=== PATIENT | male | born 1955 | race Caucasian/White ===

== ENCOUNTER 2020-02-19 07:15 | Outpatient (REF) | payer MEDICAID, SELFPAY ==
--- NOTE | 2020-02-19 07:28 | CT_ITS ---
EXAMINATION: CT CHEST SCREENING CLINICAL INFORMATION: Nicotine dependence. COMPARISON: CT chest 09/30/2014. TECHNIQUE: Multidetector volumetric CT imaging of the chest is performed without contrast using low dose technique. Additional 2D coronal and sagittal reformatted images and axial 3D maximum intensity projection (MIP) images are generated on the CT workstation. This CT examination was performed using dose optimization techniques as appropriate, variously including the following: *Automated exposure control *Adjustment of mA and/or kV according to patient size (this includes techniques or standardized protocols for targeted exams where dose is matched to indication/reason for exam; i.e. extremities or head) *Use of iterative reconstruction technique DLP: 53 mGy-cm. FINDINGS: LUNGS: There is diffuse paraseptal and centrilobular emphysema. Previously visualized 2 mm nodule left upper lobe and a 3 mm nodule right lower lobe adjacent to major fissure have resolved or not visualized. There is mild thickening of the right major fissure new since the previous study. The thickness is nodular and measures approximately 7 mm at the thickest segment on axial image 248/6. There is mild subpleural thickening and patchy of ground-glass opacity right lower lobes subpleural location similar to previous study. A 2 mm nodule in the left upper lobe, axial image 256/6 is stable, previously visualized on image 236/4. Calcified tumor nodule right lower lobe is stable. Peripheral subpleural base nodule right lower lobe seen previously is not visualized on the present exam. MEDIASTINUM: The thyroid lobes are symmetrical and normal. The central trachea and the bronchi are widely patent. Heart size and the great vessels are normal caliber. There is mild atherosclerotic changes of thoracic arch and coronary artery calcifications. No pericardial effusion seen. PLEURA: There is no pleural effusion. No pleural mass or thickening. AXILLA: No lymphadenopathy. UPPER ABDOMEN: Visualized liver, spleen, pancreas and bilateral adrenal glands are unremarkable. OSSEOUS STRUCTURES: No gross bony abnormality seen. CT/CT lung screening IMPRESSION: Interval resolution of several pulmonary nodules. No new pulmonary nodules seen. ASSESSMENT: Lung-RADS category 2: Benign. RECOMMENDATION: Low-dose annual CT chest.
== END 2020-02-19 07:16 | disposition home or self-care (01) ==
LOC: HO.CT 07:15
PROVIDERS: Visit Provider Surgery
DX: Z12.2 Encounter for screening for malignant neoplasm of respiratory organs (principal); F17.210 Nicotine dependence, cigarettes, uncomplicated
CPT/HCPCS: 71250

== ENCOUNTER → 2020-08-26 08:46 | Outpatient (BNVA) | payer MEDICAID, SELFPAY | PROVIDERS: PCP Nurse Practitioner Family; Visit Provider Internal Medicine | DX: R07.2 Precordial pain (principal); I25.10 Atherosclerotic heart disease of native coronary artery without angina pectoris; I10 Essential (primary) hypertension; F17.200 Nicotine dependence, unspecified, uncomplicated; E78.5 Hyperlipidemia, unspecified; Z79.899 Other long term (current) drug therapy; Z71.6 Tobacco abuse counseling | CPT/HCPCS: 93005; 99212 ==

== ENCOUNTER → 2020-10-15 09:09 | Outpatient (REF) | payer MEDICAID, SELFPAY ==
--- NOTE | 2020-10-15 09:13 | CA_ITS ---
Transthoracic Echocardiogram Patient (Last, First, Middle): Marques Hoskins L Gender: Male Date of : 1955 Age: 64 Procedure Date: 10/15/2020 Procedure Type: Transthoracic Echocardiogram Location: OP Height: 165.1 cm Weight: 90.72 kg BSA: 1.98 m2 Heart Rate: bpm BP: 138 / 64 mmHg Health Safety Coordinator: CHEVY Referring MD: Vega Mays MD Symptoms: I25.10 - Atherosclerotic heart disease of [place] coronary... Study Quality: Fair ECG Rhythm: Sinus Conclusions: - The left ventricular systolic function is normal. The visually estimated ejection fraction is between 60-65%. - No obvious valvular pathology seen on this study. Findings Left Ventricle Normal left ventricular cavity size. There is normal left ventricular wall thickness. The left ventricular systolic function is normal. The visually estimated ejection fraction is between 60-65%. The calculated ejection fraction is 64% by biplane method. There is no evidence of regional wall motion abnormalities. E/E prime ratio is between 8 and 15 consistent with indeterminate filling pressures. Evidence suggests grade I (mild) diastolic dysfunction. Right Ventricle Normal right ventricular cavity size and systolic function. Atria Both atria are normal in size. Aortic Valve There is a normal trileaflet aortic valve. There is no aortic valve stenosis. There is no aortic valve regurgitation. Mitral Valve The mitral valve appears normal. There is no mitral valve regurgitation. There is no mitral valve stenosis. Pulmonic Valve The pulmonic valve was not well visualized. Tricuspid Valve Normal tricuspid valve structure. There is trace tricuspid valve regurgitation. Tricuspid regurgitation envelope is inadequate for calculation of right ventricular systolic pressure. Great Vessels The asc aorta is normal in size. Venous The inferior vena cava is normal in size and collapses greater than 50% with inspiration. Pericardium/Pleural There is no evidence of pericardial effusion. Prior Study Comparison No significant change compared to prior study dated: 11/17/2019. Recommendations, Care & Conclusions No obvious valvular pathology seen on this study. Measurements M-Mode Liner Measurements Normals - Women/Men AOV Cusps: 2.00 1.5-2.6 cm/m2 2D Linear Measurements IVSd: 0.78 0.6-0.9/0.6-1.0 cm LVIDd: 4.51 3.9-5.3/4.2-5.9 cm LVIDd Index: 2.28 2.4-3.2/2.2-3.1 cm/m2 LVIDs: 2.51 2.0-3.6 cm LVPWd: 0.90 0.7-1.1 cm Ao Root: 3.10 2.1-3.5 cm LA Diam: 3.90 2.7-3.8/3.0-4.0 cm LAIDs Index: 1.97 1.5-2.3 cm/m2 LV Mass: 150.54 67-162/88-224 g LV Mass Index: 76.03 43-95/49-115 g/m2 LVOT Diam: 2.00 3.0+(-)1.3 cm 2D Systolic Function EF 4C: 66.60 >55% EF 2C: 60.30 >55% EF BiP: 64.40 >55% Mitral Valve MV Pk E: 1.05 MV PK A: 1.18 MV Decel Time: 347.00 E/A: 0.90 E'Lateral: 7.72 E'Medial: 5.11 E/E' Med: 20.50 E/E' Lat: 13.60 PHT: 102.00 MVA PHT: 2.16 Decel Hughes: 3.04 Aortic Valve AoV Pk Stanton: 1.26 AoV Mn Stanton: 0.93 AoV VTI: 0.30 AoV Pk Grad: 6.00 Aov Mn Grad: 4.00 VÍCTOR Cont.VTI: 2.86 LVOT LVOT Pk Stanton: 1.24 LVOT Mn Stanton: 0.85 LVOT VTI: 0.27 LVOT Pk Grad: 6.00 LVOT Mn Grad: 3.00 LVOT Diam: 2.00 LVOT Area: 3.14 Diastolic Function MV Pk E: 1.05 MV Pk A: 1.18 E/A: 0.90 E'Medial: 5.11 E/E' Med: 20.50 E' Laterial: 7.72 E/E' Lat: 13.60 Tricuspid Valve RA Press: 3.00 Great Vessels Aorta Ao Root-2D: 3.10 2.0-3.7 cm Ao Asc: 3.30 2.1-3.4 cm Pulmonary Valve PV Pk Stanton: 1.15 Peak PV Grad: 5.00 Updated in Other Vendor System with Status of Final Vega Mays MD electronically signed on 10/16/2020 2:50:29 PM with status of Final
== END ==
LOC: HO.CARD 09:09
PROVIDERS: Visit Provider Internal Medicine
DX: R07.2 Precordial pain (principal); I25.10 Atherosclerotic heart disease of native coronary artery without angina pectoris
CPT/HCPCS: 93306

== ENCOUNTER → 2020-10-19 08:16 | Outpatient (BNVA) | payer MEDICAID, SELFPAY | PROVIDERS: PCP Nurse Practitioner Family; Visit Provider Internal Medicine | DX: I25.10 Atherosclerotic heart disease of native coronary artery without angina pectoris (principal); I10 Essential (primary) hypertension; R07.2 Precordial pain; E78.5 Hyperlipidemia, unspecified | CPT/HCPCS: 99212 ==

== ENCOUNTER 2022-01-27 09:13 | Outpatient (REF) | payer MEDICAID, SELFPAY ==
--- NOTE | ~2022-01-27 | CT_ITS ---
EXAMINATION: CT CHEST SCREENING CLINICAL INFORMATION: Current smoker. 50 pack-year history. COMPARISON: Previous chest CT most recent January 2020 TECHNIQUE: Multidetector volumetric CT imaging of the chest is performed without contrast using low dose technique. Additional 2D coronal and sagittal reformatted images and axial 3D maximum intensity projection (MIP) images are generated on the CT workstation. This CT examination was performed using dose optimization techniques as appropriate, variously including the following: *Automated exposure control *Adjustment of mA and/or kV according to patient size (this includes techniques or standardized protocols for targeted exams where dose is matched to indication/reason for exam; i.e. extremities or head) *Use of iterative reconstruction technique DLP: 61 mGy-cm FINDINGS: LUNGS: There is evidence of emphysema. There is evidence of peripheral interstitial lung disease with increased peripheral interstitial markings, increased peripheral attenuation and traction bronchiolectasis. This is seen diffusely throughout the lungs. This is greatest at the lung bases in the right lower lobe. This appears increased from previous exams. Stable 2 mm calcified right lower lobe nodule axial image 219 series 5. The other previously described small pulmonary nodules not appreciated. There is stable pleural thickening along the right major fissure and probable accessory right lower lobe fissure. There is a new 3 mm peripheral or subpleural nodular density right upper lobe axial image 248 series 5. On sagittal and coronal images this appears more linear and may represent an area of scarring or atelectasis as opposed to a nodule. No endobronchial or endotracheal lesion. MEDIASTINUM: Normal heart size. No pericardial effusion. Normal caliber thoracic aorta. Small mediastinal lymph nodes. No enlarged lymph nodes. CORONARY ARTERY CALCIFICATION: Moderate PLEURA: There is no pleural effusion. No pleural mass or thickening. AXILLA: No lymphadenopathy. UPPER ABDOMEN: Severe atherosclerotic disease. There may be diverticulosis of the colon. OSSEOUS STRUCTURES: Unremarkable. CT/CT lung screening IMPRESSION: Emphysema and interstitial lung disease. Interstitial disease has increased compared to 2020 exam. Stable thickening along the right pleural fissure and small calcified right lower lobe nodule. ASSESSMENT: Lung-RADS category 2: Benign RECOMMENDATION: Annual low-dose chest CT follow-up recommended.
== END 2022-01-27 09:14 | disposition home or self-care (01) ==
LOC: HO.CT 09:13
PROVIDERS: Visit Provider Physician Assistant Medical
DX: Z12.2 Encounter for screening for malignant neoplasm of respiratory organs (principal); F17.210 Nicotine dependence, cigarettes, uncomplicated
CPT/HCPCS: 71271

== ENCOUNTER 2023-01-30 09:51 | Outpatient (REF) | payer MEDICARE, MEDICAID, SELFPAY ==
--- NOTE | ~2023-01-30 | US_ITS ---
EXAMINATION: US RETROPERITONEAL LIMITED (AORTA) CLINICAL INFORMATION: Atherosclerotic heart disease. Smoker. Screening. COMPARISON: CT abdomen and pelvis 07/27/2014. TECHNIQUE: Manzo-scale, color Doppler and spectral Doppler evaluation of the abdominal aorta. Technically difficult study secondary to body habitus. FINDINGS: Atherosclerotic aorta. The measurements of the aorta in maximum AP and transverse dimensions respectively are as follows: Proximal: 2.8 x 2.5 cm. Mid: 2.6 x 2.9 cm. Distal: 1.7 x 2.3 cm. PSV: 95.4 cm/s. The measurements of the common iliac arteries in maximum AP and TRV dimensions are as follows: Right: AP: 1.1 cm. TRV: 1.2 cm. Left: AP: 0.8 cm. TRV: 1.1 cm. US/US aorta IMPRESSION: Negative for abdominal aortic aneurysm.
== END 2023-01-30 09:52 | disposition home or self-care (01) ==
LOC: HO.HMGCX 09:51
PROVIDERS: PCP Nurse Practitioner Family; Visit Provider Nurse Practitioner Family
DX: I25.10 Atherosclerotic heart disease of native coronary artery without angina pectoris (principal); F17.219 Nicotine dependence, cigarettes, with unspecified nicotine-induced disorders
CPT/HCPCS: 76775

== ENCOUNTER 2023-03-07 08:30 | Outpatient (REF) | payer MEDICARE, MEDICAID, SELFPAY ==
--- NOTE | ~2023-03-07 | CT_ITS ---
EXAMINATION: CT CHEST SCREENING CLINICAL INFORMATION: 50 pack year smoker COMPARISON: None available. TECHNIQUE: Multidetector volumetric CT imaging of the chest is performed without contrast using low dose technique. Additional 2D coronal and sagittal reformatted images and axial 3D maximum intensity projection (MIP) images are generated on the CT workstation. This CT examination was performed using dose optimization techniques as appropriate, variously including the following: *Automated exposure control *Adjustment of mA and/or kV according to patient size (this includes techniques or standardized protocols for targeted exams where dose is matched to indication/reason for exam; i.e. extremities or head) *Use of iterative reconstruction technique DLP: 66 mGy-cm FINDINGS: [employer]ING: Aortic calcifications. Clear lungs. LUNGS: Trachea and bronchi are patent. Paraseptal emphysema. Mild centrilobular emphysema. Dependent atelectasis. No consolidations or groundglass opacities. Stable 2 mm subpleural RUL 6:232. No new or enlarging pulmonary nodules. MEDIASTINUM:. No thyroid abnormality. No pathologic lymphadenopathy. Nonenlarged heart. No pericardial effusion. Atherosclerotic calcifications nonaneurysmal aorta and branch vessels. Nonenlarged pulmonary arteries. CORONARY ARTERY CALCIFICATION: Severe PLEURA: There is no pleural effusion. No pleural mass. Unchanged right fissural nodularity. AXILLA: No lymphadenopathy. UPPER ABDOMEN: Unremarkable OSSEOUS STRUCTURES: No suspicious osseous lesions. CT/CT lung screening IMPRESSION: Stable 2 mm right upper lobe pulmonary nodule and emphysema. ASSESSMENT: Lung-RADS category 2: Benign RECOMMENDATION: Routine annual low-dose CT screening in 12 months.
== END 2023-03-07 08:31 | disposition home or self-care (01) ==
LOC: HO.CT 08:30
PROVIDERS: PCP Nurse Practitioner Family; Visit Provider Physician Assistant Medical
DX: Z12.2 Encounter for screening for malignant neoplasm of respiratory organs (principal); F17.210 Nicotine dependence, cigarettes, uncomplicated
CPT/HCPCS: 71271

== ENCOUNTER → 2023-03-26 07:41 | Day surgery (SDC) | payer MEDICARE, MEDICAID, SELFPAY ==
--- NOTE | 2023-03-20 14:22 | HO.ANESPROP2 ---
HPI - Anesthesia Eval Consult details Narrative: 67yo M for Left Left Cataract Extraction IOL Insertion Medically optimized No previous cataract on record [facility] Active Problems Active Problems: All Active Problems (Updated 03/13/23 @ 13:00 by Sujata Salazar PA-C) Other and unspecified hyperlipidemia (Acute) Essential hypertension (Acute) Atherosclerotic cardiovascular disease (Acute) Precordial chest pain (Acute) Past Medical History Medical History (Updated 03/13/23 @ 13:00 by Sujata Salazar PA-C) Other and unspecified hyperlipidemia Essential hypertension Atherosclerotic cardiovascular disease Family History Family History Father Alzheimer disease Myocardial infarction CVD (cardiovascular disease) Mother Alzheimer disease HTN (hypertension) Surgical History Surgical History History of cardiac catheterization (~09/16/14) Social History (Updated 10/19/20 @ 08:45 by CHERYL Levy) Patient Tobacco Use Status: Current everyday Tobacco user Tobacco use type: Cigarette Cigarette Packs Per Day: 1 Cigarettes Per Day: 20.0 Use of substances other than those prescribed or required for medical reasons: No Are you DNR?: No Advance Directives: No Advance Directives Information Provided: Yes Advance Directives on File: No Meds Allergies Allergy/AdvReac Type Severity Reaction Status Date / Time No Known Allergies Allergy Verified 10/19/20 08:45 [No Known Allergies*] oxycodone AdvReac Unknown does not Verified 10/19/20 08:45 want unless necessary Home Medications Medication Instructions Recorded Confirmed Last Taken Type aspirin 81 mg tablet,delayed 81 mg PO DAILY 08/26/20 10/19/20 Unknown History release atorvastatin 20 mg tablet 20 mg PO DAILY 08/26/20 10/19/20 Unknown History lisinopril 20 mg tablet 20 mg PO DAILY 08/26/20 10/19/20 Unknown History metoprolol succinate 100 mg 100 mg PO DAILY 08/26/20 10/19/20 Unknown History tablet,extended release 24 hr nitroglycerin 0.4 mg sublingual 0.4 mg sublingual Q5M PRN 08/26/20 10/19/20 Unknown History tablet Assessment and Plan Assessment Anesthesia Assessment: Chart Reviewed
[2023-03-26 09:31] VITALS: BMI 31.3
--- NOTE | 2023-03-26 09:52 | PC.NURSE ---
patient requesting medication to help ease his anxiety before the IV placement. [employer] to Dr. Richey and Dr. Freeman. Orders received for 025mg ativan po from Dr. Richey. patient refusing ativan dose, states i take 3 pills of ativan at home, i want something stronger . Patient ripped off BP cuff and unhooked EKG leads and states I am leaving . this RN asked if patient wants to wait to speak to anesthesia and he refused. Dr Freeman, Dr. Richey, Dr. Coles and Shannan Wang, [employer] aware.
== END ==
PROVIDERS: PCP Nurse Practitioner Family; Visit Provider Ophthalmology
DX: H25.12 Age-related nuclear cataract, left eye (principal); Z53.29 Procedure and treatment not carried out because of patient's decision for other reasons; I10 Essential (primary) hypertension; Z79.899 Other long term (current) drug therapy
CPT/HCPCS: J3301

== ENCOUNTER 2023-07-18 09:19 | Emergency (ER) | payer MEDICARE, MEDICAID, SELFPAY ==
--- NOTE | ~2023-07-18 | XR_ITS ---
EXAMINATION: XR CHEST CLINICAL INFORMATION: Shortness of breath COMPARISON: Chest radiograph from 10/23/2017 TECHNIQUE: Frontal view of the chest was obtained. FINDINGS: Chronic interstitial lung markings. Bibasilar streaky opacities potentially representing atelectasis versus scarring. Right apical pleural parenchymal scarring. No pneumothorax. Trachea is midline. Cardiac mediastinal silhouette is borderline enlarged. Aorta demonstrates a sclerotic calcifications. No large pleural effusion. Osseous structures are intact. Soft tissues are unremarkable. XR/XR chest 1V IMPRESSION: 1. Chronic interstitial lung markings. 2. Bibasilar streaky opacities potentially representing atelectasis versus scarring. 3. Right apical pleural parenchymal scarring.
[2023-07-18 09:32] VITALS: BP 146/41; PULSE 75; RESP 22; TEMP 36.7; O2SAT 98; BMI 32.9
--- NOTE | 2023-07-18 09:38 | ECG_ITS ---
Test Reason : sob, dizziness Blood Pressure : / mmHG Vent. Rate : 068 BPM Atrial Rate : 068 BPM P-R Int : 196 ms QRS Dur : 070 ms QT Int : 398 ms P-R-T Axes : 089 003 041 degrees QTc Int : 423 ms Normal sinus rhythm Normal ECG When compared with ECG of 20-JUL-2015 19:47, Vent. rate has decreased BY [address] and T wave abnormality improved Referred By: Generic ED Physician Electronically Signed By:SHAILA COPELAND
[2023-07-18 10:08] LABS: MANUAL DIFF FLAG NO
[2023-07-18 10:15] LABS: Basophils Absolute Auto 0.1 X10*3/uL (0.0-0.2); Basophils Percent Auto 0.9 % (0-2); Eosinophils Absolute Auto 1.2 X10*3/uL (0.0-0.4); Eosinophils Percent Auto 10.6 % (0-4); Hematocrit 40.9 % (42.0-52.0); Hemoglobin 14.7 g/dl (14.0-18.0); Imm Gran Abs Auto 0.06 X10*3/uL (0.00-0.03); Imm Gran Pct Auto 0.5 % (0.0-0.4); Lymphocytes Absolute Auto 3.2 X10*3/uL (1.2-4.9); Lymphocytes Percent Auto 28.1 % (20-40); Mean Corpuscular HGB Conc 35.9 g/dl (31.0-36.0); Mean Corpuscular Hemoglobin 33.3 pg (27.0-33.0); Mean Corpuscular Volume 92.5 fL (80.0-98.0); Mean Platelet Volume 8.7 fL (9.4-12.4); Monocytes Absolute Auto 1.3 X10*3/uL (0.1-1.2); Monocytes Percent Auto 11.2 % (2-11); Neutrophils Absolute Auto 5.6 x10*3/uL (2.0-8.3); Neutrophils Percent Auto 48.7 % (45-73); Platelet Count 233 X10*3/uL (160-400); Red Blood Count 4.42 X10*6/uL (4.60-5.80); Red Cell Distribution Width 12.7 % (11.0-16.0); White Blood Count 11.5 X10*3/uL (4.8-10.8)
[2023-07-18 10:30] LABS: Anion Gap 12 (12-20); Blood Urea Nitrogen 5 mg/dL (9-16); Calcium 9.3 mg/dL (8.4-10.2); Carbon Dioxide 25 mmol/L (22-29); Chloride 95 mmol/L (96-108); Creatinine Clr Calc Pharmacy 113.8; Estimated Glomerular Filt Rate > 60; Glucose Random 82 mg/dL (60-115); Potassium 4.4 mmol/L (3.3-5.1); Sodium 128 mmol/L (135-145)
[2023-07-18 10:41] LABS: Troponin-I High Sensitivity < 2.7 ng/L (<3.5-35.0)
[2023-07-18 10:50] LABS: Influenza A PCR NEGATIVE (Negative); Influenza B PCR NEGATIVE (Negative); Resp Syncy Virus RNA Qual PCR NEGATIVE (Negative); SARS COV2 PCR INHOUSE NEGATIVE (Negative)
[2023-07-18 12:20] VITALS: BP 159/69; PULSE 66; RESP 18; TEMP 36.6; O2SAT 98
--- NOTE | 2023-07-18 12:20 | ED.SOB ---
HPI - SOB/Dyspnea General Chief Complaint: Dyspnea Stated Complaint: Difficulty breathing Time Seen by Provider: 07/18/23 12:08 Source: patient Mode of arrival: ambulatory Limitations: no limitations History of Present Illness HPI Narrative: Patient comes to the emergency room complaining of 3 days of cough. Patient states it has been dry, patient has been wheezing more than usual. Patient denies fever chills. Patient states he has history of COPD but is not oxygen dependent. Patient denies any chest pain, no abdominal pain or UTI symptoms. Related Data Home Medications Medication Instructions Recorded Confirmed aspirin 81 mg tablet,delayed 81 mg PO DAILY 08/26/20 10/19/20 release atorvastatin 20 mg tablet 20 mg PO DAILY 08/26/20 10/19/20 lisinopril 20 mg tablet 20 mg PO DAILY 08/26/20 10/19/20 metoprolol succinate 100 mg 100 mg PO DAILY 08/26/20 10/19/20 tablet,extended release 24 hr nitroglycerin 0.4 mg sublingual 0.4 mg sublingual Q5M PRN 08/26/20 10/19/20 tablet Previous Rx's Medication Instructions Recorded azithromycin 250 mg tablet 250 mg PO DAILY 4 days #4 tabs 07/18/23 cefuroxime axetil 250 mg tablet 250 mg PO BID #8 tabs 07/18/23 prednisone 50 mg tablet 50 mg PO DAILY #4 tabs 07/18/23 Allergies Allergy/AdvReac Type Severity Reaction Status Date / Time No Known Allergies Allergy Verified 07/18/23 09:31 [No Known Allergies*] oxycodone AdvReac Unknown does not Verified 10/19/20 08:45 want unless necessary Review of Systems Review of Systems: Constitutional : No Weight loss, No Fever, No Chills, No Night Sweats, No Fatigue, No Malaise ENT/Mouth : No Hearing loss, No Ear Pain, No Nasal Congestion, No Sinus Pain, No Hoarseness, No sore throat, No Rhinorrhea, No Swallowing Difficulty Eyes: No Eye Pain, No Swelling, No Redness, No Foreign Body, No Discharge, No Vision Changes Cardiovascular : No Chest Pain, No SOB, No Dyspnea on Exertion, chronic Orthopnea, No Edema, No Palpitations Respiratory : Complaining of dry cough, wheezing, shortness of breath, chronic orthopnea Gastrointestinal : No Nausea, No Vomiting, No Diarrhea, No Constipation, No abdominal Pain, No Hematochezia, No Melena Genitourinary : no irregular bleeding, No Dysuria, No Urinary Frequency, No Hematuria, No Urinary Incontinence, No Urgency, No Flank Pain, No Urinary Flow Changes, No Hesitancy Musculoskeletal : No joint pain, No Myalgias, No Joint Swelling Skin : No Skin Lesions, No rash Neuro : No Weakness, No Numbness, No Paresthesias, No Loss of Consciousness, No Dizziness, No Headache Psych : No Anxiety/Panic, No Depression, No SI/HI/AH/VH, No Social Issues, Heme/Lymph: No Bruising, No Bleeding,No Lymphadenopathy Endocrine : No Polyuria, No Polydipsia, No Temperature Intolerance [facility] Past Medical History Medical History Other and unspecified hyperlipidemia Essential hypertension Atherosclerotic cardiovascular disease Surgical History History of cardiac catheterization (~09/16/14) Family History Family History Father Alzheimer disease Myocardial infarction CVD (cardiovascular disease) Mother Alzheimer disease HTN (hypertension) Social History Social History (Updated 10/19/20 @ 08:45 by CHERYL Levy) Alcohol intake: current Patient Tobacco Use Status: Current everyday Tobacco user Tobacco use type: Cigarette Cigarette Packs Per Day: 1 Cigarettes Per Day: 20.0 Smoked in Last 30 Days: Yes Advance Directives: Yes Advance Directives Information Provided: No Advance Directives on File: No Physical Exam Vital Signs: Vital Signs: Last Vital Signs Temp 97.8 F 07/18/23 15:18 Pulse 91 07/18/23 15:18 Resp 17 07/18/23 15:18 BP 168/75 H 07/18/23 15:18 Pulse Ox 99 07/18/23 15:18 O2 Del Method Room Air 07/18/23 15:18 BMI result Body Mass Index 32.9 Const: Other: Appearance: Alert. Oriented X3. No acute distress. Eyes: Pupils equal, round and reactive to light. ENT: Pharynx normal. Neck: Normal inspection. Neck supple. No lymph nodes noted. No crepitus CVS: Normal heart rate and rhythm. Pulses normal. Normal S1 and S2 Respiratory: No respiratory distress. Actively coughing, bilateral wheezing, no rales or crackles Abdomen: Soft and nontender. No rigidity. No distention. Skin: Skin warm and dry. Normal skin color. Normal skin turgor. Extremities: No lower extremity edema. No Lacerations. No Rash Neuro: Oriented X 3. No motor deficit. No sensory deficit. Moving all extremities. No slurred speech. CN 2 through 12 grossly intact Psych: calm, cooperative, normal affect Course Course Course Narrative: -patient wheezing significantly, broch protocol started, Solu-Medrol IV and prednisone Medications Administered Discontinued Medications Generic Name Dose Route Start Last Admin Trade Name Freq PRN Reason Stop Dose Admin Albuterol Sulfate 5 mg/ 0 mg 07/18/23 12:24 07/18/23 12:28 Albuterol/Ipratropium 3 ml INHALE 07/18/23 12:25 1 each ONCE ONE Administration Magnesium Sulfate 2 gm in 50 mls @ 25 mls/hr 07/18/23 12:18 07/18/23 15:36 Magnesium Sulfate/H2o IV 07/18/23 14:17 Infused ONCE ONE Infusion Azithromycin 500 mg/ Sodium 250 mls @ 125 mls/hr 07/18/23 12:18 07/18/23 15:34 Chloride IV 07/18/23 14:17 125 mls/hr ONCE ONE Administration Sodium Chloride 1,000 mls @ 999 mls/hr 07/18/23 14:06 07/18/23 14:44 Ns IVCONT 07/18/23 15:06 999 mls/hr .Q1H1M ONE Administration Ceftriaxone Sodium 1 gm/ 50 mls @ 100 mls/hr 07/18/23 14:30 07/18/23 15:35 Sodium Chloride IV 07/18/23 14:59 Infused ONCE ONE Infusion Lorazepam 2 mg 07/18/23 12:17 07/18/23 12:26 Lorazepam 1 Mg Tablet PO 07/18/23 12:18 2 mg ONCE ONE Administration Methylprednisolone Sodium Succinate 125 mg 07/18/23 12:18 07/18/23 13:48 Methylprednisolone Sod Succ 125 Mg/2 Ml Vial IVPUSH 07/18/23 12:19 125 mg ONCE ONE Administration Medical Decision Making Medical Decision Making [facility] Narrative: -my interpretation of labs: White blood cell count 11.5, sodium 128, troponin negative, BNP negative, serology negative for influenza A/B RSV and COVID. -my interpretation of chest x-ray: No obvious pneumonia -I was informed by the patient's nurse the patient ripped his line out and wants to be discharged because his ride is here -patient states that he feels much better. Patient states that he does not want repeat blood work after treatment to see if the sodium improved. Patient states that he feels well -patient was ambulated in the emergency room, oxygen saturation remained at 95% Differential Diagnosis Differential Diagnoses: The differential diagnosis associated with the presentation includes (Asthma, pneumonia, COPD) Admission/Observation Consideration of admission/observation: Escalation of care including admission/observation considered (Admission was considered, patient requested to be discharged) Lab Data MDM Lab Attestation statement: I reviewed the patient's lab results. 07/18/23 10:01 07/18/23 10:01 Labs: Lab Results 07/18/23 Range/Units 10:01 WBC 11.5 H (4.8-10.8) X10*3/uL RBC 4.42 L (4.60-5.80) X10*6/uL Hgb 14.7 (14.0-18.0) g/dl Hct 40.9 L (42.0-52.0) % MCV 92.5 (80.0-98.0) fL MCH 33.3 H (27.0-33.0) pg MCHC 35.9 (31.0-36.0) g/dl RDW 12.7 (11.0-16.0) % Plt Count 233 (160-400) X10*3/uL MPV 8.7 L (9.4-12.4) fL Immature Gran % (Auto) 0.5 H (0.0-0.4) % Neut % (Auto) 48.7 (45-73) % Lymph % (Auto) 28.1 (20-40) % [place] % (Auto) 11.2 H (2-11) % Eos % (Auto) 10.6 H (0-4) % Baso % (Auto) 0.9 (0-2) % Lymph # (Auto) 3.2 (1.2-4.9) X10*3/uL [place] # (Auto) 1.3 H (0.1-1.2) X10*3/uL Eos # (Auto) 1.2 H (0.0-0.4) X10*3/uL Baso # (Auto) 0.1 (0.0-0.2) X10*3/uL Abs Immat Gran (auto) 0.06 H (0.00-0.03) X10*3/uL Absolute Neuts (auto) 5.6 (2.0-8.3) x10*3/uL Absolute Nucleated RBC 0.000 (0.0-0.012) X10*3/uL Nucleated RBC % (auto) 0.0 (0.0-0.2) /100WBC Sodium 128 L (135-145) mmol/L Potassium 4.4 (3.3-5.1) mmol/L Chloride 95 L (96-108) mmol/L Carbon Dioxide 25 (22-29) mmol/L Anion Gap 12 (12-20) BUN 5 L (9-16) mg/dL Creatinine 0.69 (0.5-1.4) mg/dL Estim Creat Clear Calc 113.8 Estimated GFR > 60 Random Glucose 82 (60-115) mg/dL Calcium 9.3 (8.4-10.2) mg/dL Troponin I High Sens < 2.7 (<3.5-35.0) ng/L B-Natriuretic Peptide 35 (<100) pg/mL Influenza Type A (PCR) NEGATIVE (Negative) Influenza Type B (PCR) NEGATIVE (Negative) RSV RNA Qual (PCR) NEGATIVE (Negative) SARS-CoV-2 RNA (RT-PCR) NEGATIVE (Negative) Independent Interpretation I performed an independent interpretation of an: Plain X-Ray Radiology Impression Discussion of test interpretation with radiology: I have reviewed the radiologist's reading. Radiologist Impression: FINDINGS: Chronic interstitial lung markings. Bibasilar streaky opacities potentially representing atelectasis versus scarring. Right apical pleural parenchymal scarring. No pneumothorax. Trachea is midline. Cardiac mediastinal silhouette is borderline enlarged. Aorta demonstrates a sclerotic calcifications. No large pleural effusion. Osseous structures are intact. Soft tissues are unremarkable. XR/XR chest 1V IMPRESSION: 1. Chronic interstitial lung markings. 2. Bibasilar streaky opacities potentially representing atelectasis versus scarring. 3. Right apical pleural parenchymal scarring. Critical Care Time Critical Care Time Critical Care Time: Yes Total Critical Care Time: 45 Attestation: I have personally provided critical care time. Time includes review of lab data, radiology results, discussion with consultants, and monitoring for potential decompensation. Intervention performed as documented. Discharge Plan Discharge Clinical Impression: Chronic lung disease Patient Disposition: Home, Self-Care Instructions: Chronic Bronchitis (ED) Additional Instructions: Please follow-up with your primary care physician tomorrow. If you have any worsening or new symptoms, please return to the emergency room or call 911 Prescriptions: New azithromycin 250 mg tablet 250 mg PO DAILY 4 Days Qty: 4 0RF Rx Instructions: start on day 2 of therapy cefuroxime axetil 250 mg tablet 250 mg PO BID Qty: 8 0RF prednisone 50 mg tablet 50 mg PO DAILY Qty: 4 0RF No Action aspirin 81 mg tablet,delayed release (DR/EC) 81 mg PO DAILY metoprolol succinate 100 mg tablet extended release 24 hr 100 mg PO DAILY lisinopril 20 mg tablet 20 mg PO DAILY atorvastatin 20 mg tablet 20 mg PO DAILY nitroglycerin 0.4 mg tablet, sublingual 0.4 mg sublingual Q5M PRN Rx Instructions: do not exceed 3 doses per episode
[2023-07-18] MEDS: LORazepam 1 MG TABLET 2 MG PO (12:26)
[2023-07-18] MEDS: Albuterol Sulfate 5 MG, Albuterol/Iprat 2.5/0.5MG 3 ML 3 ML INHALE (12:28)
[2023-07-18 12:29] VITALS: PULSE 78; RESP 26; O2SAT 99
[2023-07-18 12:46] LABS: B Type Natriuretic Peptide 35 pg/mL (<100)
--- NOTE | 2023-07-18 12:48 | PC.NURSE ---
medicated with Ativan per MAR for anxiety. pt requests a little more time before needle stick for IV
[2023-07-18] MEDS: methylPREDNISolone Sod Succ 125 MG/2 ML VIAL IVPUSH (13:48)
[2023-07-18] MEDS: Magnesium Sulfate/H2O 2 GM/50 ML PIGGYBACK IV (13:49)
[2023-07-18] MEDS: cefTRIAXone sodium 1 GM in 0.9 % Sodium Chloride 50 ML IV (14:44)
[2023-07-18] MEDS: 0.9 % Sodium Chloride 1,000 ML 999 ML IVCONT (14:44)
[2023-07-18 15:18] VITALS: BP 168/75; PULSE 91; RESP 17; TEMP 36.6; O2SAT 99
[2023-07-18] MEDS: Azithromycin 500 MG in 0.9 % Sodium Chloride 250 ML 125 MG IV (15:34)
--- NOTE | 2023-07-18 15:42 | MHC.EDTECH ---
This pct attempted to draw labs on patient but patient refused to be drawn on hands and veins roll patients is also in pain and says dominic tolerate needles,RN Aware
--- NOTE | 2023-07-18 16:04 | PC.NURSE ---
pt is difficult stick and has multiple attempts at blood draws. pt is refusing additional blood work/blood cultures. MD Field notified and aware and OK'ed abx administration without cultures
[2023-07-18 17:02] VITALS: O2SAT 96
--- NOTE | 2023-07-18 17:02 | PC.NURSE ---
pt refused repeat blood work, says h wants to do it at primary care.
[2023-07-18 17:13] VITALS: BP 168/75; PULSE 100; RESP 18; TEMP 36.6; O2SAT 96
== END 2023-07-18 17:14 | disposition home or self-care (01) ==
PROVIDERS: Emergency Provider Emergency Medicine
DX: J98.4 Other disorders of lung (principal); J44.9 Chronic obstructive pulmonary disease, unspecified; I10 Essential (primary) hypertension; Z11.52 Encounter for screening for COVID-19; Z20.828 Contact with and (suspected) exposure to other viral communicable diseases
CPT/HCPCS: 0241U; 71045; 80048; 83880; 84484; 85025; 93005; 94640; 96365; 96366; 96375; 99285; J0456; J0696; J2930; J3475

== ENCOUNTER → 2023-07-18 09:38 | Outpatient (BNV) | payer MEDICARE, MEDICAID, SELFPAY | PROVIDERS: Emergency Provider Emergency Medicine; Visit Provider Internal Medicine | DX: R06.02 Shortness of breath (principal) | CPT/HCPCS: 93010 ==

== ENCOUNTER → 2023-08-08 02:18 | Outpatient (BNV) | payer MEDICARE, MEDICAID, SELFPAY | PROVIDERS: Admitting Provider Physician Assistant; Emergency Provider Emergency Medicine Emergency Medical Services; PCP Nurse Practitioner Family; Visit Provider Internal Medicine Cardiovascular Disease | DX: I49.3 Ventricular premature depolarization (principal) | CPT/HCPCS: 93010 ==

== ENCOUNTER 2023-08-08 02:24 | Inpatient (IN) | payer MEDICARE, MEDICAID, SELFPAY ==
[2023-08-08] VITALS (13 sets, daily range): BP systolic 130–175; BP diastolic 65–97; PULSE 65–102; RESP 16–26; TEMP 36.5–37.4; O2SAT 90–98; BMI 32.4
--- NOTE | 2023-08-08 | ECG_ITS ---
Test Reason : SOB Blood Pressure : / mmHG Vent. Rate : 074 BPM Atrial Rate : 074 BPM P-R Int : 192 ms QRS Dur : 074 ms QT Int : 382 ms P-R-T Axes : 094 035 045 degrees QTc Int : 424 ms Sinus rhythm with occasional Premature ventricular complexes Otherwise normal ECG When compared with ECG of 18-JUL-2023 09:53, Premature ventricular complexes are now Present Referred By: Generic ED Physician Electronically Signed By:CEM HUTCHINSON MD
--- NOTE | ~2023-08-08 | XR_ITS ---
EXAMINATION: XR CHEST CLINICAL INFORMATION: Cough. COMPARISON: 07/18/2023. TECHNIQUE: Frontal view of the chest was obtained. FINDINGS: The cardiomediastinal silhouette is within normal limits. There is mild diffuse increased interstitial markings which was seen previously. There is no focal lung consolidation or pleural effusion. The bony structures and soft tissues are unremarkable. XR/XR chest 1V IMPRESSION: Mild diffuse increased interstitial markings which was seen previously and could represent chronic changes. No acute cardiopulmonary process.
--- NOTE | 2023-08-08 02:23 | ED_ITS ---
HPI - SOB/Dyspnea General Chief Complaint: Dyspnea Stated Complaint: difficulty breathing Source: patient Mode of arrival: EMS Limitations: no limitations History of Present Illness HPI Narrative: 67-year-old male with a history of COPD, coronary artery disease/[place], smokes 1 pack of cigarettes per day presents emergency department for evaluation of shortness of breath, productive cough x2 days. Patient was started on inhaler and cough suppressant yesterday by PCP. Symptoms got worse last night and this morning . He denied fever, chills, rhinorrhea, nausea, vomiting, diarrhea, myalgias arthralgias. Paramedics noted that the patient had an elevated respiratory rate in the 20s to 30 breaths per minute. Patient continues to smoke 1 pack of cigarettes per day times 50 years. On presentation to the emergency department the patient did appear to be dyspneic. Patient's respiratory rate was elevated at 26, blood pressure was elevated 175/76. Patient's O2 saturation was 96% on room air. Related Data Home Medications ?Medication ?Instructions ?Recorded ?Confirmed aspirin 81 mg tablet,delayed 81 mg PO DAILY 08/26/20 10/19/20 release atorvastatin 20 mg tablet 20 mg PO DAILY 08/26/20 10/19/20 lisinopril 20 mg tablet 20 mg PO DAILY 08/26/20 10/19/20 metoprolol succinate 100 mg 100 mg PO DAILY 08/26/20 10/19/20 tablet,extended release 24 hr nitroglycerin 0.4 mg sublingual 0.4 mg sublingual Q5M PRN 08/26/20 10/19/20 tablet Previous Rx's ?Medication ?Instructions ?Recorded azithromycin 250 mg tablet 250 mg PO DAILY 4 days #4 tabs 07/18/23 cefuroxime axetil 250 mg tablet 250 mg PO BID #8 tabs 07/18/23 prednisone 50 mg tablet 50 mg PO DAILY #4 tabs 07/18/23 Allergies Allergy/AdvReac Type Severity Reaction Status Date / Time No Known Allergies Allergy Verified 08/08/23 02:27 [No Known Allergies*] oxycodone AdvReac Unknown does not Verified 08/08/23 02:27 want unless necessary Review of Systems 2 Review of Systems: Yes all other systems are reviewed and are negative PMF Past Medical History [facility] Narrative: Social history: Patient smokes 1 pack of cigarettes per day times 50 years. The patient occasionally drinks 6-8 beers per day. Patient denies drug use Medical History Other and unspecified hyperlipidemia Essential hypertension Atherosclerotic cardiovascular disease Surgical History History of cardiac catheterization (~09/16/14) Family History Family History Father Alzheimer disease Myocardial infarction CVD (cardiovascular disease) Mother Alzheimer disease HTN (hypertension) Social History Social History (Updated 10/19/20 @ 08:45 by CHERYL Levy) Alcohol intake: current Alcohol intake frequency: 3 or more drinks per day Alcohol type: beer Patient Tobacco Use Status: Current everyday Tobacco user Tobacco use type: Cigarette Cigarette Packs Per Day: 1 Cigarettes Per Day: 20.0 Smoked in Last 30 Days: Yes Use of substances other than those prescribed or required for medical reasons: No Advance Directives: No Advance Directives Information Provided: Yes Physical Exam 2 Vital Signs: Vital Signs: Last Vital Signs Temp 97.9 F 08/08/23 06:58 Pulse 101 H 08/08/23 06:58 Resp 20 08/08/23 06:58 BP 130/65 08/08/23 06:58 Pulse Ox 94 08/08/23 06:58 O2 Del Method Room Air 08/08/23 06:58 BMI result Body Mass Index 32.4 Elevated respiratory rate 26, elevated blood pressure 175/76, O2 saturation was normal 96% on room air Exam: General: Awake, patient was dyspneic and tachypneic, patient has a persistent productive sounding cough, Head: Normocephalic, atraumatic EENT: PERRL, Lids normal, sclera normal, conjunctiva normal, nose normal , ears normal, throat without erythema or exudates Neck: Supple, no adenopathy Lung: Patient has diffuse rhonchi and wheezing, breath sounds symmetric bilaterally Chest: symmetric movement, nontender Heart: regular rate and rhythm, normal S1, S2 no murmurs or rubs Abdomen: soft, non-tender, nondistended, normal bowel sounds Back: no vertebral tenderness, no CVAT Extremities: no deformities, moves all extremities symmetrically Neuro: Awake, alert, oriented, normal speech, cranial nerves intact, moves all extremities symmetrically Psych: Pleasant, cooperative Medications Administered Discontinued Medications Generic Name Dose Route Start Last Admin Trade Name Sathishq PRN Reason Stop Dose Admin Albuterol Sulfate 7.5 mg/ 0 mg 08/08/23 02:20 08/08/23 02:28 Albuterol/Ipratropium 3 ml INHALE 08/08/23 02:21 10 each ONCE ONE Administration Albuterol Sulfate 7.5 mg/ 0 mg 08/08/23 04:40 08/08/23 04:44 Albuterol/Ipratropium 3 ml INHALE 08/08/23 04:41 10 each ONCE ONE Administration Ceftriaxone Sodium 1 gm/ 50 mls @ 100 mls/hr 08/08/23 04:25 08/08/23 05:06 Sodium Chloride IV 08/08/23 04:54 Infused ONCE ONE Infusion Azithromycin 500 mg/ Sodium 250 mls @ 125 mls/hr 08/08/23 04:25 08/08/23 05:30 Chloride IV 08/08/23 06:24 125 mls/hr ONCE ONE Administration Sodium Chloride 1,983 mls @ 1,983 mls/hr 08/08/23 04:26 08/08/23 05:36 Ns IV 08/08/23 05:25 Infused .Q1H STA Infusion Lorazepam 1 mg 08/08/23 02:30 08/08/23 02:32 Lorazepam 1 Mg Tablet PO 08/08/23 02:31 1 mg ONCE ONE Administration Methylprednisolone Sodium Succinate 125 mg 08/08/23 04:25 08/08/23 04:36 Methylprednisolone Sod Succ 125 Mg/2 Ml Vial IVPUSH 08/08/23 04:26 125 mg ONCE ONE Administration Medical Decision Making Medical Decision Making MDM Narrative: 67-year-old male with a history of COPD, coronary artery disease/[place], smokes 1 pack of cigarettes per day presents emergency department for evaluation of shortness of breath, productive cough x2 days. Patient's symptoms became worse yesterday evening and this morning prior to coming to emergency department. Patient was prescribed an albuterol inhaler and cough suppressant by his PCP yesterday and he only got minimal relief with these medications. Vital signs revealed elevated blood pressure 175/76, elevated respiratory rate 26, afebrile with normal O2 saturation on room air. Patient was dyspneic and tachypneic. Lung exam revealed diffuse wheezing and rhonchi. Differential diagnosis: ?Includes but is not limited to pneumonia, bronchitis, congestive heart failure, anemia, electrolyte abnormalities Following evaluation was ordered: CBC, CMP, BNP, VBG, ethanol level, PTT, lactic acid, lipase, troponin, urinalysis, COVID-19, influenza, RSV, chest x-ray one view Patient was initially treated with the following: Ativan 1 mg orally, normal saline 30 cc/kilogram bolus based on ideal weight, Solu-Medrol 125 mg IV, ceftriaxone 1 g IV, azithromycin 500 mg IV, albuterol 10 mg with ipratropium 2.5 mg x2 Course: 06:59 My interpretation patient's laboratory evaluation is as follows: CBC was normal. Sodium and chloride were low 127 and 94-similar low values in the past, patient states that he is on a water pill. AST elevated 42. Troponin was below detectable limits. Lactic acid was elevated at 2.9. Patient's repeat lactic acid increased to 4.2 however this was after the patient received high-dose albuterol nebulizer 10 mg. COVID-19, influenza, RSV were negative. Patient's initial VBG revealed a pH of 7.31 with a pCO2 of 51. After her 2nd nebulizer treatment repeat VBG improved to a pH of 7.33 and a pCO2 of 33. My interpretation of the patient's one-view chest x-ray was right lower lobe infiltrate radiologist felt that the patient had increased interstitial infiltrates. Given my reading the patient was treated with ceftriaxone 1 g IV and azithromycin 500 mg IV. The patient is obese with a BMI of 32.4 therefore he was given a normal saline fluid bolus 30 cc per kg based on his ideal body weight. The patient's presentation was discussed over tiger text with the covering hospitalist and the patient will be admitted for further management of his pneumonia. Admission/Observation Consideration of admission/observation: Escalation of care including admission/observation considered Consult Healthcare Provider Management of the patient was discussed with: Hospitalist Lab Data [facility] Lab Attestation statement: I reviewed the patient's lab results. 08/08/23 03:13 08/08/23 03:13 Labs: Lab Results 08/08/23 08/08/23 08/08/23 Range/Units 02:30 03:13 03:18 WBC 9.5 (4.8-10.8) X10*3/uL RBC 4.44 L (4.60-5.80) X10*6/uL Hgb 14.7 (14.0-18.0) g/dl Hct 41.4 L (42.0-52.0) % MCV 93.2 (80.0-98.0) fL MCH 33.1 H (27.0-33.0) pg MCHC 35.5 (31.0-36.0) g/dl RDW 12.5 (11.0-16.0) % Plt Count 201 (160-400) X10*3/uL MPV 8.5 L (9.4-12.4) fL Immature Gran % (Auto) 0.5 H (0.0-0.4) % Neut % (Auto) 56.1 (45-73) % Lymph % (Auto) 26.8 (20-40) % [place]yer % (Auto) 7.9 (2-11) % Eos % (Auto) 7.9 H (0-4) % Baso % (Auto) 0.8 (0-2) % Lymph # (Auto) 2.6 (1.2-4.9) X10*3/uL Dyer # (Auto) 0.8 (0.1-1.2) X10*3/uL Eos # (Auto) 0.8 H (0.0-0.4) X10*3/uL Baso # (Auto) 0.1 (0.0-0.2) X10*3/uL Abs Immat Gran (auto) 0.05 H (0.00-0.03) X10*3/uL Absolute Neuts (auto) 5.3 (2.0-8.3) x10*3/uL Absolute Nucleated RBC 0.000 (0.0-0.012) X10*3/uL Nucleated RBC % (auto) 0.0 (0.0-0.2) /100WBC APTT 32.6 (26.0-36.8) SEC VBG pH 7.31 L (7.32-7.43) VBG pCO2 51 mmHg VBG pO2 50 mmHg VBG HCO3 26 (22-26) mmol/L VBG O2 Saturation 77.0 % VBG Base Excess -0.2 mmol/L Sodium 127 L (135-145) mmol/L Potassium 4.3 (3.3-5.1) mmol/L Chloride 94 L (96-108) mmol/L Carbon Dioxide 25 (22-29) mmol/L Anion Gap 12 (12-20) BUN < 3 L (9-16) mg/dL Creatinine 0.70 (0.5-1.4) mg/dL Estim Creat Clear Calc 114.7 Estimated GFR > 60 Random Glucose 117 H (60-115) mg/dL Lactic Acid 2.9 H* (0.5-2.0) mmol/L Lactic Acid F/U @ 2Hr (0.5-2.0) mmol/L Calcium 9.2 (8.4-10.2) mg/dL Total Bilirubin 0.5 (0.0-1.0) mg/dL AST 42 H (5-37) U/L ALT 36 (0-40) U/L Alkaline Phosphatase 97 (39-117) U/L Troponin I High Sens < 2.7 (<3.5-35.0) ng/L B-Natriuretic Peptide 43 (<100) pg/mL Total Protein 7.3 (6.5-8.0) g/dL Albumin 3.8 (3.5-5.0) g/dL Lipase 21 (8-78) U/L Urine Color Urine Appearance Urine pH (5.0-9.0) Ur Specific [place] (1.005-1.025) Urine Protein (Neg-Trace) mg/dL Urine Glucose (UA) (Negative) mg/dL Urine Ketones (Negative) mg/dL Urine Blood (Negative) Urine Nitrite (Negative) Ur Leukocyte Esterase (Negative) Urine RBC (0-2) /HPF Urine WBC (0-5) /HPF Ur Squamous Epith Cells (0-2) /HPF Urine Bacteria (None Seen) Hyaline Casts (0-2) /LPF Ethyl Alcohol < 10 mg/dL Influenza Type A (PCR) NEGATIVE (Negative) Influenza Type B (PCR) NEGATIVE (Negative) RSV RNA Qual (PCR) NEGATIVE (Negative) SARS-CoV-2 RNA (RT-PCR) NEGATIVE (Negative) 08/08/23 08/08/23 08/08/23 Range/Units 05:44 05:45 05:55 WBC (4.8-10.8) X10*3/uL RBC (4.60-5.80) X10*6/uL Hgb (14.0-18.0) g/dl Hct (42.0-52.0) % MCV (80.0-98.0) fL MCH (27.0-33.0) pg MCHC (31.0-36.0) g/dl RDW (11.0-16.0) % Plt Count (160-400) X10*3/uL MPV (9.4-12.4) fL Immature Gran % (Auto) (0.0-0.4) % Neut % (Auto) (45-73) % Lymph % (Auto) (20-40) % Dyer % (Auto) (2-11) % Eos % (Auto) (0-4) % Baso % (Auto) (0-2) % Lymph # (Auto) (1.2-4.9) X10*3/uL Dyer # (Auto) (0.1-1.2) X10*3/uL Eos # (Auto) (0.0-0.4) X10*3/uL Baso # (Auto) (0.0-0.2) X10*3/uL Abs Immat Gran (auto) (0.00-0.03) X10*3/uL Absolute Neuts (auto) (2.0-8.3) x10*3/uL Absolute Nucleated RBC (0.0-0.012) X10*3/uL Nucleated RBC % (auto) (0.0-0.2) /100WBC APTT (26.0-36.8) SEC VBG pH 7.33 (7.32-7.43) VBG pCO2 33 mmHg VBG pO2 83 mmHg VBG HCO3 18 L (22-26) mmol/L VBG O2 Saturation 97.0 % VBG Base Excess -6.7 mmol/L Sodium (135-145) mmol/L Potassium (3.3-5.1) mmol/L Chloride (96-108) mmol/L Carbon Dioxide (22-29) mmol/L Anion Gap (12-20) BUN (9-16) mg/dL Creatinine (0.5-1.4) mg/dL Estim Creat Clear Calc Estimated GFR Random Glucose (60-115) mg/dL Lactic Acid (0.5-2.0) mmol/L Lactic Acid F/U @ 2Hr 4.2 H* (0.5-2.0) mmol/L Calcium (8.4-10.2) mg/dL Total Bilirubin (0.0-1.0) mg/dL AST (5-37) U/L ALT (0-40) U/L Alkaline Phosphatase (39-117) U/L Troponin I High Sens (<3.5-35.0) ng/L B-Natriuretic Peptide (<100) pg/mL Total Protein (6.5-8.0) g/dL Albumin (3.5-5.0) g/dL Lipase (8-78) U/L Urine Color Yellow Urine Appearance Clear Urine pH 5.5 (5.0-9.0) Ur Specific [place] 1.010 (1.005-1.025) Urine Protein Negative (Neg-Trace) mg/dL Urine Glucose (UA) Negative (Negative) mg/dL Urine Ketones Negative (Negative) mg/dL Urine Blood Negative (Negative) Urine Nitrite Negative (Negative) Ur Leukocyte Esterase Trace H (Negative) Urine RBC 0-2 (0-2) /HPF Urine WBC 0-5 (0-5) /HPF Ur Squamous Epith Cells 0-2 (0-2) /HPF Urine Bacteria None Seen (None Seen) Hyaline Casts 0-2 (0-2) /LPF Ethyl Alcohol mg/dL Influenza Type A (PCR) (Negative) Influenza Type B (PCR) (Negative) RSV RNA Qual (PCR) (Negative) SARS-CoV-2 RNA (RT-PCR) (Negative) Independent Interpretation I performed an independent interpretation of an: EKG and Plain X-Ray Interpretation: My interpretation patient's one-view chest x-ray is as follows: Right lower lobe infiltrate. My interpretation patient's 12 EKG done at 02:18 hours is as follows: Normal sinus rhythm with a rate of 74, occasional PVC, no ST segment elevation, no ST segment depression, no significant T-wave abnormalities Radiology Impression Discussion of test interpretation with radiology: I have reviewed the radiologist's reading. Radiologist Impression: XR chest 1V IMPRESSION: Mild diffuse increased interstitial markings which was seen previously and could represent chronic changes. No acute cardiopulmonary process. Dictated By: Marques Dinero Critical Care Time Critical Care Time Critical Care Time: Yes Total Critical Care Time: 75 Attestation: Critical Care: The patient was critically ill with a high probability of imminent or life threatening deterioration. I spent greater than 30 minutes of discontinuous time evaluating the patient,delivering critical care at the bedside, discussing and evaluating pertinent data with consultants. Critical care time does not include time spent performing separately billable procedures or teaching. Total time spent performing critical care was 75 minutes. Discharge Plan Discharge Patient Disposition: Admitted As Inpatient Prescriptions: No Action azithromycin 250 mg tablet 250 mg PO DAILY 4 Days Qty: 4 0RF Rx Instructions: start on day 2 of therapy cefuroxime axetil 250 mg tablet 250 mg PO BID Qty: 8 0RF prednisone 50 mg tablet 50 mg PO DAILY Qty: 4 0RF aspirin 81 mg tablet,delayed release (DR/EC) 81 mg PO DAILY metoprolol succinate 100 mg tablet extended release 24 hr 100 mg PO DAILY lisinopril 20 mg tablet 20 mg PO DAILY atorvastatin 20 mg tablet 20 mg PO DAILY nitroglycerin 0.4 mg tablet, sublingual 0.4 mg sublingual Q5M PRN Rx Instructions: do not exceed 3 doses per episode Print Language: Persian
[2023-08-08] MEDS: Albuterol Sulfate 7.5 MG, Albuterol/Iprat 2.5/0.5MG 3 ML 3 ML INHALE ×2 (02:28→04:44)
[2023-08-08] MEDS: LORazepam 1 MG TABLET PO (02:32)
[2023-08-08 03:11] LABS: Influenza A PCR NEGATIVE (Negative); Influenza B PCR NEGATIVE (Negative); Resp Syncy Virus RNA Qual PCR NEGATIVE (Negative); SARS COV2 PCR INHOUSE NEGATIVE (Negative)
[2023-08-08 03:21] LABS: MANUAL DIFF FLAG NO
[2023-08-08 03:22] LABS: Basophils Absolute Auto 0.1 X10*3/uL (0.0-0.2); Basophils Percent Auto 0.8 % (0-2); Eosinophils Absolute Auto 0.8 X10*3/uL (0.0-0.4); Eosinophils Percent Auto 7.9 % (0-4); Hematocrit 41.4 % (42.0-52.0); Hemoglobin 14.7 g/dl (14.0-18.0); Imm Gran Abs Auto 0.05 X10*3/uL (0.00-0.03); Imm Gran Pct Auto 0.5 % (0.0-0.4); Lymphocytes Absolute Auto 2.6 X10*3/uL (1.2-4.9); Lymphocytes Percent Auto 26.8 % (20-40); Mean Corpuscular HGB Conc 35.5 g/dl (31.0-36.0); Mean Corpuscular Hemoglobin 33.1 pg (27.0-33.0); Mean Corpuscular Volume 93.2 fL (80.0-98.0); Mean Platelet Volume 8.5 fL (9.4-12.4); Monocytes Absolute Auto 0.8 X10*3/uL (0.1-1.2); Monocytes Percent Auto 7.9 % (2-11); Neutrophils Absolute Auto 5.3 x10*3/uL (2.0-8.3); Neutrophils Percent Auto 56.1 % (45-73); Platelet Count 201 X10*3/uL (160-400); Red Blood Count 4.44 X10*6/uL (4.60-5.80); Red Cell Distribution Width 12.5 % (11.0-16.0); White Blood Count 9.5 X10*3/uL (4.8-10.8)
[2023-08-08 03:24] LABS: Venous Blood Gas Refer to POC result
[2023-08-08 03:25] LABS: VBG Base Excess -0.2 mmol/L; VBG HCO3 26 mmol/L (22-26); VBG pCO2 51 mmHg; VBG pH 7.31 (7.32-7.43); VBG pO2 50 mmHg
--- NOTE | 2023-08-08 03:26 | MHC.EDTECH ---
PATIENT WAS BIBA FROM HOME ,EKG TAKEN AND WAS READ BY PROVIDER ,VITALS TAKEN ,PATIENT WAS CHANGE INTO HOSPITAL ATTIRE ,AND HOOKED UP TO REGULATORY SPECIALIST ,BLOOD DRAWN INCLUDING BOTH SETS OF BLOOD CULTURE AND LACTIC ACID ,RSV/COVID SWAB COLLECTED AND SENT TO LAB .
[2023-08-08 03:29] LABS: Partial Thromboplastin Time 32.6 SEC (26.0-36.8)
[2023-08-08 03:35] LABS: Lactic Acid 2.9 mmol/L (0.5-2.0)
[2023-08-08 03:38] LABS: Alanine Aminotransferase 36 U/L (0-40); Albumin Level 3.8 g/dL (3.5-5.0); Alkaline Phosphatase 97 U/L (39-117); Anion Gap 12 (12-20); Aspartate Amino Transferase 42 U/L (5-37); Bilirubin Total 0.5 mg/dL (0.0-1.0); Blood Urea Nitrogen < 3 mg/dL (9-16); Calcium 9.2 mg/dL (8.4-10.2); Carbon Dioxide 25 mmol/L (22-29); Chloride 94 mmol/L (96-108); Creatinine Clr Calc Pharmacy 114.7; Estimated Glomerular Filt Rate > 60; Ethanol < 10 mg/dL; Glucose Random 117 mg/dL (60-115); Lipase 21 U/L (8-78); Potassium 4.3 mmol/L (3.3-5.1); Sodium 127 mmol/L (135-145); Total Protein 7.3 g/dL (6.5-8.0)
[2023-08-08 03:46] LABS: Troponin-I High Sensitivity < 2.7 ng/L (<3.5-35.0)
[2023-08-08 03:47] LABS: B Type Natriuretic Peptide 43 pg/mL (<100)
[2023-08-08] MEDS: methylPREDNISolone Sod Succ 125 MG/2 ML VIAL IVPUSH (04:36)
[2023-08-08] MEDS: cefTRIAXone sodium 1 GM in 0.9 % Sodium Chloride 50 ML IV (04:36)
[2023-08-08] MEDS: 0.9 % Sodium Chloride 1,983 ML 1983 ML IV (04:36)
[2023-08-08] MEDS: Azithromycin 500 MG in 0.9 % Sodium Chloride 250 ML 125 MG IV (05:30)
[2023-08-08 06:25] LABS: Reflex Lactate? Lactic Acid Added
[2023-08-08 06:27] LABS: VBG Base Excess -6.7 mmol/L; VBG HCO3 18 mmol/L (22-26); VBG pCO2 33 mmHg; VBG pH 7.33 (7.32-7.43); VBG pO2 83 mmHg
[2023-08-08 06:53] LABS: Venous Blood Gas Refer to POC result; ~Lactic Acid-LAB USE ONLY 4.2 mmol/L (0.5-2.0)
[2023-08-08 06:54] LABS: Appearance Urine Clear; Color Urine Yellow; Glucose Urine UA Negative (Negative); Leukocyte Esterase Urine Trace (Negative); Nitrite Urine Negative (Negative); PH 5.5 (5.0-9.0); UMIC TRIGGER UACC YES; Urine Blood Negative (Negative); Urine Ketones Negative (Negative); Urine Protein Negative (Neg-Trace)
[2023-08-08 06:55] LABS: Bacteria Urine None Seen (None Seen); Hyaline Casts Urine 0-2 /LPF (0-2); RBC Urine 0-2 /HPF (0-2); Squamous Epithelial Cell Urine 0-2 /HPF (0-2); WBC Urine 0-5 /HPF (0-5)
--- NOTE | 2023-08-08 08:03 | PC.NURSE ---
Pt noted with episodes of dry cough, hospital bed provided for comfort and HOB elevated. Seen by admitting SUPPLY SPECIALIST Sujata Joyner. Pt reports more more comfortable at this time. States ETOH 6-8 beers daily, denies h/o withdrawal and smokes cigarettes daily.
--- NOTE | 2023-08-08 08:12 | PM.IMHP ---
History of Present Illness Date of Service: 08/08/23 <ROBERTO Rae - Last Filed: 08/08/23 08:27> Attending physician on admission: Ondina Mak <ROBERTO Rae - Last Filed: 08/08/23 08:27> Chief Complaint: sob, wheezing, cough <ROBERTO Rae - Last Filed: 08/08/23 08:27> 67-year-old male with history of COPD not on home O2, hypertension, hyperlipidemia, coronary artery disease who is a current 1 pack per day smoker with 50 pack-year history presents to the ED earlier today for evaluation of shortness of breath, wheezing, productive cough. He states since the beginning of the pandemic, has been experiencing frequent COPD exacerbations requiring antibiotics and steroid therapy. He has not currently on any maintenance inhalers for his COPD. Over the last 2-3 days has reported worsening shortness of breath, wheezing, and productive cough with clear sputum production which is different than his baseline. He has been using his rescue inhaler multiple times a day with limited effect. On arrival, patient tachypneic to 26 with intermittent tachycardia. There is no leukocytosis. Renal function baseline. Sodium 127, chloride 94, electrolytes otherwise normal. Initial lactic acid 2.9, repeat 4.2, likely secondary to albuterol use, not severe sepsis. Troponin below detectable limits. BNP 43. Urinalysis unremarkable. Ethyl alcohol level undetectable. Negative for COVID-19, RSV, influenza. Chest x-ray negative for focal consolidation but shows mild diffuse increased interstitial markings likely representing chronic changes. In the ED, has received multiple doses of albuterol/DuoNebs, 125 mg IV methylprednisolone, 1 mg lorazepam, 1.9 L IV NS, 1 g ceftriaxone, 500 mg Zithromax. He will be admitted for further management of acute COPD exacerbation. Of note, patient also reports he drinks between 6-8 beers on a daily basis, last drink yesterday evening. No illicit drug use or marijuana use. <ROBERTO Rae - Last Filed: 08/08/23 08:27> Review of Systems Review of Systems: General: No fevers, malaise, unintentional weight loss HEENT: No blurred vision, diplopia. No sore throat, nasal congestion, rhinorrhea, sinus pain, ear pain Cardiovascular: No chest pain, palpitations, or leg edema Respiratory: + shortness of breath, +wheezing, +cough GI: No abdominal pain, nausea, vomiting, diarrhea, constipation, melena, hematochezia : No dysuria, hematuria, increased urinary frequency, decreased urinary output MSK: No myalgia, back pain Neuro: No headaches, weakness, paresthesias Skin: No rashes or lesions <ROBERTO Rae - Last Filed: 08/08/23 08:27> [facility] Medical History: Medical History COPD (chronic obstructive pulmonary disease) Other and unspecified hyperlipidemia Essential hypertension Atherosclerotic cardiovascular disease <ROBERTO Rae - Last Filed: 08/08/23 08:27> Family History: Family History Father Alzheimer disease Myocardial infarction CVD (cardiovascular disease) Mother Alzheimer disease HTN (hypertension) <ROBERTO Rae - Last Filed: 08/08/23 08:27> Surgical History: Surgical History History of cardiac catheterization (~09/16/14) <ROBERTO Rae - Last Filed: 08/08/23 08:27> Social History: Social History Household Members: None Housing: House Do you presently have visiting nurse or other home services: No Alcohol intake: current Alcohol intake frequency: 3 or more drinks per day Alcohol type: beer Comment: overflow Patient Tobacco Use Status: Current everyday Tobacco user Tobacco use type: Cigarette Cigarette Packs Per Day: 1 Cigarettes Per Day: 20.0 Smoked in Last 30 Days: Yes Patient Interested in Nicotine Replacement: Yes Patient Given Instructions on How to Stop Smoking: No Second Hand Smoke Exposure: No Use of substances other than those prescribed or required for medical reasons: No Currently Displaying Signs/Symptoms of Drug Intoxication Withdrawal: No Have you been hit, kicked, punched, or otherwise hurt by someone within the past year? If so, by whom?: No Do you feel safe in your current relationship?: No Current Relationship Is there a partner from a previous relationship who is making you feel unsafe now?: No Are you made to feel afraid or neglected: No Advance Directives: No Advance Directives Information Provided: Yes Do you have thoughts of harming others: None Do you have a plan to hurt others: No Plan Recently lost weight without trying: No Nutrition Risks: No Nutritional Risk Poor oral hygiene: No <ROBERTO Rae - Last Filed: 08/08/23 08:27> Meds Allergies/Adverse reactions: Allergies Allergy/AdvReac Type Severity Reaction Status Date / Time No Known Allergies Allergy Verified 08/08/23 02:27 [No Known Allergies*] oxycodone AdvReac Unknown does not Verified 08/08/23 02:27 want unless necessary <ROBERTO Rae - Last Filed: 08/08/23 08:27> Active Medications: Current Medications Acetaminophen (Acetaminophen 325 Mg Tablet) 650 mg PO Q6H PRN PRN Reason: Pain, Mild (Pain Scale 1-3) Albuterol/Ipratropium (Albuterol/Iprat 2.5/0.5mg 3 Ml Ampul.Neb) 3 ml INHALE RQ4H WHILE AWAKE ELYSSA Enoxaparin Sodium (Enoxaparin Sodium 40 Mg/0.4 Ml Syringe) 40 mg SUBCUT Q24H ELYSSA Azithromycin 500 mg/ Sodium (Chloride) 250 mls @ 125 mls/hr IV Q24H ELYSSA Methylprednisolone Sodium Succinate (Methylprednisolone Sod Succ 40 Mg/Ml Vial) 40 mg IVPUSH Q12H ELYSSA Ondansetron HCl (Ondansetron Hcl 4 Mg/2 Ml Vial) 4 mg IVPUSH Q8H PRN PRN Reason: Nausea and Vomiting Senna (Sennosides 8.6 Mg Tablet) 17.2 mg PO BEDTIME PRN PRN Reason: Constipation Sodium Chloride (0.9 % Sodium Chloride Flush 3 Ml Syringe) 3 ml IVFLUSH QSHIFT ELYSSA <ROBERTO Rae - Last Filed: 08/08/23 08:27> Home medications: Home Medications ?Medication ?Instructions ?Recorded ?Confirmed ?Last Taken ?Type aspirin 81 mg tablet,delayed 81 mg PO DAILY 08/26/20 08/08/23 08/07/23 History release atorvastatin 20 mg tablet 20 mg PO DAILY 08/26/20 08/08/23 08/07/23 History lisinopril 20 mg tablet 20 mg PO DAILY 08/26/20 08/08/23 08/07/23 History metoprolol succinate 100 mg 100 mg PO DAILY 08/26/20 08/08/23 08/07/23 History tablet,extended release 24 hr nitroglycerin 0.4 mg sublingual 0.4 mg sublingual Q5M PRN Chest 08/26/20 08/08/23 08/07/23 History tablet Pain albuterol sulfate 90 mcg/actuation 2 puff inhalation QID PRN Wheezing 08/08/23 08/08/23 08/07/23 History aerosol inhaler cyanocobalamin (vitamin B-12) 1,000 mcg PO DAILY 08/08/23 08/08/23 08/07/23 History 1,000 mcg tablet (Vitamin B-12) furosemide 20 mg tablet 20 mg PO DAILY 08/08/23 08/08/23 08/07/23 History thiamine HCl (vitamin B1) 100 mg 100 mg PO DAILY 08/08/23 08/08/23 08/07/23 History tablet (Vitamin B-1) <ROBERTO Rae - Last Filed: 08/08/23 08:27> Physical Exam Vital Signs and Narrative: Vital Signs: Last Vital Signs Temp 97.9 F 08/08/23 06:58 Pulse 101 H 08/08/23 06:58 Resp 20 08/08/23 06:58 BP 130/65 08/08/23 06:58 Pulse Ox 94 08/08/23 06:58 O2 Del Method Room Air 08/08/23 06:58 BMI result Body Mass Index 32.4 <ROBERTO Rae - Last Filed: 08/08/23 08:27> Constitutional - Awake and Alert, No apparent distress Eyes - PERRLA, EOMI Cardiovascular - S1S2, RRR, No edema Respiratory - Normal lung expansion, Normal respiratory effort, Mild respiratory distress with mild tachypnea but no accessory muscle usage, diminished lung sounds bilaterally with scattered expiratory wheezes in the upper lobes Gastrointestinal - NT / ND; +BS; No rebound or guarding Extremities - no calf tenderness bilaterally, no swelling Skin - Warm/Dry Neurological - Alert & oriented x3 Psychological - Appropriate affect <ROBERTO Rae - Last Filed: 08/08/23 08:27> Results Labs CBC and Chem 7: 08/09/23 06:50 08/09/23 06:50 <ROBERTO Rae - Last Filed: 08/08/23 08:27> Labs: Laboratory Results - last 24 hr 08/08/23 08/08/23 08/08/23 02:30 03:13 03:18 MCV 93.2 MCH 33.1 H MCHC 35.5 RDW 12.5 Plt Count 201 MPV 8.5 L Immature Gran % (Auto) 0.5 H Neut % (Auto) 56.1 Lymph % (Auto) 26.8 Falls % (Auto) 7.9 Eos % (Auto) 7.9 H Baso % (Auto) 0.8 Lymph # (Auto) 2.6 Falls # (Auto) 0.8 Eos # (Auto) 0.8 H Baso # (Auto) 0.1 Abs Immat Gran (auto) 0.05 H Absolute Neuts (auto) 5.3 Absolute Nucleated RBC 0.000 Nucleated RBC % (auto) 0.0 APTT 32.6 VBG pH 7.31 L VBG pCO2 51 VBG pO2 50 VBG HCO3 26 VBG O2 Saturation 77.0 VBG Base Excess -0.2 Anion Gap 12 Estim Creat Clear Calc 114.7 Estimated GFR > 60 Random Glucose 117 H Lactic Acid 2.9 H* Lactic Acid F/U @ 2Hr Calcium 9.2 Total Bilirubin 0.5 AST 42 H ALT 36 Alkaline Phosphatase 97 Troponin I High Sens < 2.7 B-Natriuretic Peptide 43 Total Protein 7.3 Albumin 3.8 Lipase 21 Urine Color Urine Appearance Urine pH Ur Specific [place] Urine Protein Urine Glucose (UA) Urine Ketones Urine Blood Urine Nitrite Ur Leukocyte Esterase Urine RBC Urine WBC Ur Squamous Epith Cells Urine Bacteria Hyaline Casts Ethyl Alcohol < 10 Influenza Type A (PCR) NEGATIVE Influenza Type B (PCR) NEGATIVE RSV RNA Qual (PCR) NEGATIVE SARS-CoV-2 RNA (RT-PCR) NEGATIVE 08/08/23 08/08/23 08/08/23 05:44 05:45 05:55 MCV MCH MCHC RDW Plt Count MPV Immature Gran % (Auto) Neut % (Auto) Lymph % (Auto) Falls % (Auto) Eos % (Auto) Baso % (Auto) Lymph # (Auto) Falls # (Auto) Eos # (Auto) Baso # (Auto) Abs Immat Gran (auto) Absolute Neuts (auto) Absolute Nucleated RBC Nucleated RBC % (auto) APTT VBG pH 7.33 VBG pCO2 33 VBG pO2 83 VBG HCO3 18 L VBG O2 Saturation 97.0 VBG Base Excess -6.7 Anion Gap Estim Creat Clear Calc Estimated GFR Random Glucose Lactic Acid Lactic Acid F/U @ 2Hr 4.2 H* Calcium Total Bilirubin AST ALT Alkaline Phosphatase Troponin I High Sens B-Natriuretic Peptide Total Protein Albumin Lipase Urine Color Yellow Urine Appearance Clear Urine pH 5.5 Ur Specific [place] 1.010 Urine Protein Negative Urine Glucose (UA) Negative Urine Ketones Negative Urine Blood Negative Urine Nitrite Negative Ur Leukocyte Esterase Trace H Urine RBC 0-2 Urine WBC 0-5 Ur Squamous Epith Cells 0-2 Urine Bacteria None Seen Hyaline Casts 0-2 Ethyl Alcohol Influenza Type A (PCR) Influenza Type B (PCR) RSV RNA Qual (PCR) SARS-CoV-2 RNA (RT-PCR) <ROBERTO Rae - Last Filed: 08/08/23 08:27> Imaging Radiologist's Impressions: Impressions Chest X-Ray 08/08/23 02:40 IMPRESSION: Mild diffuse increased interstitial markings which was seen previously and could represent chronic changes. No acute cardiopulmonary process. <ROBERTO Rae - Last Filed: 08/08/23 08:27> Assessment and Plan (1) COPD exacerbation: Status: Acute <ROBERTO Rae - Last Filed: 08/08/23 08:27> (2) Acute hyponatremia: Status: Acute <ROBERTO Rae - Last Filed: 08/08/23 08:27> 67-year-old male with history of COPD not on home O2, hypertension, hyperlipidemia, coronary artery disease who is a current 1 pack per day smoker with 50 pack-year history admitted for further management of acute COPD exacerbation. # acute COPD exacerbation -tachypneic and mild tachycardia, no leukocytosis. Likely secondary to exacerbation, nontoxic appearing, not sepsis. -CXR negative for focal consolidation -negative for COVID-19, influenza, RSV. Check full viral respiratory panel -IV methylprednisolone 40 mg b.i.d. -DuoNebs Q 4 HR while awake -albuterol nebs p.r.n. -azithromycin 500 mg daily for pleiotropic effect -guaifenesin AC -will likely need maintenance inhaler on discharge given recurrent exacerbation. Consider outpt pft # acute lactic acidosis -due to albuterol use, not severe sepsis #Alcohol use disorder -no evidence of w/d, ehtyl alcohol level undetectable on arrival -drinks 6-8 beers daily, monitor on ciwa -po thiamine, po folic acid -addiction med consult #Acute hyponatremia -likely r/t etoh use -serum osm/urine osm/urine sodium pending -received IVNS. Hold on further IVF -monitor lytes # hypertension -continue furosemide, lisinopril, metoprolol # CAD -continue statin, aspirin, beta-shonda # diastolic dysfunction -continue Lasix # obesity -weight loss efforts encouraged # nicotine dependence -smoking cessation strongly advised, declines NRT DVT prophylaxis-Lovenox Full code Patient requires inpatient stay at least 2 midnights for management of an acute COPD exacerbation with mild respiratory distress and diminished lung sounds requiring IV steroids, scheduled DuoNebs, and close monitoring for pulmonary decompensation <ROBERTO Rae - Last Filed: 08/08/23 08:27> 67-year-old male with history of COPD not on home O2, hypertension, hyperlipidemia, coronary artery disease who is a current 1 pack per day smoker with 50 pack-year history admitted for further management of acute COPD exacerbation. # acute COPD exacerbation -tachypneic and mild tachycardia, no leukocytosis. Likely secondary to exacerbation, nontoxic appearing, not sepsis. -CXR negative for focal consolidation -negative for COVID-19, influenza, RSV. Check full viral respiratory panel -IV methylprednisolone 40 mg b.i.d. -DuoNebs Q 4 HR while awake -albuterol nebs p.r.n. -azithromycin 500 mg daily for pleiotropic effect -guaifenesin AC -will likely need maintenance inhaler on discharge given recurrent exacerbation. Consider outpt pft # acute lactic acidosis -due to albuterol use, not severe sepsis #Alcohol use disorder -no evidence of w/d, ehtyl alcohol level undetectable on arrival -drinks 6-8 beers daily, monitor on ciwa -po thiamine, po folic acid -addiction med consult #Acute hyponatremia -likely r/t etoh use -serum osm/urine osm/urine sodium pending -received IVNS. Hold on further IVF -monitor lytes # hypertension -continue furosemide, lisinopril, metoprolol # CAD -continue statin, aspirin, beta-shonda # diastolic dysfunction -continue Lasix # obesity -weight loss efforts encouraged # nicotine dependence -smoking cessation strongly advised, declines NRT DVT prophylaxis-Lovenox Full code Patient requires inpatient stay at least 2 midnights for management of an acute COPD exacerbation with mild respiratory distress and diminished lung sounds requiring IV steroids, scheduled DuoNebs, and close monitoring for pulmonary decompensation Addendum to history and physical by the advanced practice provider, Vanesa Joyner I interviewed and examined the patient. I discussed their presentation and management with the BALDO. I reviewed the history and physical and agree with the documentation, with the following additions and corrections: 67yo M with COPD, HTN, HFpEF, CAD, ongoing tobacco abuse; presenting with 3d of worsening dyspnea and cough productive of sputum Tachypneic but not hypoxic. COPD exacerbation - methylprednisolone 08/07-, azithromycin 08/07-, standing/prn nebs. Not on controller inhalers, will start upon discharge lactic acidosis - due to albuterol, not sepsis AUD without hx withdrawal - vitamins, Addiction Medicine consult mild hypoNa - likely due to EtOH; monitor BMP CAD - atorvastatin, metoprolol succinate, lisinopril, ASA HFpEF HTN - furosemide, lisinopril, metoprolol succinate tobacco abuse - declines NRT VTE ppx - LMWH dispo - eventually home <Ondina Mak MD - Last Filed: 08/09/23 11:07> Quality Stroke Does the patient have a stroke diagnosis?: No <ROBERTO Rae - Last Filed: 08/08/23 08:27> VTE Prior VTE?: No <ROBERTO Rae - Last Filed: 08/08/23 08:27> VTE Risk Level:: Medical - moderate - high <ROBERTO Rae - Last Filed: 08/08/23 08:27> VTE Device Contraindication: Treatment Not Indicated <ROBERTO Rae - Last Filed: 08/08/23 08:27> VTE Drug Contraindication: N/A - Med Ordered <ROBERTO Rae - Last Filed: 08/08/23 08:27>
[2023-08-08 08:51] LABS: Reflex Lactate? 2 Y
[2023-08-08] MEDS: Folic Acid 1 MG TABLET PO (09:18)
[2023-08-08] MEDS: guaiFEN/Codeine SF 200/20/10ML 10 ML LIQUID 5 ML PO ×4 (09:18→20:10)
[2023-08-08] MEDS: Enoxaparin Sodium 40 MG/0.4 ML SYRINGE SUBCUT (09:19)
[2023-08-08] MEDS: methylPREDNISolone Sod Succ 40 MG/ML VIAL IVPUSH ×2 (09:19→20:11)
--- NOTE | 2023-08-08 10:05 | PHA.MEDREC ---
Pharmacy Consult ? Medication Reconciliation Pharmacy has completed the medication reconciliation, pt was unsure of all medications was only able to name a few. Called pharmacy to confirm, received list and confirmed all medications.
[2023-08-08] MEDS: lisinopriL 20 MG TABLET PO (10:32)
[2023-08-08] MEDS: Metoprolol Succinate ER 100 MG TAB.ER.24H PO (10:32)
[2023-08-08] MEDS: Furosemide 20 MG TABLET PO (10:32)
[2023-08-08] MEDS: Thiamine HCL 100 MG TABLET PO (10:32)
[2023-08-08] MEDS: Albuterol/Iprat 2.5/0.5MG 3 ML AMPUL.NEB INHALE ×3 (11:19→19:33)
[2023-08-08 11:24] LABS: Osmolality Urine 187 mosm/kg (373-1093)
[2023-08-08 11:24] LABS: Osmolality, Serum 271 mosm/kg (281-305)
[2023-08-08 11:32] LABS: Adenovirus PCR Not Detected (Not Detect.); Bordetella parapertussis PCR Not Detected (Not Detect.); Bordetella pertussis PCR Not Detected (Not Detect.); Chlamydia pneumoniae PCR Not Detected (Not Detect.); Coronavirus 229E PCR Not Detected (Not Detect.); Coronavirus HKU1 PCR Not Detected (Not Detect.); Coronavirus NL63 PCR Not Detected (Not Detect.); Coronavirus OC43 PCR Not Detected (Not Detect.); Human metapneumovirus PCR Not Detected (Not Detect.); Influenza A PCR Not Detected (Not Detect.); Influenza B PCR Not Detected (Not Detect.); Mycoplasma pneumoniae PCR Not Detected (Not Detect.); Parainfluenza 1 PCR Not Detected (Not Detect.); Parainfluenza 2 PCR Not Detected (Not Detect.); Parainfluenza 3 PCR Not Detected (Not Detect.); Parainfluenza 4 PCR Not Detected (Not Detect.); RSV PCR Not Detected (Not Detect.); Rhino/Enterovirus PCR Not Detected (Not Detect.)
[2023-08-08 11:35] LABS: SARS-CoV-2 PCR Not Detected (Not Detect.)
[2023-08-08 14:06] LABS: ~Lactic Acid-LAB USE ONLY 5.7 mmol/L (0.5-2.0)
[2023-08-08] MEDS: 0.9 % Sodium Chloride Flush 3 ML SYRINGE IVFLUSH ×2 (16:21→20:13)
[2023-08-08] MEDS: Nicotine 21 MG PATCH.TD24 TRANSDERMA (18:01)
--- NOTE | 2023-08-08 18:59 | MHC.CM.ED ---
IMM 08/07. Copy to patient and t0 medical records. CM met with admitted patient in overflow with bed assignment pending. A&Ox4. Lives alone. Uses no DME or services. Has new patient appointment in September with Dr. Rodriguez at [facility]. Reviewed HCP, patient declines to complete at this time. THRIVE assessment completed-negative. Pt has no needs. D/C plan: Home per patient. He is not interested in any services at discharge. Pt will arrange transportation home. CM will follow for any discharge needs.
[2023-08-08] MEDS: Benzonatate 100 MG CAPSULE 200 MG PO (21:57)
[2023-08-09] VITALS (10 sets, daily range): BP systolic 144–159; BP diastolic 64–85; PULSE 77–98; RESP 16–95; TEMP 36.2–36.9; O2SAT 94–97
[2023-08-09] MEDS: Azithromycin 500 MG in 0.9 % Sodium Chloride 250 ML 125 MG IV (04:58)
[2023-08-09] MEDS: Albuterol/Iprat 2.5/0.5MG 3 ML AMPUL.NEB INHALE ×4 (07:26→19:37)
[2023-08-09 07:36] LABS: Basophils Percent Auto 0.2 % (0-2); Eosinophils Percent Auto 0.2 % (0-4); Hematocrit 37.7 % (42.0-52.0); Hemoglobin 13.7 g/dl (14.0-18.0); Imm Gran Abs Auto 0.51 X10*3/uL (0.00-0.03); Imm Gran Pct Auto 2.8 % (0.0-0.4); Lymphocytes Absolute Auto 1.5 X10*3/uL (1.2-4.9); Lymphocytes Percent Auto 8.1 % (20-40); MANUAL DIFF FLAG SCAN; Mean Corpuscular Hemoglobin 33.3 pg (27.0-33.0); Mean Corpuscular Volume 91.7 fL (80.0-98.0); Monocytes Absolute Auto 0.6 X10*3/uL (0.1-1.2); Monocytes Percent Auto 3.2 % (2-11); Neutrophils Absolute Auto 15.8 x10*3/uL (2.0-8.3); Neutrophils Percent Auto 85.5 % (45-73); PLT CLUMP 1; Red Blood Count 4.11 X10*6/uL (4.60-5.80); SCAN SMEAR FLAG 1; White Blood Count 18.5 X10*3/uL (4.8-10.8)
[2023-08-09 07:37] LABS: Mean Corpuscular HGB Conc 36.3 g/dl (31.0-36.0)
[2023-08-09 07:40] LABS: Anion Gap 15 (12-20); Blood Urea Nitrogen 6 mg/dL (9-16); Calcium 8.9 mg/dL (8.4-10.2); Carbon Dioxide 19 mmol/L (22-29); Chloride 102 mmol/L (96-108); Creatinine Clr Calc Pharmacy 125.5; Estimated Glomerular Filt Rate > 60; Glucose Random 164 mg/dL (60-115); Potassium 4.8 mmol/L (3.3-5.1); Sodium 131 mmol/L (135-145)
[2023-08-09] MEDS: lisinopriL 20 MG TABLET PO (07:47)
[2023-08-09] MEDS: Nicotine 21 MG PATCH.TD24 TRANSDERMA (07:47)
[2023-08-09] MEDS: methylPREDNISolone Sod Succ 40 MG/ML VIAL IVPUSH ×2 (07:47→20:21)
[2023-08-09] MEDS: Atorvastatin Calcium 20 MG TABLET PO (07:48)
[2023-08-09] MEDS: Thiamine HCL 100 MG TABLET PO (07:48)
[2023-08-09] MEDS: Metoprolol Succinate ER 100 MG TAB.ER.24H PO (07:48)
[2023-08-09] MEDS: Aspirin Enteric Coated 81 MG TABLET.DR PO (07:48)
[2023-08-09] MEDS: Furosemide 20 MG TABLET PO (07:48)
[2023-08-09] MEDS: Folic Acid 1 MG TABLET PO (07:48)
[2023-08-09] MEDS: Cyanocobalamin (Vitamin B-12) 1,000 MCG TABLET 1000 MCG PO (07:48)
[2023-08-09] MEDS: Enoxaparin Sodium 40 MG/0.4 ML SYRINGE SUBCUT (07:49)
[2023-08-09] MEDS: 0.9 % Sodium Chloride Flush 3 ML SYRINGE IVFLUSH ×3 (07:49→20:22)
[2023-08-09 08:18] LABS: Platelet Count 193 X10*3/uL (160-400)
[2023-08-09 08:22] LABS: Mean Platelet Volume 9.7 fL (9.4-12.4)
[2023-08-09 08:23] LABS: SLIDE REVIEW VERIFIED
[2023-08-09] MEDS: Benzonatate 100 MG CAPSULE 200 MG PO ×2 (09:08→17:46)
--- NOTE | 2023-08-09 11:07 | P.PNIM_ITS ---
Subjective Subjective Date of Service: 08/09/23 Interval History: wheezing but dyspnea/cough improved not hypoxic Review of Systems Review of Systems: Yes all other systems are reviewed and are negative Physical Exam 2 Vital Signs: Vital Signs: Last Vital Signs Temp 98.0 F 08/09/23 07:02 Pulse 77 08/09/23 07:27 Resp 20 08/09/23 07:27 BP 147/70 H 08/09/23 07:02 Pulse Ox 95 08/09/23 07:02 O2 Del Method Room Air 08/09/23 07:02 BMI result Body Mass Index .phy 32.4 Gen: in no acute distress HEENT: sclera anicteric, moist mucus membranes Neck: supple Lungs: diffuse expiratory wheezing Heart: regular rate and rhythm, no murmurs Abd: soft, non-tender, non-distended Ext: no edema Skin: warm/well-perfused Neuro: alert and oriented x3, no focal findings Psych: appropriate affect Objective Data Active Medications Acetaminophen (Acetaminophen 325 Mg Tablet) 650 mg PO Q6H PRN PRN Reason: Pain, Mild (Pain Scale 1-3) Albuterol Sulfate (Albuterol Sulfate (0.083%) 2.5 Mg/3 Ml Vial.Neb) 2.5 mg INHALE Q2H PRN PRN Reason: Shortness of Breath/Wheezing Albuterol Sulfate (Albuterol Sulfate 90 Mcg 8 Gm Inhaler) 2 puff INHALE QID PRN PRN Reason: Wheezing Albuterol/Ipratropium (Albuterol/Iprat 2.5/0.5mg 3 Ml Ampul.Neb) 3 ml INHALE RQ4H WHILE AWAKE [facility] Last Admin: 08/09/23 07:26 Dose: 3 ml Documented By: STEPHEN Aspirin (Aspirin Enteric Coated 81 Mg Tablet.) 81 mg PO DAILY [facility] Last Admin: 08/09/23 07:48 Dose: 81 mg Documented By: CARISA Atorvastatin Calcium (Atorvastatin Calcium 20 Mg Tablet) 20 mg PO DAILY [facility] Last Admin: 08/09/23 07:48 Dose: 20 mg Documented By: CARISA Benzonatate (Benzonatate 100 Mg Capsule) 200 mg PO TID PRN PRN Reason: Cough Last Admin: 08/09/23 09:08 Dose: 200 mg Documented By: CARISA Cyanocobalamin (Cyanocobalamin (Vitamin B-12) 1,000 Mcg Tablet) 1,000 mcg PO DAILY [facility] Last Admin: 08/09/23 07:48 Dose: 1,000 mcg Documented By: CARISA Enoxaparin Sodium (Enoxaparin Sodium 40 Mg/0.4 Ml Syringe) 40 mg SUBCUT Q24H [facility] Last Admin: 08/09/23 07:49 Dose: 40 mg Documented By: CARISA Folic Acid (Folic Acid 1 Mg Tablet) 1 mg PO DAILY [facility] Last Admin: 08/09/23 07:48 Dose: 1 mg Documented By: CARISA Furosemide (Furosemide 20 Mg Tablet) 20 mg PO DAILY [facility]; Protocol Last Admin: 08/09/23 07:48 Dose: 20 mg Documented By: CARISA Guaifenesin/Codeine Phosphate (Guaifen/Codeine Sf 200/20/10ml 10 Ml Liquid) 5 ml PO Q4H [facility] Last Admin: 08/09/23 07:46 Dose: Not Given Documented By: CARISA Non-Admin Reason: Patient Refused Azithromycin 500 mg/ Sodium (Chloride) 250 mls @ 125 mls/hr IV Q24H [facility] Last Infusion: 08/09/23 07:52 Dose: Infused Documented By: CARISA Lisinopril (Lisinopril 20 Mg Tablet) 20 mg PO DAILY [facility]; Protocol Last Admin: 08/09/23 07:47 Dose: 20 mg Documented By: CARISA Methylprednisolone Sodium Succinate (Methylprednisolone Sod Succ 40 Mg/Ml Vial) 40 mg IVPUSH Q12H [facility] Last Admin: 08/09/23 07:47 Dose: 40 mg Documented By: CARISA Metoprolol Succinate (Metoprolol Succinate Er 100 Mg Tab.Er.24h) 100 mg PO DAILY [facility]; Protocol Last Admin: 08/09/23 07:48 Dose: 100 mg Documented By: CARISA Nicotine (Nicotine 21 Mg Patch.Td24) 21 mg TRANSDERMA DAILY [facility] Last Admin: 08/09/23 07:47 Dose: 21 mg Documented By: CARISA Nitroglycerin (Nitroglycerin 0.4 Mg Tab.Subl) 0.4 mg SUBLINGUAL Q5M PRN PRN Reason: Chest Pain Ondansetron HCl (Ondansetron Hcl 4 Mg/2 Ml Vial) 4 mg IVPUSH Q8H PRN PRN Reason: Nausea and Vomiting Senna (Sennosides 8.6 Mg Tablet) 17.2 mg PO BEDTIME PRN PRN Reason: Constipation Sodium Chloride (0.9 % Sodium Chloride Flush 3 Ml Syringe) 3 ml IVFLUSH QSHIFT [facility] Last Admin: 08/09/23 07:49 Dose: 3 ml Documented By: CARISA Thiamine HCl (Thiamine Hcl 100 Mg Tablet) 100 mg PO DAILY [facility] Last Admin: 08/09/23 07:48 Dose: 100 mg Documented By: CARISA Labs 08/09/23 06:50 08/09/23 06:50 Labs: Laboratory Results - last 24 hr 08/08/23 08/08/23 08/08/23 09:25 09:34 10:39 MCV MCH MCHC RDW Plt Count MPV Immature Gran % (Auto) Neut % (Auto) Lymph % (Auto) [place] % (Auto) Eos % (Auto) Baso % (Auto) Lymph # (Auto) [place] # (Auto) Eos # (Auto) Baso # (Auto) Abs Immat Gran (auto) Absolute Neuts (auto) Absolute Nucleated RBC Nucleated RBC % (auto) Smear Tech's Comments Anion Gap Estim Creat Clear Calc Estimated GFR Random Glucose Osmolality 271 L Lactic Acid F/U @ 4Hr Calcium Urine Osmolality 187 L Respiratory Panel Irvin See Note Adenovirus (Rapid PCR) Not Detected B.pert (TEM-PCR) Not Detected B.parapertussis DNA PCR Not Detected C. pneumoniae DNA (PCR) Not Detected Coronavirus OC43 (PCR) Not Detected Coronavirus HKU1 (PCR) Not Detected Coronavirus 229E (PCR) Not Detected Coronavirus NL63 (PCR) Not Detected Human Metapneumovir PCR Not Detected Influenza A (RT-PCR) Not Detected Influenza B (RT-PCR) Not Detected M. pneumoniae (PCR) Not Detected Parainfluenza 1 (PCR) Not Detected Parainfluenza 2 (PCR) Not Detected Parainfluenza 3 (PCR) Not Detected Parainfluenza 4 (PCR) Not Detected RSV (PCR) Not Detected Entero/Rhino (PCR) Not Detected SARS-CoV-2 RNA (RT-PCR) Not Detected 08/08/23 08/09/23 13:35 06:50 MCV 91.7 MCH 33.3 H MCHC 36.3 H RDW 13.0 Plt Count 193 MPV 9.7 Immature Gran % (Auto) 2.8 H Neut % (Auto) 85.5 H Lymph % (Auto) 8.1 L [place] % (Auto) 3.2 Eos % (Auto) 0.2 Baso % (Auto) 0.2 Lymph # (Auto) 1.5 [place] # (Auto) 0.6 Eos # (Auto) 0.0 Baso # (Auto) 0.0 Abs Immat Gran (auto) 0.51 H Absolute Neuts (auto) 15.8 H Absolute Nucleated RBC 0.000 Nucleated RBC % (auto) 0.0 Smear Tech's Comments VERIFIED Anion Gap 15 Estim Creat Clear Calc 125.5 Estimated GFR > 60 Random Glucose 164 H Osmolality Lactic Acid F/U @ 4Hr 5.7 H* Calcium 8.9 Urine Osmolality Respiratory Panel Irvin Adenovirus (Rapid PCR) B.pert (TEM-PCR) B.parapertussis DNA PCR C. pneumoniae DNA (PCR) Coronavirus OC43 (PCR) Coronavirus HKU1 (PCR) Coronavirus 229E (PCR) Coronavirus NL63 (PCR) Human Metapneumovir PCR Influenza A (RT-PCR) Influenza B (RT-PCR) M. pneumoniae (PCR) Parainfluenza 1 (PCR) Parainfluenza 2 (PCR) Parainfluenza 3 (PCR) Parainfluenza 4 (PCR) RSV (PCR) Entero/Rhino (PCR) SARS-CoV-2 RNA (RT-PCR) Microbiology Microbiology Results: Microbiology 08/08/23 03:13 Blood Culture - Preliminary Blood - Venous No growth after 24 hours. 08/08/23 03:13 Blood Culture - Preliminary Blood - Venous No growth after 24 hours. Assessment and Plan (1) COPD exacerbation: Status: Acute Plan 67yo M with COPD, HTN, HFpEF, CAD, ongoing tobacco abuse; presenting with 3d of worsening dyspnea and cough productive of sputum Tachypneic but not hypoxic. COPD exacerbation - methylprednisolone /10-, azithromycin 4/10-, standing/prn nebs. Not on controller inhalers, will start upon discharge lactic acidosis - due to albuterol, not sepsis leukocytosis - steroid effect, not sepsis AUD without hx withdrawal - vitamins, Addiction Medicine consult mild hypoNa - likely due to EtOH; improving; monitor BMP CAD - atorvastatin, metoprolol succinate, lisinopril, ASA HFpEF HTN - furosemide, lisinopril, metoprolol succinate tobacco abuse - declines NRT VTE ppx - LMWH dispo - home possibly tomorrow In my clinical judgment, the patient requires continued inpatient hospitalization for the following reasons: COPD exac- wheezing Total time managing care of this patient today: 35 minutes. Quality Stroke Does the patient have a stroke diagnosis?: No VTE Prior VTE?: No VTE Risk Level:: Medical - moderate - high VTE Device Contraindication: Treatment Not Indicated VTE Drug Contraindication: N/A - Med Ordered
[2023-08-10] MEDS: Benzonatate 100 MG CAPSULE 200 MG PO (03:04)
[2023-08-10 04:00] VITALS: BP 163/79; PULSE 79; RESP 17; TEMP 36.6; O2SAT 95
[2023-08-10] MEDS: Azithromycin 500 MG in 0.9 % Sodium Chloride 250 ML 125 MG IV (05:29)
[2023-08-10 07:10] LABS: Anion Gap 13 (12-20); Blood Urea Nitrogen 9 mg/dL (9-16); Calcium 8.8 mg/dL (8.4-10.2); Carbon Dioxide 22 mmol/L (22-29); Chloride 102 mmol/L (96-108); Creatinine Clr Calc Pharmacy 125.5; Estimated Glomerular Filt Rate > 60; Glucose Random 132 mg/dL (60-115); Potassium 4.1 mmol/L (3.3-5.1); Sodium 133 mmol/L (135-145)
[2023-08-10 07:21] VITALS: BP 153/70; PULSE 80; RESP 20; TEMP 36.7; O2SAT 96
[2023-08-10] MEDS: Albuterol/Iprat 2.5/0.5MG 3 ML AMPUL.NEB INHALE (07:39)
[2023-08-10 07:42] VITALS: PULSE 75; RESP 20; O2SAT 95
--- NOTE | 2023-08-10 09:31 | PM.DS ---
DS: Providers Provider Date of Service: 08/10/23 Date of admission: 08/08/23 08:07 Date of discharge: 08/10/23 Primary care physician: Candy Ramon NP Consults: 08/08/23 08:24 Addiction Medicine Routine Consulting Provider: Addiction Covering Reason for consultation: etoh use disorder DS: Diagnosis Discharge Diagnosis (1) COPD exacerbation: Status: Acute (2) Acute hyponatremia: Status: Acute (3) Excessive drinking alcohol: Status: Acute (4) Tobacco abuse: Status: Acute DS: Summary Hospital Course Hospital Course: From the history and physical by the admitting hospitalist, ROBERTO Joyner, 08/08/23: 67-year-old male with history of COPD not on home O2, hypertension, hyperlipidemia, coronary artery disease who is a current 1 pack per day smoker with 50 pack-year history presents to the ED earlier today for evaluation of shortness of breath, wheezing, productive cough. He states since the beginning of the pandemic, has been experiencing frequent COPD exacerbations requiring antibiotics and steroid therapy. He has not currently on any maintenance inhalers for his COPD. Over the last 2-3 days has reported worsening shortness of breath, wheezing, and productive cough with clear sputum production which is different than his baseline. He has been using his rescue inhaler multiple times a day with limited effect. On arrival, patient tachypneic to 26 with intermittent tachycardia. There is no leukocytosis. Renal function baseline. Sodium 127, chloride 94, electrolytes otherwise normal. Initial lactic acid 2.9, repeat 4.2, likely secondary to albuterol use, not severe sepsis. Troponin below detectable limits. BNP 43. Urinalysis unremarkable. Ethyl alcohol level undetectable. Negative for COVID-19, RSV, influenza. Chest x-ray negative for focal consolidation but shows mild diffuse increased interstitial markings likely representing chronic changes. In the ED, has received multiple doses of albuterol/DuoNebs, 125 mg IV methylprednisolone, 1 mg lorazepam, 1.9 L IV NS, 1 g ceftriaxone, 500 mg Zithromax. He will be admitted for further management of acute COPD exacerbation. Of note, patient also reports he drinks between 6-8 beers on a daily basis, last drink yesterday evening. No illicit drug use or marijuana use. 67yo M with COPD, HTN, HFpEF, CAD, ongoing tobacco abuse; presenting with 3d of worsening dyspnea and cough productive of sputum; found to be tachypneic but not hypoxic. Admitted [place] [facility] for COPD exacerbation, treated with azithromycin and methylprednisolone along with nebulized bronchodilators with marked symptomatic improvement. Discharged on 3 days of prednisone plus azithromycin and also started on Breo as a maintenance inhaler. Lactic acidosis was due to albuterol use, not sepsis. Counseled to cut down on excessive alcohol use; no signs of withdrawal while in the hospital. Mild hyponatremia improved during hospitalization; BMP should be repeated in 1 week. He was prescribed NRT upon discharge. Time Attestation Discharge Coordination Time (in mins): 35 Quality: Safe Use of Opioids Does Pt have an Active Cancer Diagnosis on the Problem List?: No Quality: Stroke Does the patient have a stroke diagnosis?: No Physical Exam Vital Signs: Vital Signs: Last Vital Signs Temp 98.1 F 08/10/23 07:21 Pulse 75 08/10/23 07:42 Resp 20 08/10/23 07:42 BP 153/70 H 08/10/23 07:21 Pulse Ox 96 08/10/23 07:21 O2 Del Method Room Air 08/10/23 07:21 BMI result Body Mass Index 32.4 Gen: in no acute distress HEENT: sclera anicteric, moist mucus membranes Neck: supple Lungs: clear to auscultation bilaterally Heart: regular rate and rhythm, no murmurs Abd: soft, non-tender, non-distended Ext: no edema Skin: warm/well-perfused Neuro: alert and oriented x3, no focal findings Psych: appropriate affect DS: Data Data Completed and Pending Completed studies during hospitalization [Text1]: Laboratory Results WBC 18.5 X10*3/uL (4.8-10.8) H 08/09/23 06:50 RBC 4.11 X10*6/uL (4.60-5.80) L 08/09/23 06:50 Hgb 13.7 g/dl (14.0-18.0) L 08/09/23 06:50 Hct 37.7 % (42.0-52.0) L 08/09/23 06:50 MCV 91.7 fL (80.0-98.0) 08/09/23 06:50 MCH 33.3 pg (27.0-33.0) H 08/09/23 06:50 MCHC 36.3 g/dl (31.0-36.0) H 08/09/23 06:50 RDW 13.0 % (11.0-16.0) 08/09/23 06:50 Plt Count 193 X10*3/uL (160-400) 08/09/23 06:50 MPV 9.7 fL (9.4-12.4) 08/09/23 06:50 Immature Gran % (Auto) 2.8 % (0.0-0.4) H 08/09/23 06:50 Neut % (Auto) 85.5 % (45-73) H 08/09/23 06:50 Lymph % (Auto) 8.1 % (20-40) L 08/09/23 06:50 [place] % (Auto) 3.2 % (2-11) 08/09/23 06:50 Eos % (Auto) 0.2 % (0-4) 08/09/23 06:50 Baso % (Auto) 0.2 % (0-2) 08/09/23 06:50 Lymph # (Auto) 1.5 X10*3/uL (1.2-4.9) 08/09/23 06:50 [place] # (Auto) 0.6 X10*3/uL (0.1-1.2) 08/09/23 06:50 Eos # (Auto) 0.0 X10*3/uL (0.0-0.4) 08/09/23 06:50 Baso # (Auto) 0.0 X10*3/uL (0.0-0.2) 08/09/23 06:50 Abs Immat Gran (auto) 0.51 X10*3/uL (0.00-0.03) H 08/09/23 06:50 Absolute Neuts (auto) 15.8 x10*3/uL (2.0-8.3) H 08/09/23 06:50 Absolute Nucleated RBC 0.000 X10*3/uL (0.0-0.012) 08/09/23 06:50 Nucleated RBC % (auto) 0.0 /100WBC (0.0-0.2) 08/09/23 06:50 Smear Tech's Comments VERIFIED 08/09/23 06:50 Hold Purple Top SEE NOTE 08/10/23 06:21 APTT 32.6 SEC (26.0-36.8) 08/08/23 03:13 VBG pH 7.33 (7.32-7.43) 08/08/23 05:44 VBG pCO2 33 mmHg 08/08/23 05:44 VBG pO2 83 mmHg 08/08/23 05:44 VBG HCO3 18 mmol/L (22-26) L 08/08/23 05:44 VBG O2 Saturation 97.0 % 08/08/23 05:44 VBG Base Excess -6.7 mmol/L 08/08/23 05:44 Sodium 133 mmol/L (135-145) L 08/10/23 06:21 Potassium 4.1 mmol/L (3.3-5.1) 08/10/23 06:21 Chloride 102 mmol/L (96-108) 08/10/23 06:21 Carbon Dioxide 22 mmol/L (22-29) 08/10/23 06:21 Anion Gap 13 (12-20) 08/10/23 06:21 BUN 9 mg/dL (9-16) 08/10/23 06:21 Creatinine 0.64 mg/dL (0.5-1.4) 08/10/23 06:21 Estim Creat Clear Calc 125.5 08/10/23 06:21 Estimated GFR > 60 08/10/23 06:21 Random Glucose 132 mg/dL (60-115) H 08/10/23 06:21 Osmolality 271 mosm/kg (281-305) L 08/08/23 09:25 Lactic Acid 2.9 mmol/L (0.5-2.0) H* 08/08/23 03:13 Lactic Acid F/U @ 2Hr 4.2 mmol/L (0.5-2.0) H* 08/08/23 05:45 Lactic Acid F/U @ 4Hr 5.7 mmol/L (0.5-2.0) H* 08/08/23 13:35 Calcium 8.8 mg/dL (8.4-10.2) 08/10/23 06:21 Total Bilirubin 0.5 mg/dL (0.0-1.0) 08/08/23 03:13 AST 42 U/L (5-37) H 08/08/23 03:13 ALT 36 U/L (0-40) 08/08/23 03:13 Alkaline Phosphatase 97 U/L (39-117) 08/08/23 03:13 Troponin I High Sens < 2.7 ng/L (<3.5-35.0) 08/08/23 03:13 B-Natriuretic Peptide 43 pg/mL (<100) 08/08/23 03:13 Total Protein 7.3 g/dL (6.5-8.0) 08/08/23 03:13 Albumin 3.8 g/dL (3.5-5.0) 08/08/23 03:13 Lipase 21 U/L (8-78) 08/08/23 03:13 Urine Color Yellow 08/08/23 05:55 Urine Appearance Clear 08/08/23 05:55 Urine pH 5.5 (5.0-9.0) 08/08/23 05:55 Ur Specific [place] 1.010 (1.005-1.025) 08/08/23 05:55 Urine Protein Negative mg/dL (Neg-Trace) 08/08/23 05:55 Urine Glucose (UA) Negative mg/dL (Negative) 08/08/23 05:55 Urine Ketones Negative mg/dL (Negative) 08/08/23 05:55 Urine Blood Negative (Negative) 08/08/23 05:55 Urine Nitrite Negative (Negative) 08/08/23 05:55 Ur Leukocyte Esterase Trace (Negative) H 08/08/23 05:55 Urine RBC 0-2 /HPF (0-2) 08/08/23 05:55 Urine WBC 0-5 /HPF (0-5) 08/08/23 05:55 Ur Squamous Epith Cells 0-2 /HPF (0-2) 08/08/23 05:55 Urine Bacteria None Seen (None Seen) 08/08/23 05:55 Hyaline Casts 0-2 /LPF (0-2) 08/08/23 05:55 Urine Osmolality 187 mosm/kg (373-1093) L 08/08/23 10:39 Ur Random Sodium 38.0 mmol/L 08/08/23 10:39 Ethyl Alcohol < 10 mg/dL 08/08/23 03:13 Respiratory Panel Irvin See Note 08/08/23 09:34 Adenovirus (Rapid PCR) Not Detected (Not Detect.) 08/08/23 09:34 B.pert (TEM-PCR) Not Detected (Not Detect.) 08/08/23 09:34 B.parapertussis DNA PCR Not Detected (Not Detect.) 08/08/23 09:34 C. pneumoniae DNA (PCR) Not Detected (Not Detect.) 08/08/23 09:34 Coronavirus OC43 (PCR) Not Detected (Not Detect.) 08/08/23 09:34 Coronavirus HKU1 (PCR) Not Detected (Not Detect.) 08/08/23 09:34 Coronavirus 229E (PCR) Not Detected (Not Detect.) 08/08/23 09:34 Coronavirus NL63 (PCR) Not Detected (Not Detect.) 08/08/23 09:34 Human Metapneumovir PCR Not Detected (Not Detect.) 08/08/23 09:34 Influenza A (RT-PCR) Not Detected (Not Detect.) 08/08/23 09:34 Influenza Type A (PCR) NEGATIVE (Negative) 08/08/23 02:30 Influenza B (RT-PCR) Not Detected (Not Detect.) 08/08/23 09:34 Influenza Type B (PCR) NEGATIVE (Negative) 08/08/23 02:30 M. pneumoniae (PCR) Not Detected (Not Detect.) 08/08/23 09:34 Parainfluenza 1 (PCR) Not Detected (Not Detect.) 08/08/23 09:34 Parainfluenza 2 (PCR) Not Detected (Not Detect.) 08/08/23 09:34 Parainfluenza 3 (PCR) Not Detected (Not Detect.) 08/08/23 09:34 Parainfluenza 4 (PCR) Not Detected (Not Detect.) 08/08/23 09:34 RSV (PCR) Not Detected (Not Detect.) 08/08/23 09:34 RSV RNA Qual (PCR) NEGATIVE (Negative) 08/08/23 02:30 Entero/Rhino (PCR) Not Detected (Not Detect.) 08/08/23 09:34 SARS-CoV-2 RNA (RT-PCR) Not Detected (Not Detect.) 08/08/23 09:34 Impressions Chest X-Ray 08/08/23 02:40 IMPRESSION: Mild diffuse increased interstitial markings which was seen previously and could represent chronic changes. No acute cardiopulmonary process. Discharge Plan Discharge Anticipated Discharge Date/Time: 08/10/23 09:26 Patient Disposition: Home, Self-Care Discharge Diagnosis: COPD exacerbation hyponatremia excess alcohol use Referrals: Candy Ramon, [employer] MANAGER [Primary Care Provider] - 1 Week Discharge Medications: New benzonatate 100 mg Capsule 200 mg PO TID PRN (Reason: Cough) Qty: 30 0RF nicotine 21 mg/24 hr Patch 24 Hour 21 mg transdermal DAILY Qty: 30 0RF azithromycin 250 mg tablet 250 mg PO DAILY 3 Days Qty: 3 0RF Rx Instructions: start on day 2 of therapy prednisone 20 mg tablet 40 mg PO DAILY Qty: 6 0RF fluticasone furoate-vilanterol [Breo Ellipta] 100-25 mcg/dose blister with device 1 inh inhalation DAILY Qty: 60 0RF Continued furosemide 20 mg tablet 20 mg PO DAILY albuterol sulfate 90 mcg/actuation HFA aerosol inhaler 2 puff inhalation QID PRN (Reason: Wheezing) cyanocobalamin (vitamin B-12) [Vitamin B-12] 1,000 mcg Tablet 1,000 mcg PO DAILY thiamine HCl (vitamin B1) [Vitamin B-1] 100 mg Tablet 100 mg PO DAILY aspirin 81 mg tablet,delayed release (DR/EC) 81 mg PO DAILY metoprolol succinate 100 mg tablet extended release 24 hr 100 mg PO DAILY lisinopril 20 mg tablet 20 mg PO DAILY atorvastatin 20 mg tablet 20 mg PO DAILY nitroglycerin 0.4 mg tablet, sublingual 0.4 mg sublingual Q5M PRN (Reason: Chest Pain) Rx Instructions: do not exceed 3 doses per episode Discharge Orders: Discharge Order (Routine); Ordered 08/10/23 Ordered By: Ondina Mak Diet: Advance to usual diet Activity on Discharge: As tolerated Stand Alone Forms: Patient Portal Discharge page Print Language: Greenlandic Other Ambulatory Orders: Basic Metabolic Panel (Routine) Timeframe: 1 Week Facility: [facility] - Location: Laboratory Ordered By: Ondina Mak Care Plan Goals: lung health Health Concerns: COPD exacerbation hyponatremia excess alcohol use Plan of Treatment: azithromycin 250 mg daily x 3 days prednisone 40 mg daily x 3 days start Breo 1 puff daily nicotine patch to quit smoking benzonatate as needed for cough recheck BMP in 1 week cut down on alcohol use Please follow up with your primary care doctor within 1 week. Return to the hospital if you experience recurrent or worsening symptoms. Assessment: See Discharge Summary. Discharge Date/Time: 08/10/23 11:07
[2023-08-10] MEDS: Metoprolol Succinate ER 100 MG TAB.ER.24H PO (09:34)
[2023-08-10] MEDS: Folic Acid 1 MG TABLET PO (09:34)
[2023-08-10] MEDS: Aspirin Enteric Coated 81 MG TABLET.DR PO (09:35)
[2023-08-10] MEDS: Cyanocobalamin (Vitamin B-12) 1,000 MCG TABLET 1000 MCG PO (09:36)
[2023-08-10] MEDS: lisinopriL 20 MG TABLET PO (09:37)
[2023-08-10] MEDS: Atorvastatin Calcium 20 MG TABLET PO (09:38)
[2023-08-10] MEDS: Furosemide 20 MG TABLET PO (09:38)
[2023-08-10] MEDS: Nicotine 21 MG PATCH.TD24 TRANSDERMA (09:39)
[2023-08-10] MEDS: Thiamine HCL 100 MG TABLET PO (09:39)
[2023-08-10] MEDS: Enoxaparin Sodium 40 MG/0.4 ML SYRINGE SUBCUT (09:40)
[2023-08-10] MEDS: methylPREDNISolone Sod Succ 40 MG/ML VIAL IVPUSH (09:40)
[2023-08-10] MEDS: 0.9 % Sodium Chloride Flush 3 ML SYRINGE IVFLUSH (09:41)
--- NOTE | 2023-08-10 09:44 | MHC.CM.PN ---
Pt has been medically cleared for DC, he will go home via private transport, self care.
--- NOTE | 2023-08-10 12:20 | MHC.RECOVRN ---
Briefly met with pt in 473 prior to discharge after consult placed to Addiction Medicine for alcohol use. Pt had presented to the ED reporting SOB, cough, and hx COPD. Pt had audible wheezing and increased WOB. Upon evaluation, pt admitted due to COPD exacerbation as well as acute hyponatremia. Pt awake, alert, easily engages in conversation, dressed and waiting on discharge paperwork when t/w enters room. Pt reports drinking 6-8 beers daily x years. Pt denies hx treatment for AUD, denies desire to reduce or abstain from alcohol use. Pt states I don't think 6 to 8 is that bad, I know people who drink a lot more. Pt receptive to harm reduction education, however, declines written resources and further information on harm reduction. Pt polite, looking forward to discharge. Denies questions or concerns for t/w. Discussed with Magaly Urbano APRN.
== END 2023-08-10 11:07 | disposition home or self-care (01) | DRG 191 ==
LOC: HO.ED 07:17 → HO.EDOVER 08:26 → HO.IMC 18:34
PROVIDERS: Admitting Provider Physician Assistant; Emergency Provider Emergency Medicine Emergency Medical Services; PCP Nurse Practitioner Family; Visit Provider Family Medicine
DX: J44.1 Chronic obstructive pulmonary disease with (acute) exacerbation (principal); E87.1 Hypo-osmolality and hyponatremia; I50.32 Chronic diastolic (congestive) heart failure; E87.21 Acute metabolic acidosis; E66.9 Obesity, unspecified; F10.90 Alcohol use, unspecified, uncomplicated; I11.0 Hypertensive heart disease with heart failure; I25.10 Atherosclerotic heart disease of native coronary artery without angina pectoris; F17.210 Nicotine dependence, cigarettes, uncomplicated; Z20.822 Contact with and (suspected) exposure to COVID-19; Z68.32 Body mass index [BMI] 32.0-32.9, adult; Z71.6 Tobacco abuse counseling; Z79.51 Long term (current) use of inhaled steroids; Z79.82 Long term (current) use of aspirin; Z79.899 Other long term (current) drug therapy
CPT/HCPCS: 0241U; 36415; 71045; 80048; 80053; 80307; 81001; 82803; 83605; 83690; 83880; 83930; 83935; 84300; 84484; 85025; 85730; 87040; 87633; 93005; 94640; 99285; J0456; J0696; J1650; J2920; J2930

== ENCOUNTER → 2023-08-08 08:07 | Outpatient (BNV) | payer MEDICARE, MEDICAID, SELFPAY | PROVIDERS: Admitting Provider Physician Assistant; Emergency Provider Emergency Medicine Emergency Medical Services; PCP Nurse Practitioner Family; Visit Provider Physician Assistant | DX: J44.1 Chronic obstructive pulmonary disease with (acute) exacerbation (principal); E87.1 Hypo-osmolality and hyponatremia; F10.10 Alcohol abuse, uncomplicated; Z72.0 Tobacco use | CPT/HCPCS: 99223; 99232; 99239 ==

== ENCOUNTER 2023-11-03 04:25 | Emergency (ER) | payer MEDICARE, MEDICAID, SELFPAY ==
--- NOTE | 2023-11-03 | ECG_ITS ---
Test Reason : DYSPEA Blood Pressure : / mmHG Vent. Rate : 077 BPM Atrial Rate : 077 BPM P-R Int : 204 ms QRS Dur : 068 ms QT Int : 372 ms P-R-T Axes : 076 020 051 degrees QTc Int : 420 ms Normal sinus rhythm Normal ECG When compared with ECG of 08-AUG-2023 02:18, Premature ventricular complexes are no longer Present Referred By: Chace Caicedo Electronically Signed By:SHAILA COPELAND
--- NOTE | ~2023-11-03 | XR_ITS ---
EXAMINATION: XR CHEST CLINICAL INFORMATION: Shortness of breath. COMPARISON: 08/08/2023 TECHNIQUE: Frontal view of the chest was obtained. FINDINGS: Lungs are mildly hyperexpanded. Reticular opacities in both lungs likely correspond to underlying emphysema. No consolidation, pneumothorax, or pleural effusion. Cardiac and mediastinal contours are normal. Calcific atherosclerosis is present in the thoracic aorta. Degenerative disc disease is present in the thoracic spine. XR/XR chest 1V IMPRESSION: No acute pulmonary findings. Emphysema.
[2023-11-03 04:31] VITALS: BP 170/80; BP 179/77; PULSE 79; PULSE 80; RESP 18; TEMP 37.2; O2SAT 95; O2SAT 98; BMI 27.8
--- NOTE | 2023-11-03 04:40 | ED.SOB ---
HPI - SOB/Dyspnea General Chief Complaint: Dyspnea Stated Complaint: SOB Time Seen by Provider: 11/03/23 04:40 Source: patient Mode of arrival: EMS Limitations: no limitations History of Present Illness ED Provider: mary ann FREEDMAN Narrative: Patient is 68 years old smoker history of COPD not on oxygen hypertension coronary artery disease came for increased shortness breath since last evening got worse self drove to fire station for help use inhaler twice without much relief EMS gave him DuoNeb in Solu-Medrol no history of CO2 retention Related Data Home Medications ?Medication ?Instructions ?Recorded ?Confirmed aspirin 81 mg tablet,delayed 81 mg PO DAILY 08/26/20 08/08/23 release atorvastatin 20 mg tablet 20 mg PO DAILY 08/26/20 08/08/23 lisinopril 20 mg tablet 20 mg PO DAILY 08/26/20 08/08/23 metoprolol succinate 100 mg 100 mg PO DAILY 08/26/20 08/08/23 tablet,extended release 24 hr nitroglycerin 0.4 mg sublingual 0.4 mg sublingual Q5M PRN Chest 08/26/20 08/08/23 tablet Pain albuterol sulfate 90 mcg/actuation 2 puff inhalation QID PRN Wheezing 08/08/23 08/08/23 aerosol inhaler cyanocobalamin (vitamin B-12) 1,000 mcg PO DAILY 08/08/23 08/08/23 1,000 mcg tablet (Vitamin B-12) furosemide 20 mg tablet 20 mg PO DAILY 08/08/23 08/08/23 thiamine HCl (vitamin B1) 100 mg 100 mg PO DAILY 08/08/23 08/08/23 tablet (Vitamin B-1) Previous Rx's ?Medication ?Instructions ?Recorded azithromycin 250 mg tablet 250 mg PO DAILY 3 days #3 tabs 08/10/23 benzonatate 100 mg capsule 200 mg (2 x 100 mg) PO TID PRN 08/10/23 Cough #30 caps fluticasone furoate 100 1 inh inhalation DAILY #60 ea 08/10/23 mcg-vilanterol 25 mcg/dose inhalation powder (Breo Ellipta) nicotine 21 mg/24 hr daily 21 mg transdermal DAILY #30 ea 08/10/23 transdermal patch prednisone 20 mg tablet 40 mg (2 x 20 mg) PO DAILY #6 tabs 08/10/23 albuterol sulfate 2.5 mg/3 mL 2.5 mg (3 mL) inhalation Q4-6H PRN 11/03/23 (0.083 %) solution for nebulization shortness of breath or wheezing #90 mL albuterol sulfate 90 mcg/actuation 2 puff inhalation Q6H PRN 11/03/23 aerosol inhaler shortness of breath or wheezing #8.5 grams benzonatate 200 mg capsule 200 mg PO TID PRN cough #30 caps 11/03/23 cefpodoxime 200 mg tablet 200 mg PO BID #20 tabs 11/03/23 prednisone 20 mg tablet 40 mg (2 x 20 mg) PO DAILY #10 tabs 11/03/23 Allergies Allergy/AdvReac Type Severity Reaction Status Date / Time No Known Allergies Allergy Verified 11/03/23 04:38 [No Known Allergies*] oxycodone AdvReac Unknown does not Verified 11/03/23 04:38 want unless necessary Review of Systems Review of Systems: Yes all other systems are reviewed and are negative PMFSH Past Medical History Medical History Right lower lobe pneumonia COPD (chronic obstructive pulmonary disease) Other and unspecified hyperlipidemia Essential hypertension Atherosclerotic cardiovascular disease Surgical History History of cardiac catheterization (~09/16/14) Family History Family History Father Alzheimer disease Myocardial infarction CVD (cardiovascular disease) Mother Alzheimer disease HTN (hypertension) Social History Social History Household Members: None Housing: House Do you presently have visiting nurse or other home services: No Alcohol intake: current Alcohol intake frequency: 3 or more drinks per day Alcohol type: beer Comment: overflow Patient Tobacco Use Status: Current everyday Tobacco user Tobacco use type: Cigarette Cigarette Packs Per Day: 1 Cigarettes Per Day: 20.0 Smoked in Last 30 Days: No Second Hand Smoke Exposure: No Use of substances other than those prescribed or required for medical reasons: No Advance Directives: No Advance Directives Information Provided: Yes Do you have a plan to hurt others: No Plan Physical Exam Vital Signs: Vital Signs: Last Vital Signs Temp 98 F 11/03/23 07:16 Pulse 99 11/03/23 07:16 Resp 24 H 11/03/23 07:16 BP 160/70 H 11/03/23 07:16 Pulse Ox 95 11/03/23 07:16 O2 Del Method Room Air 11/03/23 07:16 BMI result Body Mass Index 27.8 Appearance: Alert. Oriented X3. No acute distress. Eyes: PERRLA, No Nystagmus ENT: Pharynx normal. Oral Mucosa moist Neck: Normal inspection. Neck supple. CVS: Normal heart rate and rhythm. Pulses normal. Respiratory: No respiratory distress. Equal air entry bilateral, + wheezing/rales/rhonchi Abdomen: Soft and nontender. Bowel sounds are present, no mass palpable, no CVA tenderness Skin: Skin warm and dry. Normal skin color. Normal skin turgor. Extremities: No lower extremity edema. No calf tenderness Neuro: Oriented X 3. No motor deficit. Medications Administered Discontinued Medications Generic Name Dose Route Start Last Admin Trade Name Freq PRN Reason Stop Dose Admin Albuterol Sulfate 7.5 mg/ 10 mg 11/03/23 05:04 11/03/23 05:08 Albuterol Sulfate 2.5 mg INHALE 11/03/23 05:05 10 mg ONCE ONE Administration Albuterol Sulfate 5 mg 11/03/23 05:52 11/03/23 06:10 Albuterol Sulfate (0.083%) 2.5 Mg/3 Ml Vial.Neb INHALE 11/03/23 05:53 5 mg ONCE ONE Administration Doxycycline Monohydrate 100 mg 11/03/23 05:52 11/03/23 07:01 Doxycycline Monohydrate 100 Mg Capsule PO 11/03/23 05:53 100 mg ONCE ONE Administration Guaifenesin/Codeine Phosphate 10 ml 11/03/23 05:52 11/03/23 07:02 Guaifen/Codeine Sf 200/20/10ml 10 Ml Liquid PO 11/03/23 05:53 10 ml ONCE ONE Administration Medical Decision Making Medical Decision Making [facility] Narrative: Patient feeling much better after nebulizing treatment saturating 96% on room air discharge patient home steroids antibiotics and cough drops Differential Diagnosis Differential Diagnoses: The differential diagnosis associated with the presentation includes Lab Data [facility] Lab Attestation statement: I reviewed the patient's lab results. 11/03/23 04:41 11/03/23 04:57 Labs: Lab Results 11/03/23 11/03/23 Range/Units 04:41 04:57 WBC 12.3 H (4.8-10.8) X10*3/uL RBC 4.39 L (4.60-5.80) X10*6/uL Hgb 14.8 (14.0-18.0) g/dl Hct 40.1 L (42.0-52.0) % MCV 91.3 (80.0-98.0) fL MCH 33.7 H (27.0-33.0) pg MCHC 36.9 H (31.0-36.0) g/dl RDW 12.9 (11.0-16.0) % Plt Count 235 (160-400) X10*3/uL MPV 8.6 L (9.4-12.4) fL Immature Gran % (Auto) 0.4 (0.0-0.4) % Neut % (Auto) 56.5 (45-73) % Lymph % (Auto) 23.2 (20-40) % Grant % (Auto) 7.9 (2-11) % Eos % (Auto) 11.0 H (0-4) % Baso % (Auto) 1.0 (0-2) % Lymph # (Auto) 2.9 (1.2-4.9) X10*3/uL Grant # (Auto) 1.0 (0.1-1.2) X10*3/uL Eos # (Auto) 1.4 H (0.0-0.4) X10*3/uL Baso # (Auto) 0.1 (0.0-0.2) X10*3/uL Abs Immat Gran (auto) 0.05 H (0.00-0.03) X10*3/uL Absolute Neuts (auto) 7.0 (2.0-8.3) x10*3/uL Absolute Nucleated RBC 0.000 (0.0-0.012) X10*3/uL Nucleated RBC % (auto) 0.0 (0.0-0.2) /100WBC VBG pH 7.40 (7.32-7.43) VBG pCO2 40 mmHg VBG pO2 45 mmHg VBG HCO3 25 (22-26) mmol/L VBG O2 Saturation 71.0 % VBG Base Excess 0.6 mmol/L Sodium 126 L (135-145) mmol/L Potassium 4.4 (3.3-5.1) mmol/L Chloride 95 L (96-108) mmol/L Carbon Dioxide 20 L (22-29) mmol/L Anion Gap 15 (12-20) BUN 3 L (9-16) mg/dL Creatinine 0.64 (0.5-1.4) mg/dL Estim Creat Clear Calc 124.6 Estimated GFR > 60 Random Glucose 103 (60-115) mg/dL Calcium 9.2 (8.4-10.2) mg/dL Magnesium 2.0 (1.6-2.6) mg/dL Total Bilirubin 0.6 (0.0-1.0) mg/dL AST 56 H (5-37) U/L ALT 41 H (0-40) U/L Alkaline Phosphatase 86 (39-117) U/L Troponin I High Sens < 2.7 (<3.5-35.0) ng/L B-Natriuretic Peptide 95 (<100) pg/mL Total Protein 6.8 (6.5-8.0) g/dL Albumin 3.9 (3.5-5.0) g/dL COVID-19 (LISA) Negative (Negative) COVID-19 Clin Com See Note Independent Interpretation I performed an independent interpretation of an: Plain X-Ray Discharge Plan Discharge Clinical Impression: COPD exacerbation Patient Disposition: Home, Self-Care Instructions: COPD (Chronic Obstructive Pulmonary Disease) (DC), Chronic Bronchitis (ED) Prescriptions: New cefpodoxime 200 mg tablet 200 mg PO BID Qty: 20 0RF Rx Instructions: must administer with a meal/food benzonatate 200 mg capsule 200 mg PO TID PRN (Reason: cough) Qty: 30 0RF prednisone 20 mg tablet 40 mg PO DAILY Qty: 10 0RF albuterol sulfate 2.5 mg /3 mL (0.083 %) solution for nebulization 2.5 mg inhalation Q4-6H PRN (Reason: shortness of breath or wheezing) Qty: 90 0RF albuterol sulfate 90 mcg/actuation HFA aerosol inhaler 2 puff inhalation Q6H PRN (Reason: shortness of breath or wheezing) Qty: 8.5 0RF No Action furosemide 20 mg tablet 20 mg PO DAILY albuterol sulfate 90 mcg/actuation HFA aerosol inhaler 2 puff inhalation QID PRN (Reason: Wheezing) cyanocobalamin (vitamin B-12) [Vitamin B-12] 1,000 mcg Tablet 1,000 mcg PO DAILY thiamine HCl (vitamin B1) [Vitamin B-1] 100 mg Tablet 100 mg PO DAILY benzonatate 100 mg Capsule 200 mg PO TID PRN (Reason: Cough) Qty: 30 0RF nicotine 21 mg/24 hr Patch 24 Hour 21 mg transdermal DAILY Qty: 30 0RF azithromycin 250 mg tablet 250 mg PO DAILY 3 Days Qty: 3 0RF Rx Instructions: start on day 2 of therapy prednisone 20 mg tablet 40 mg PO DAILY Qty: 6 0RF fluticasone furoate-vilanterol [Breo Ellipta] 100-25 mcg/dose blister with device 1 inh inhalation DAILY Qty: 60 0RF aspirin 81 mg tablet,delayed release (DR/EC) 81 mg PO DAILY metoprolol succinate 100 mg tablet extended release 24 hr 100 mg PO DAILY lisinopril 20 mg tablet 20 mg PO DAILY atorvastatin 20 mg tablet 20 mg PO DAILY nitroglycerin 0.4 mg tablet, sublingual 0.4 mg sublingual Q5M PRN (Reason: Chest Pain) Rx Instructions: do not exceed 3 doses per episode Interventions: ED Discharge Assessment Last Done: 11/03/23 07:16 Discharge Date/Time: 11/03/23 07:17 Print Language: Tongan
[2023-11-03 04:45] LABS: MANUAL DIFF FLAG NO
[2023-11-03 04:46] VITALS: BP 179/77; PULSE 78; RESP 22; TEMP 36.8; O2SAT 96
[2023-11-03 04:46] LABS: Basophils Absolute Auto 0.1 X10*3/uL (0.0-0.2); Eosinophils Absolute Auto 1.4 X10*3/uL (0.0-0.4); Hematocrit 40.1 % (42.0-52.0); Hemoglobin 14.8 g/dl (14.0-18.0); Imm Gran Abs Auto 0.05 X10*3/uL (0.00-0.03); Imm Gran Pct Auto 0.4 % (0.0-0.4); Lymphocytes Absolute Auto 2.9 X10*3/uL (1.2-4.9); Lymphocytes Percent Auto 23.2 % (20-40); Mean Corpuscular HGB Conc 36.9 g/dl (31.0-36.0); Mean Corpuscular Hemoglobin 33.7 pg (27.0-33.0); Mean Corpuscular Volume 91.3 fL (80.0-98.0); Mean Platelet Volume 8.6 fL (9.4-12.4); Monocytes Percent Auto 7.9 % (2-11); Neutrophils Percent Auto 56.5 % (45-73); Platelet Count 235 X10*3/uL (160-400); Red Blood Count 4.39 X10*6/uL (4.60-5.80); Red Cell Distribution Width 12.9 % (11.0-16.0); White Blood Count 12.3 X10*3/uL (4.8-10.8)
[2023-11-03 04:47] LABS: Venous Blood Gas Refer to POC result
[2023-11-03 04:50] LABS: VBG Base Excess 0.6 mmol/L; VBG HCO3 25 mmol/L (22-26); VBG pCO2 40 mmHg; VBG pO2 45 mmHg
--- NOTE | 2023-11-03 04:55 | PC.NURSE ---
pt biba from home, a&ox4, respirations even and unlabored. pt reporting onset of shortness of breath that began early this evening, reports inability to sleep in which he drove himself to the fire station to get help. pt reports using albuterol x2 without relief. ems gave pt 1 duoneb and a dose of IM solumedrol. respiratory called to bedside, pt saying 98% on room air, pt given duoneb. 20G placed in right forearm, labs obtained and sent. pt normal sinus on tele [id number].
[2023-11-03 05:06] VITALS: PULSE 85; RESP 22; O2SAT 95
[2023-11-03] MEDS: Albuterol Sulfate 7.5 MG, Albuterol Sulfate (0.083%) 2.5 MG 10 MG INHALE (05:08)
[2023-11-03 05:10] LABS: B Type Natriuretic Peptide 95 pg/mL (<100)
[2023-11-03 05:11] LABS: Troponin-I High Sensitivity < 2.7 ng/L (<3.5-35.0)
[2023-11-03 05:16] LABS: COVID-19 Test Negative (Negative); IDNOW Serial# 08D9AD1C
[2023-11-03 05:18] LABS: Alanine Aminotransferase 41 U/L (0-40); Albumin Level 3.9 g/dL (3.5-5.0); Alkaline Phosphatase 86 U/L (39-117); Anion Gap 15 (12-20); Aspartate Amino Transferase 56 U/L (5-37); Bilirubin Total 0.6 mg/dL (0.0-1.0); Blood Urea Nitrogen 3 mg/dL (9-16); Calcium 9.2 mg/dL (8.4-10.2); Carbon Dioxide 20 mmol/L (22-29); Chloride 95 mmol/L (96-108); Creatinine Clr Calc Pharmacy 124.6; Estimated Glomerular Filt Rate > 60; Glucose Random 103 mg/dL (60-115); Potassium 4.4 mmol/L (3.3-5.1); Sodium 126 mmol/L (135-145); Total Protein 6.8 g/dL (6.5-8.0)
[2023-11-03 06:10] VITALS: PULSE 83; RESP 18; O2SAT 95
[2023-11-03] MEDS: Albuterol Sulfate (0.083%) 2.5 MG/3 ML VIAL.NEB 5 MG INHALE (06:10)
[2023-11-03] MEDS: Doxycycline Monohydrate 100 MG CAPSULE PO (07:01)
[2023-11-03 07:02] VITALS: BP 160/70; PULSE 99; RESP 24; TEMP 36.6; O2SAT 95
[2023-11-03] MEDS: guaiFEN/Codeine SF 200/20/10ML 10 ML LIQUID PO (07:02)
[2023-11-03 07:16] VITALS: BP 160/70; PULSE 99; RESP 24; TEMP 36.6; O2SAT 95
== END 2023-11-03 07:17 | disposition home or self-care (01) ==
PROVIDERS: Emergency Provider Internal Medicine
DX: J44.1 Chronic obstructive pulmonary disease with (acute) exacerbation (principal); R06.02 Shortness of breath; I10 Essential (primary) hypertension; E78.5 Hyperlipidemia, unspecified; F17.210 Nicotine dependence, cigarettes, uncomplicated; Z79.82 Long term (current) use of aspirin; Z79.899 Other long term (current) drug therapy; Z79.02 Long term (current) use of antithrombotics/antiplatelets; Z11.52 Encounter for screening for COVID-19
CPT/HCPCS: 36415; 71045; 80053; 82803; 83735; 83880; 84484; 85025; 87635; 93005; 94640; 99284; 99285

== ENCOUNTER → 2023-11-03 04:41 | Outpatient (BNV) | payer MEDICARE, MEDICAID, SELFPAY | PROVIDERS: Emergency Provider Internal Medicine; Visit Provider Internal Medicine | DX: R06.00 Dyspnea, unspecified (principal) | CPT/HCPCS: 93010 ==

== ENCOUNTER 2023-11-14 20:35 | Observation (INO) | payer MEDICARE, MEDICAID, SELFPAY ==
--- NOTE | ~2023-11-14 | XR_ITS ---
EXAMINATION: PORTABLE CHEST 1 VIEW CLINICAL INFORMATION: SOB. COMPARISON: . TECHNIQUE: Portable frontal view of the chest was obtained. FINDINGS: The lungs are mildly hypoexpanded with chronic appearing coarsened reticular markings similar to the prior study. No focal infiltrate, effusion, edema, or pneumothorax. Cardiac and mediastinal silhouettes are within normal limits for size with vascular calcification in aorta. No acute bony abnormality seen. XR/XR chest 1V IMPRESSION: Chronic appearing changes similar to the prior study. No acute superimposed process.
[2023-11-14 20:37] VITALS: BP 170/93; PULSE 73; RESP 28; TEMP 36.4; O2SAT 95; BMI 30.4
--- NOTE | 2023-11-14 20:41 | ED_ITS ---
HPI - SOB/Dyspnea General Chief Complaint: Dyspnea Stated Complaint: diff breathing Time Seen by Provider: 11/14/23 21:07 Source: patient Mode of arrival: ambulatory Limitations: no limitations History of Present Illness ED Provider: Dr. Kaelyn Field HPI Narrative: Patient comes to the emergency room complaining of worsening shortness of breath. Patient was evaluated a week and a half ago for COPD in the emergency room. Patient was sent home with antibiotics, cefpodoxime and prednisone. Patient states that initially he was doing well, just about a week ago when he ran out of his course of prednisone, the shortness of breath started getting much worse. Patient states that today he had several nebulization treatments without really help him him to breathe better. Patient states that he has no chest pain but his breathing feels very tight. Related Data Home Medications ?Medication ?Instructions ?Recorded ?Confirmed aspirin 81 mg tablet,delayed 81 mg PO DAILY 08/26/20 08/08/23 release atorvastatin 20 mg tablet 20 mg PO DAILY 08/26/20 08/08/23 lisinopril 20 mg tablet 20 mg PO DAILY 08/26/20 08/08/23 metoprolol succinate 100 mg 100 mg PO DAILY 08/26/20 08/08/23 tablet,extended release 24 hr nitroglycerin 0.4 mg sublingual 0.4 mg sublingual Q5M PRN Chest 08/26/20 08/08/23 tablet Pain albuterol sulfate 90 mcg/actuation 2 puff inhalation QID PRN Wheezing 08/08/23 08/08/23 aerosol inhaler cyanocobalamin (vitamin B-12) 1,000 mcg PO DAILY 08/08/23 08/08/23 1,000 mcg tablet (Vitamin B-12) furosemide 20 mg tablet 20 mg PO DAILY 08/08/23 08/08/23 thiamine HCl (vitamin B1) 100 mg 100 mg PO DAILY 08/08/23 08/08/23 tablet (Vitamin B-1) Previous Rx's ?Medication ?Instructions ?Recorded azithromycin 250 mg tablet 250 mg PO DAILY 3 days #3 tabs 08/10/23 benzonatate 100 mg capsule 200 mg (2 x 100 mg) PO TID PRN 08/10/23 Cough #30 caps fluticasone furoate 100 1 inh inhalation DAILY #60 ea 08/10/23 mcg-vilanterol 25 mcg/dose inhalation powder (Breo Ellipta) nicotine 21 mg/24 hr daily 21 mg transdermal DAILY #30 ea 08/10/23 transdermal patch prednisone 20 mg tablet 40 mg (2 x 20 mg) PO DAILY #6 tabs 08/10/23 albuterol sulfate 2.5 mg/3 mL 2.5 mg (3 mL) inhalation Q4-6H PRN 11/03/23 (0.083 %) solution for nebulization shortness of breath or wheezing #90 mL albuterol sulfate 90 mcg/actuation 2 puff inhalation Q6H PRN 11/03/23 aerosol inhaler shortness of breath or wheezing #8.5 grams benzonatate 200 mg capsule 200 mg PO TID PRN cough #30 caps 11/03/23 cefpodoxime 200 mg tablet 200 mg PO BID #20 tabs 11/03/23 prednisone 20 mg tablet 40 mg (2 x 20 mg) PO DAILY #10 tabs 11/03/23 albuterol sulfate 90 mcg/actuation 2 puff inhalation Q4-6H PRN 11/05/23 aerosol inhaler shortness of breath #6.7 grams nebulizers (Aeroneb Go Nebulizer) #1 ea 11/05/23 Allergies Allergy/AdvReac Type Severity Reaction Status Date / Time oxycodone AdvReac Unknown does not Verified 11/14/23 20:40 want unless necessary Review of Systems 2 Review of Systems: Constitutional : No Weight loss, No Fever, No Chills, No Night Sweats, No Fatigue, No Malaise ENT/Mouth : No Hearing loss, No Ear Pain, No Nasal Congestion, No Sinus Pain, No Hoarseness, No sore throat, No Rhinorrhea, No Swallowing Difficulty Eyes: No Eye Pain, No Swelling, No Redness, No Foreign Body, No Discharge, No Vision Changes Cardiovascular : No Chest Pain, no orthopnea no lower extremity edema or palpitations Respiratory : Complaining of cough, wheezing, tight breathing, dyspnea at rest and on exertion Gastrointestinal : No Nausea, No Vomiting, No Diarrhea, No Constipation, No abdominal Pain, No Hematochezia, No Melena Genitourinary : no irregular bleeding, No Dysuria, No Urinary Frequency, No Hematuria, No Urinary Incontinence, No Urgency, No Flank Pain, No Urinary Flow Changes, No Hesitancy Musculoskeletal : No joint pain, No Myalgias, No Joint Swelling Skin : No Skin Lesions, No rash Neuro : No Weakness, No Numbness, No Paresthesias, No Loss of Consciousness, No Dizziness, No Headache Psych : No Anxiety/Panic, No Depression, No SI/HI/AH/VH, No Social Issues, Heme/Lymph: No Bruising, No Bleeding,No Lymphadenopathy Endocrine : No Polyuria, No Polydipsia, No Temperature Intolerance [facility] Past Medical History Medical History Right lower lobe pneumonia COPD (chronic obstructive pulmonary disease) Other and unspecified hyperlipidemia Essential hypertension Atherosclerotic cardiovascular disease Surgical History History of cardiac catheterization (~09/16/14) Family History Family History Father Alzheimer disease Myocardial infarction CVD (cardiovascular disease) Mother Alzheimer disease HTN (hypertension) Social History Social History Household Members: None Housing: House Do you presently have visiting nurse or other home services: No Alcohol intake: current Alcohol intake frequency: 3 or more drinks per day Alcohol type: beer Comment: overflow Patient Tobacco Use Status: Current everyday Tobacco user Tobacco use type: Cigarette Cigarette Packs Per Day: 1 Cigarettes Per Day: 20.0 Smoked in Last 30 Days: Yes Second Hand Smoke Exposure: No Use of substances other than those prescribed or required for medical reasons: No Advance Directives: No Advance Directives Information Provided: No Do you have a plan to hurt others: No Plan Physical Exam 2 Vital Signs: Vital Signs: Last Vital Signs Temp 98.4 F 11/14/23 21:53 Pulse 72 11/14/23 21:53 Resp 17 11/14/23 21:53 BP 161/56 H 11/14/23 21:53 Pulse Ox 94 11/14/23 21:53 O2 Del Method Room Air 11/14/23 21:53 BMI result Body Mass Index 30.4 Const: Other: Appearance: Alert. Oriented X3. Still be uncomfortable breathing, Eyes: Pupils equal, round and reactive to light. ENT: Pharynx normal. Neck: Normal inspection. Neck supple. No lymph nodes noted. No crepitus CVS: Normal heart rate and rhythm. Pulses normal. Normal S1 and S2 Respiratory: Patient tachypneic, respiratory rate approximately 25-30, mild bilateral wheezing, tight air movement Abdomen: Soft and nontender. No rigidity. No distention. Skin: Skin warm and dry. Normal skin color. Normal skin turgor. Extremities: No lower extremity edema. No Lacerations. No Rash Neuro: Oriented X 3. No motor deficit. No sensory deficit. Moving all extremities. No slurred speech. CN 2 through 12 grossly intact Psych: calm, cooperative, normal affect Course Course Course Narrative: This is an RME: Additional HPI, ROS, PE not included below will be deferred to primary provider. RME assessment and note performed by: Angélica Mosqueda PA-C This is a 68-year-old male who presents emergency department with complaints of acute onset shortness of breath. Patient was seen here on November 03, 2023 and was prescribed cefpodoxime, Tessalon, prednisone, and albuterol. Patient states that his shortness for breath worsened after completing his course of prednisone. He states that today it was much worse. No chest pain. Patient with inspiratory and expiratory wheezes throughout, diminished lung mohan throughout, for air movement throughout all lung mohan. Oxygen saturation 95% on room air, blood pressure elevated at 170/93. He is tachypneic. Plan: Labs, EKG, ED brown protocol, further ER evaluation needed. Medications Administered Generic Name Dose Route Start Last Admin Trade Name Freq PRN Reason Stop Dose Admin Magnesium Sulfate 2 gm in 50 mls @ 25 mls/hr 11/14/23 21:12 11/14/23 22:31 Magnesium Sulfate/H2o IV 11/14/23 23:11 25 mls/hr ONCE ONE Administration Azithromycin 500 mg/ Sodium 250 mls @ 125 mls/hr 11/14/23 21:14 11/14/23 22:56 Chloride IV 11/14/23 23:13 125 mls/hr ONCE ONE Administration Discontinued Medications Generic Name Dose Route Start Last Admin Trade Name Freq PRN Reason Stop Dose Admin Albuterol Sulfate 7.5 mg/ 10 mg 11/14/23 20:49 11/14/23 20:52 Albuterol Sulfate 2.5 mg INHALE 11/14/23 20:50 10 mg ONCE ONE Administration Sodium Chloride 1,000 mls @ 999 mls/hr 11/14/23 21:14 11/14/23 22:41 Ns IVCONT 11/14/23 22:14 999 mls/hr .Q1H1M ONE Administration Ceftriaxone Sodium 1 gm/ 50 mls @ 100 mls/hr 11/14/23 21:14 11/14/23 22:56 Sodium Chloride IV 11/14/23 21:43 Infused ONCE ONE Infusion Methylprednisolone Sodium Succinate 125 mg 11/14/23 21:12 11/14/23 22:30 Methylprednisolone Sod Succ 125 Mg/2 Ml Vial IVPUSH 11/14/23 21:13 125 mg ONCE ONE Administration Medical Decision Making Medical Decision Making [facility] Narrative: -my interpretation of labs: White blood cell count 13.6, secondary to room prednisone.. PCO2 within normal limits, sodium 128 which is chronic for the patient. Troponin and BNP negative, serology negative for influenza RSV and COVID -my interpretation of chest x-ray, no obvious infiltrates. -despite multiple nebulization treatments, Solu-Medrol, magnesium, patient continues to feel ?very lousy , patient is still feeling tight with no chest pain. -I discussed the patient with Dr. Breen, patient being admitted. Differential Diagnosis Differential Diagnoses: The differential diagnosis associated with the presentation includes (Chronic lung disease, pneumonia, COVID) Admission/Observation Consideration of admission/observation: Escalation of care including admission/observation considered Consult Healthcare Provider Management of the patient was discussed with: Hospitalist Lab Data [facility] Lab Attestation statement: I reviewed the patient's lab results. 11/14/23 21:06 11/14/23 21:06 Labs: Lab Results 11/14/23 11/14/23 Range/Units 21:06 21:36 WBC 13.6 H (4.8-10.8) X10*3/uL RBC 4.31 L (4.60-5.80) X10*6/uL Hgb 14.7 (14.0-18.0) g/dl Hct 40.8 L (42.0-52.0) % MCV 94.7 (80.0-98.0) fL MCH 34.1 H (27.0-33.0) pg MCHC 36.0 (31.0-36.0) g/dl RDW 12.9 (11.0-16.0) % Plt Count 256 (160-400) X10*3/uL MPV 9.6 (9.4-12.4) fL Immature Gran % (Auto) 0.8 H (0.0-0.4) % Neut % (Auto) 49.1 (45-73) % Lymph % (Auto) 23.3 (20-40) % [place] % (Auto) 9.4 (2-11) % Eos % (Auto) 16.6 H (0-4) % Baso % (Auto) 0.8 (0-2) % Lymph # (Auto) 3.2 (1.2-4.9) X10*3/uL [place] # (Auto) 1.3 H (0.1-1.2) X10*3/uL Eos # (Auto) 2.3 H (0.0-0.4) X10*3/uL Baso # (Auto) 0.1 (0.0-0.2) X10*3/uL Abs Immat Gran (auto) 0.11 H (0.00-0.03) X10*3/uL Absolute Neuts (auto) 6.7 (2.0-8.3) x10*3/uL Absolute Nucleated RBC 0.000 (0.0-0.012) X10*3/uL Nucleated RBC % (auto) 0.0 (0.0-0.2) /100WBC Smear Tech's Comments VERIFIED VBG pH 7.42 (7.32-7.43) VBG pCO2 36 mmHg VBG pO2 44 mmHg VBG HCO3 24 (22-26) mmol/L VBG O2 Saturation 74.0 % VBG Base Excess 0.2 mmol/L Sodium 128 L (135-145) mmol/L Potassium 3.9 (3.3-5.1) mmol/L Chloride 96 (96-108) mmol/L Carbon Dioxide 21 L (22-29) mmol/L Anion Gap 15 (12-20) BUN 4 L (9-16) mg/dL Creatinine 0.64 (0.5-1.4) mg/dL Estim Creat Clear Calc 124.1 Estimated GFR > 60 Random Glucose 102 (60-115) mg/dL Calcium 9.6 (8.4-10.2) mg/dL Magnesium 2.0 (1.6-2.6) mg/dL Total Bilirubin 0.7 (0.0-1.0) mg/dL Direct Bilirubin 0.3 (0.0-0.5) mg/dL AST 42 H (5-37) U/L ALT 39 (0-40) U/L Alkaline Phosphatase 93 (39-117) U/L Troponin I High Sens < 2.7 (<3.5-35.0) ng/L B-Natriuretic Peptide 24 (<100) pg/mL Total Protein 6.8 (6.5-8.0) g/dL Albumin 4.1 (3.5-5.0) g/dL Influenza Type A (PCR) NEGATIVE (Negative) Influenza Type B (PCR) NEGATIVE (Negative) RSV RNA Qual (PCR) NEGATIVE (Negative) SARS-CoV-2 RNA (RT-PCR) NEGATIVE (Negative) Independent Interpretation I performed an independent interpretation of an: Ultrasound Radiology Impression Discussion of test interpretation with radiology: I have reviewed the radiologist's reading. Radiologist Impression: The lungs are mildly hypoexpanded with chronic appearing coarsened reticular markings similar to the prior study. No focal infiltrate, effusion, edema, or pneumothorax. Cardiac and mediastinal silhouettes are within normal limits for size with vascular calcification in aorta. No acute bony abnormality seen. XR/XR chest 1V IMPRESSION: Chronic appearing changes similar to the prior study. No acute superimposed process. Critical Care Time Critical Care Time Critical Care Time: Yes Total Critical Care Time: 60 Attestation: I have personally provided critical care time. Time includes review of lab data, radiology results, discussion with consultants, and monitoring for potential decompensation. Intervention performed as documented. Discharge Plan Discharge Clinical Impression: Chronic lung disease Patient Disposition: Admitted As Inpatient Prescriptions: No Action furosemide 20 mg tablet 20 mg PO DAILY albuterol sulfate 90 mcg/actuation HFA aerosol inhaler 2 puff inhalation QID PRN (Reason: Wheezing) cyanocobalamin (vitamin B-12) [Vitamin B-12] 1,000 mcg Tablet 1,000 mcg PO DAILY thiamine HCl (vitamin B1) [Vitamin B-1] 100 mg Tablet 100 mg PO DAILY benzonatate 100 mg Capsule 200 mg PO TID PRN (Reason: Cough) Qty: 30 0RF nicotine 21 mg/24 hr Patch 24 Hour 21 mg transdermal DAILY Qty: 30 0RF azithromycin 250 mg tablet 250 mg PO DAILY 3 Days Qty: 3 0RF Rx Instructions: start on day 2 of therapy prednisone 20 mg tablet 40 mg PO DAILY Qty: 6 0RF fluticasone furoate-vilanterol [Breo Ellipta] 100-25 mcg/dose blister with device 1 inh inhalation DAILY Qty: 60 0RF cefpodoxime 200 mg tablet 200 mg PO BID Qty: 20 0RF Rx Instructions: must administer with a meal/food benzonatate 200 mg capsule 200 mg PO TID PRN (Reason: cough) Qty: 30 0RF prednisone 20 mg tablet 40 mg PO DAILY Qty: 10 0RF albuterol sulfate 2.5 mg /3 mL (0.083 %) solution for nebulization 2.5 mg inhalation Q4-6H PRN (Reason: shortness of breath or wheezing) Qty: 90 0RF albuterol sulfate 90 mcg/actuation HFA aerosol inhaler 2 puff inhalation Q6H PRN (Reason: shortness of breath or wheezing) Qty: 8.5 0RF (DME) nebulizers [Aeroneb Go Nebulizer] Misc See Rx Instructions .Route Qty: 1 0RF Rx Instructions: As directed albuterol sulfate 90 mcg/actuation HFA aerosol inhaler 2 puff inhalation Q4-6H PRN (Reason: shortness of breath) Qty: 6.7 0RF aspirin 81 mg tablet,delayed release (DR/EC) 81 mg PO DAILY metoprolol succinate 100 mg tablet extended release 24 hr 100 mg PO DAILY lisinopril 20 mg tablet 20 mg PO DAILY atorvastatin 20 mg tablet 20 mg PO DAILY nitroglycerin 0.4 mg tablet, sublingual 0.4 mg sublingual Q5M PRN (Reason: Chest Pain) Rx Instructions: do not exceed 3 doses per episode Print Language: Jordanian
--- NOTE | 2023-11-14 20:44 | ECG_ITS ---
Test Reason : DYSPNEA Blood Pressure : / mmHG Vent. Rate : 077 BPM Atrial Rate : 000 BPM P-R Int : 000 ms QRS Dur : 068 ms QT Int : 392 ms P-R-T Axes : 000 035 057 degrees QTc Int : 443 ms Poor data quality Normal sinus rhythm Normal ECG When compared with ECG of 03-NOV-2023 04:41, No significant changes seen Referred By: Angélica Mosqueda Electronically Signed By:CEM HUTCHINSON MD
[2023-11-14 20:48] VITALS: BP 162/64; PULSE 71; RESP 18; TEMP 36.8; O2SAT 96
[2023-11-14 20:50] VITALS: PULSE 71; RESP 22; O2SAT 95
[2023-11-14] MEDS: Albuterol Sulfate 7.5 MG, Albuterol Sulfate (0.083%) 2.5 MG 10 MG INHALE (20:52)
[2023-11-14 21:17] LABS: Basophils Absolute Auto 0.1 X10*3/uL (0.0-0.2); Basophils Percent Auto 0.8 % (0-2); Eosinophils Absolute Auto 2.3 X10*3/uL (0.0-0.4); Eosinophils Percent Auto 16.6 % (0-4); Hematocrit 40.8 % (42.0-52.0); Hemoglobin 14.7 g/dl (14.0-18.0); Imm Gran Abs Auto 0.11 X10*3/uL (0.00-0.03); Imm Gran Pct Auto 0.8 % (0.0-0.4); Lymphocytes Absolute Auto 3.2 X10*3/uL (1.2-4.9); Lymphocytes Percent Auto 23.3 % (20-40); MANUAL DIFF FLAG SCAN; Mean Corpuscular Hemoglobin 34.1 pg (27.0-33.0); Mean Corpuscular Volume 94.7 fL (80.0-98.0); Mean Platelet Volume 9.6 fL (9.4-12.4); Monocytes Absolute Auto 1.3 X10*3/uL (0.1-1.2); Monocytes Percent Auto 9.4 % (2-11); Neutrophils Absolute Auto 6.7 x10*3/uL (2.0-8.3); Neutrophils Percent Auto 49.1 % (45-73); PLT CLUMP 1; Red Blood Count 4.31 X10*6/uL (4.60-5.80); Red Cell Distribution Width 12.9 % (11.0-16.0); SCAN SMEAR FLAG 1
[2023-11-14 21:28] LABS: Alanine Aminotransferase 39 U/L (0-40); Albumin Level 4.1 g/dL (3.5-5.0); Alkaline Phosphatase 93 U/L (39-117); Anion Gap 15 (12-20); Aspartate Amino Transferase 42 U/L (5-37); Bilirubin Direct 0.3 mg/dL (0.0-0.5); Bilirubin Total 0.7 mg/dL (0.0-1.0); Blood Urea Nitrogen 4 mg/dL (9-16); Calcium 9.6 mg/dL (8.4-10.2); Carbon Dioxide 21 mmol/L (22-29); Chloride 96 mmol/L (96-108); Creatinine Clr Calc Pharmacy 124.1; Estimated Glomerular Filt Rate > 60; Glucose Random 102 mg/dL (60-115); Potassium 3.9 mmol/L (3.3-5.1); Sodium 128 mmol/L (135-145); Total Protein 6.8 g/dL (6.5-8.0)
[2023-11-14 21:33] LABS: B Type Natriuretic Peptide 24 pg/mL (<100)
[2023-11-14 21:38] LABS: Troponin-I High Sensitivity < 2.7 ng/L (<3.5-35.0)
[2023-11-14 21:45] LABS: White Blood Count 13.6 X10*3/uL (4.8-10.8)
[2023-11-14 21:45] LABS: VBG Base Excess 0.2 mmol/L; VBG HCO3 24 mmol/L (22-26); VBG pCO2 36 mmHg; VBG pH 7.42 (7.32-7.43); VBG pO2 44 mmHg
[2023-11-14 21:46] LABS: Platelet Count 256 X10*3/uL (160-400); SLIDE REVIEW VERIFIED
[2023-11-14 21:51] LABS: Venous Blood Gas Refer to POC result
[2023-11-14 21:53] VITALS: BP 161/56; PULSE 72; RESP 17; TEMP 36.9; O2SAT 94
[2023-11-14 21:55] LABS: Influenza A PCR NEGATIVE (Negative); Influenza B PCR NEGATIVE (Negative); Resp Syncy Virus RNA Qual PCR NEGATIVE (Negative); SARS COV2 PCR INHOUSE NEGATIVE (Negative)
[2023-11-14] MEDS: methylPREDNISolone Sod Succ 125 MG/2 ML VIAL IVPUSH (22:30)
[2023-11-14] MEDS: Magnesium Sulfate/H2O 2 GM/50 ML PIGGYBACK IV (22:31)
[2023-11-14] MEDS: cefTRIAXone sodium 1 GM in 0.9 % Sodium Chloride 50 ML IV (22:37)
[2023-11-14] MEDS: 0.9 % Sodium Chloride 1,000 ML 999 ML IVCONT (22:41)
[2023-11-14] MEDS: Azithromycin 500 MG in 0.9 % Sodium Chloride 250 ML 125 MG IV (22:56)
--- NOTE | 2023-11-14 23:12 | PM.IMHP ---
History of Present Illness Date of Service: 11/14/23 Chief Complaint: Dyspnea This is a 68-year-old male with pertinent history of COPD not on home oxygen, former tobacco use disorder, hypertension, mixed hyperlipidemia, coronary artery disease, congestive heart failure with preserved ejection fraction presents to the emergency department for evaluation of dyspnea. Patient was seen in the ER on 11/02 and discharged home with p.o. prednisone for COPD exacerbation. Patient states he felt better slightly but felt worse once he completed his steroid course. He continues to be short of breath with exertion. Also has been having cough with clear sputum production and wheezing. Has tried home inhaler and home nebulization without any relief. No fever, chills, chest discomfort, palpitations, abdominal pain, changes in urinary or bowel habits. In the emergency department, patient with wheezing despite multiple DuoNeb treatments. Review of Systems Constitutional: Constitutional: Reports no additional constitutional complaints Cardiovascular: Cardiovascular: Reports dyspnea on exertion Respiratory: Respiratory: Reports cough, Reports dyspnea on exertion and Reports wheezing Gastrointestinal: Gastrointestinal: Reports no additional gastrointestinal complaints Genitourinary: Genitourinary: Reports no additional male genitourinary complaints Allergic/Immunologic: Allergic/Immunologic: Reports wheezing [facility] Medical History Right lower lobe pneumonia COPD (chronic obstructive pulmonary disease) Other and unspecified hyperlipidemia Essential hypertension Atherosclerotic cardiovascular disease Family History Father Alzheimer disease Myocardial infarction CVD (cardiovascular disease) Mother Alzheimer disease HTN (hypertension) Surgical History History of cardiac catheterization (~09/16/14) Social History Household Members: None Housing: House Do you presently have visiting nurse or other home services: No Alcohol intake: current Alcohol intake frequency: 3 or more drinks per day Alcohol type: beer Comment: overflow Patient Tobacco Use Status: Current everyday Tobacco user Tobacco use type: Cigarette Cigarette Packs Per Day: 1 Cigarettes Per Day: 20.0 Smoked in Last 30 Days: Yes Second Hand Smoke Exposure: No Use of substances other than those prescribed or required for medical reasons: No Advance Directives: No Advance Directives Information Provided: No Do you have a plan to hurt others: No Plan Meds Allergies Allergy/AdvReac Type Severity Reaction Status Date / Time oxycodone AdvReac Unknown does not Verified 11/14/23 20:40 want unless necessary Active Medications: Current Medications Azithromycin 500 mg/ Sodium (Chloride) 250 mls @ 125 mls/hr IV ONCE ONE Stop: 11/14/23 23:13 Last Admin: 11/14/23 22:56 Dose: 125 mls/hr Home Medications ?Medication ?Instructions ?Recorded ?Confirmed ?Last Taken ?Type aspirin 81 mg tablet,delayed 81 mg PO DAILY 08/26/20 08/08/23 08/07/23 History release atorvastatin 20 mg tablet 20 mg PO DAILY 08/26/20 08/08/23 08/07/23 History lisinopril 20 mg tablet 20 mg PO DAILY 08/26/20 08/08/23 08/07/23 History metoprolol succinate 100 mg 100 mg PO DAILY 08/26/20 08/08/23 08/07/23 History tablet,extended release 24 hr nitroglycerin 0.4 mg sublingual 0.4 mg sublingual Q5M PRN Chest 08/26/20 08/08/23 08/07/23 History tablet Pain albuterol sulfate 90 mcg/actuation 2 puff inhalation QID PRN Wheezing 08/08/23 08/08/23 08/07/23 History aerosol inhaler cyanocobalamin (vitamin B-12) 1,000 mcg PO DAILY 08/08/23 08/08/23 08/07/23 History 1,000 mcg tablet (Vitamin B-12) furosemide 20 mg tablet 20 mg PO DAILY 08/08/23 08/08/23 08/07/23 History thiamine HCl (vitamin B1) 100 mg 100 mg PO DAILY 08/08/23 08/08/23 08/07/23 History tablet (Vitamin B-1) Physical Exam Vital Signs and Narrative: Vital Signs: Last Vital Signs Temp 98.4 F 11/14/23 21:53 Pulse 72 11/14/23 21:53 Resp 17 11/14/23 21:53 BP 161/56 H 11/14/23 21:53 Pulse Ox 94 11/14/23 21:53 O2 Del Method Room Air 11/14/23 21:53 BMI result Body Mass Index 30.4 Middle-aged male lying in bed in mild distress Neck supple, no JVD Regular rate and rhythm, S1-S2 heard Bilateral wheezing appreciated Abdomen soft nontender, no guarding, no rigidity Patient is awake, alert and oriented to self, place, time and person ; no focal motor deficit Psych: Normal mood No pedal edema Results Labs 11/14/23 21:06 11/14/23 21:06 Labs: Laboratory Results - last 24 hr 11/14/23 11/14/23 21:06 21:36 MCV 94.7 MCH 34.1 H MCHC 36.0 RDW 12.9 Plt Count 256 MPV 9.6 Immature Gran % (Auto) 0.8 H Neut % (Auto) 49.1 Lymph % (Auto) 23.3 [place] % (Auto) 9.4 Eos % (Auto) 16.6 H Baso % (Auto) 0.8 Lymph # (Auto) 3.2 [place] # (Auto) 1.3 H Eos # (Auto) 2.3 H Baso # (Auto) 0.1 Abs Immat Gran (auto) 0.11 H Absolute Neuts (auto) 6.7 Absolute Nucleated RBC 0.000 Nucleated RBC % (auto) 0.0 Smear Tech's Comments VERIFIED VBG pH 7.42 VBG pCO2 36 VBG pO2 44 VBG HCO3 24 VBG O2 Saturation 74.0 VBG Base Excess 0.2 Anion Gap 15 Estim Creat Clear Calc 124.1 Estimated GFR > 60 Random Glucose 102 Calcium 9.6 Magnesium 2.0 Total Bilirubin 0.7 Direct Bilirubin 0.3 AST 42 H ALT 39 Alkaline Phosphatase 93 Troponin I High Sens < 2.7 B-Natriuretic Peptide 24 Total Protein 6.8 Albumin 4.1 Influenza Type A (PCR) NEGATIVE Influenza Type B (PCR) NEGATIVE RSV RNA Qual (PCR) NEGATIVE SARS-CoV-2 RNA (RT-PCR) NEGATIVE Imaging Radiologist's Impressions: Impressions Chest X-Ray 11/14/23 20:50 IMPRESSION: Chronic appearing changes similar to the prior study. No acute superimposed process. Assessment and Plan (1) COPD exacerbation: Status: Acute Plan This is a 68-year-old male with pertinent history of COPD not on home oxygen, former tobacco use disorder, hypertension, mixed hyperlipidemia, coronary artery disease, congestive heart failure with preserved ejection fraction presents to the emergency department for evaluation of dyspnea. #. Acute respiratory distress due to acute exacerbation of COPD: Initiating IV steroids. Scheduled and p.r.n. DuoNebs. Initiating azithromycin for pleiotropic effect. Continue home inhaler #. Leukocytosis, reactive: No sepsis #. Mild hyponatremia, chronic: ?likely due to ETOH #. Coronary artery disease: On statin, beta-shonda, aspirin #. Hypertension/congestive heart failure with preserved ejection fraction: No decompensation during admission. On furosemide, lisinopril and metoprolol #. Alcohol use disorder: On thiamine Med rec pending DVT prophylaxis: Lovenox Full code Quality Stroke Does the patient have a stroke diagnosis?: No VTE Prior VTE?: No VTE Risk Level:: Medical - moderate - high VTE Device Contraindication: Treatment Not Indicated VTE Drug Contraindication: N/A - Med Ordered
[2023-11-15] VITALS (9 sets, daily range): BP systolic 132–167; BP diastolic 61–79; PULSE 57–114; RESP 18–26; TEMP 36.2–36.8; O2SAT 91–98
[2023-11-15 00:48] LABS: Lactic Acid 1.7 mmol/L (0.5-2.0)
[2023-11-15] MEDS: Albuterol/Iprat 2.5/0.5MG 3 ML AMPUL.NEB INHALE ×3 (01:40→11:20)
[2023-11-15] MEDS: Benzonatate 100 MG CAPSULE 200 MG PO ×2 (05:56)
[2023-11-15 06:56] LABS: MANUAL DIFF FLAG NO
[2023-11-15 07:07] LABS: Basophils Percent Auto 0.3 % (0-2); Eosinophils Absolute Auto 0.1 X10*3/uL (0.0-0.4); Eosinophils Percent Auto 0.6 % (0-4); Hematocrit 41.1 % (42.0-52.0); Hemoglobin 14.6 g/dl (14.0-18.0); Imm Gran Pct Auto 1.1 % (0.0-0.4); Lymphocytes Absolute Auto 0.8 X10*3/uL (1.2-4.9); Lymphocytes Percent Auto 8.3 % (20-40); Mean Corpuscular HGB Conc 35.5 g/dl (31.0-36.0); Mean Corpuscular Hemoglobin 33.7 pg (27.0-33.0); Mean Corpuscular Volume 94.9 fL (80.0-98.0); Mean Platelet Volume 9.6 fL (9.4-12.4); Monocytes Absolute Auto 0.1 X10*3/uL (0.1-1.2); Neutrophils Absolute Auto 8.2 x10*3/uL (2.0-8.3); Neutrophils Percent Auto 88.7 % (45-73); Platelet Count 241 X10*3/uL (160-400); Red Blood Count 4.33 X10*6/uL (4.60-5.80); Red Cell Distribution Width 12.8 % (11.0-16.0); White Blood Count 9.2 X10*3/uL (4.8-10.8)
[2023-11-15 07:29] LABS: Anion Gap 14 (12-20); Blood Urea Nitrogen 4 mg/dL (9-16); Calcium 9.1 mg/dL (8.4-10.2); Carbon Dioxide 21 mmol/L (22-29); Chloride 100 mmol/L (96-108); Creatinine Clr Calc Pharmacy 118.6; Estimated Glomerular Filt Rate > 60; Glucose Random 175 mg/dL (60-115); Potassium 4.2 mmol/L (3.3-5.1); Sodium 131 mmol/L (135-145)
[2023-11-15] MEDS: 0.9 % Sodium Chloride Flush 3 ML SYRINGE IVFLUSH (08:24)
[2023-11-15] MEDS: methylPREDNISolone Sod Succ 40 MG/ML VIAL IVPUSH (08:24)
[2023-11-15] MEDS: Enoxaparin Sodium 40 MG/0.4 ML SYRINGE SUBCUT (08:25)
--- NOTE | 2023-11-15 08:31 | PHA.MEDREC ---
Pharmacy Consult ? Medication Reconciliation Pharmacy has completed the medication reconciliation. Spoke to patient at bedside, he was able to recall some of his medications without prompting and the rest when prompted. Notably stated he hasn't been able to refill his inhalers recently and was supposed to see his doctor today about his steroid.
--- NOTE | 2023-11-15 10:24 | PM.DS ---
DS: Providers Provider Date of Service: 11/15/23 Date of admission: 11/14/23 23:10 Primary care physician: Unknown Physician DS: Diagnosis Discharge Diagnosis (1) COPD exacerbation: Status: Acute DS: Summary Hospital Course Hospital Course: from initial hpi: 68-year-old male with pertinent history of COPD not on home oxygen, former tobacco use disorder, hypertension, mixed hyperlipidemia, coronary artery disease, congestive heart failure with preserved ejection fraction presents to the emergency department for evaluation of dyspnea. Patient was seen in the ER on 11/02 and discharged home with p.o. prednisone for COPD exacerbation. Patient states he felt better slightly but felt worse once he completed his steroid course. He continues to be short of breath with exertion. Also has been having cough with clear sputum production and wheezing. Has tried home inhaler and home nebulization without any relief. No fever, chills, chest discomfort, palpitations, abdominal pain, changes in urinary or bowel habits. In the emergency department, patient with wheezing despite multiple DuoNeb treatments. hospital course: Patient was admitted for acute hypoxic respiratory failure due to COPD with acute decompensation. He was treated with IV steroids and bronchodilators and azithromycin. Shortness of breath significantly improved and was able to be weaned off oxygen. He is feeling close to baseline. He will be discharged home on prednisone taper. His chronic hyponatremia due to alcohol use is stable. For coronary disease was continued on aspirin statin. For hypertension was continued on lisinopril and metoprolol. For chronic diastolic CHF was continued on Lasix. For alcohol use disorder was stable with no signs of withdrawal. Patient is feeling better and will be discharged home. Time Attestation Discharge Coordination Time (in mins): 32 Quality: Safe Use of Opioids Does Pt have an Active Cancer Diagnosis on the Problem List?: No Quality: Stroke Does the patient have a stroke diagnosis?: No Physical Exam Vital Signs: Vital Signs: Last Vital Signs Temp 98.3 F 11/15/23 07:48 Pulse 98 11/15/23 07:48 Resp 20 11/15/23 07:48 BP 154/77 H 11/15/23 07:48 Pulse Ox 93 11/15/23 07:48 O2 Del Method Room Air 11/15/23 07:48 O2 Flow Rate 2 11/15/23 07:22 BMI result Body Mass Index 30.4 General: AO X 3, no acute distress Resp: CTA bilateral, no accessory muscles used CVS: S1,S2,RRR GI: soft, non tender, non distended Neuro: motor grossly intact, alert Psych: appropriate affect, appropriate insight DS: Data Data Completed and Pending Labs on day of discharge: Laboratory Results - last 24 hr 11/14/23 11/14/23 11/15/23 21:06 21:36 00:31 WBC 13.6 H RBC 4.31 L Hgb 14.7 Hct 40.8 L MCV 94.7 MCH 34.1 H MCHC 36.0 RDW 12.9 Plt Count 256 MPV 9.6 Immature Gran % (Auto) 0.8 H Neut % (Auto) 49.1 Lymph % (Auto) 23.3 [place] % (Auto) 9.4 Eos % (Auto) 16.6 H Baso % (Auto) 0.8 Lymph # (Auto) 3.2 [place] # (Auto) 1.3 H Eos # (Auto) 2.3 H Baso # (Auto) 0.1 Abs Immat Gran (auto) 0.11 H Absolute Neuts (auto) 6.7 Absolute Nucleated RBC 0.000 Nucleated RBC % (auto) 0.0 Smear Tech's Comments VERIFIED VBG pH 7.42 VBG pCO2 36 VBG pO2 44 VBG HCO3 24 VBG O2 Saturation 74.0 VBG Base Excess 0.2 Sodium 128 L Potassium 3.9 Chloride 96 Carbon Dioxide 21 L Anion Gap 15 BUN 4 L Creatinine 0.64 Estim Creat Clear Calc 124.1 Estimated GFR > 60 Random Glucose 102 Lactic Acid 1.7 Calcium 9.6 Magnesium 2.0 Total Bilirubin 0.7 Direct Bilirubin 0.3 AST 42 H ALT 39 Alkaline Phosphatase 93 Troponin I High Sens < 2.7 B-Natriuretic Peptide 24 Total Protein 6.8 Albumin 4.1 Influenza Type A (PCR) NEGATIVE Influenza Type B (PCR) NEGATIVE RSV RNA Qual (PCR) NEGATIVE SARS-CoV-2 RNA (RT-PCR) NEGATIVE 11/15/23 05:26 WBC 9.2 RBC 4.33 L Hgb 14.6 Hct 41.1 L MCV 94.9 MCH 33.7 H MCHC 35.5 RDW 12.8 Plt Count 241 MPV 9.6 Immature Gran % (Auto) 1.1 H Neut % (Auto) 88.7 H Lymph % (Auto) 8.3 L [place] % (Auto) 1.0 L Eos % (Auto) 0.6 Baso % (Auto) 0.3 Lymph # (Auto) 0.8 L [place] # (Auto) 0.1 Eos # (Auto) 0.1 Baso # (Auto) 0.0 Abs Immat Gran (auto) 0.10 H Absolute Neuts (auto) 8.2 Absolute Nucleated RBC 0.000 Nucleated RBC % (auto) 0.0 Smear Tech's Comments VBG pH VBG pCO2 VBG pO2 VBG HCO3 VBG O2 Saturation VBG Base Excess Sodium 131 L Potassium 4.2 Chloride 100 Carbon Dioxide 21 L Anion Gap 14 BUN 4 L Creatinine 0.67 Estim Creat Clear Calc 118.6 Estimated GFR > 60 Random Glucose 175 H Lactic Acid Calcium 9.1 Magnesium Total Bilirubin Direct Bilirubin AST ALT Alkaline Phosphatase Troponin I High Sens B-Natriuretic Peptide Total Protein Albumin Influenza Type A (PCR) Influenza Type B (PCR) RSV RNA Qual (PCR) SARS-CoV-2 RNA (RT-PCR) Discharge Plan Discharge Anticipated Discharge Date/Time: 11/15/23 10:15 Patient Disposition: Home, Self-Care Discharge Diagnosis: copd Referrals: Physician,Unknown J [Primary Care Provider] - 1 Week Discharge Medications: New prednisone 20 mg tablet 40 mg PO DAILY Qty: 15 0RF Rx Instructions: prednisone 40mg daily for 5 days then 20mg daily for 5 days Continued furosemide 20 mg tablet 20 mg PO DAILY albuterol sulfate 90 mcg/actuation HFA aerosol inhaler 2 puff inhalation QID PRN (Reason: Wheezing) cyanocobalamin (vitamin B-12) [Vitamin B-12] 1,000 mcg Tablet 1,000 mcg PO DAILY thiamine HCl (vitamin B1) [Vitamin B-1] 100 mg Tablet 100 mg PO DAILY benzonatate 100 mg Capsule 200 mg PO TID PRN (Reason: Cough) Qty: 30 0RF nicotine 21 mg/24 hr Patch 24 Hour 21 mg transdermal DAILY Qty: 30 0RF fluticasone furoate-vilanterol [Breo Ellipta] 100-25 mcg/dose blister with device 1 inh inhalation DAILY Qty: 60 0RF cefpodoxime 200 mg tablet 200 mg PO BID Qty: 20 0RF Rx Instructions: must administer with a meal/food albuterol sulfate 2.5 mg /3 mL (0.083 %) solution for nebulization 2.5 mg inhalation Q4-6H PRN (Reason: shortness of breath or wheezing) Qty: 90 0RF (DME) nebulizers [Aeroneb Go Nebulizer] Misc See Rx Instructions .Route Qty: 1 0RF Rx Instructions: As directed aspirin 81 mg tablet,delayed release (DR/EC) 81 mg PO DAILY metoprolol succinate 100 mg tablet extended release 24 hr 100 mg PO DAILY lisinopril 20 mg tablet 20 mg PO DAILY atorvastatin 20 mg tablet 20 mg PO DAILY nitroglycerin 0.4 mg tablet, sublingual 0.4 mg sublingual Q5M PRN (Reason: Chest Pain) Rx Instructions: do not exceed 3 doses per episode Discontinued prednisone 20 mg tablet 40 mg PO DAILY Qty: 6 0RF Discharge Orders: Discharge Order (Routine); Ordered 11/15/23 Ordered By: Corby Nix Diet: Advance to usual diet Activity on Discharge: As tolerated Stand Alone Forms: Patient Portal Discharge page Print Language: Brazilian Care Plan Goals: recovery Health Concerns: copd Plan of Treatment: prednisone taper Assessment: see above
--- NOTE | 2023-11-15 12:19 | MHC.CM.PN ---
Addendum entered by Dolores Yañez 11/15/23 12:51: CORRECTION: PTS PCP IS DR LUNDBERG AT [facility] Original Note: PT REPORTS HE LIVES ALONE AND IS INDEPENDENT WITH CARE AND MOBILITY HE HAS A NEBULIZER FOR DME AND NO SERVICES PT SAYS HE HAS A HCP NAMING HIS SISTER HIS [facility] PCP: [facility] NOTICE DELIVERED DCP: HOME TODAY WITH NO SERVICES VIA PRIVATE TRANSPORT
== END 2023-11-15 12:46 | disposition home or self-care (01) ==
LOC: HO.ED 23:14 → HO.EDOVER 23:21 → HO.S3 11-15 00:22
PROVIDERS: Physician Assistant Medical; Admitting Provider Student in an Organized Health Care Education/Training Program; Emergency Provider Emergency Medicine; PCP Internal Medicine; Visit Provider Internal Medicine
DX: J44.1 Chronic obstructive pulmonary disease with (acute) exacerbation (principal); R06.02 Shortness of breath; Z79.899 Other long term (current) drug therapy; E78.5 Hyperlipidemia, unspecified; J98.4 Other disorders of lung; E78.2 Mixed hyperlipidemia; I25.10 Atherosclerotic heart disease of native coronary artery without angina pectoris; I11.0 Hypertensive heart disease with heart failure; I50.32 Chronic diastolic (congestive) heart failure; E87.1 Hypo-osmolality and hyponatremia; Z87.891 Personal history of nicotine dependence; Z03.818 Encounter for observation for suspected exposure to other biological agents ruled out
CPT/HCPCS: 0241U; 36415; 71045; 80048; 80076; 82803; 83605; 83735; 83880; 84484; 85025; 87040; 93005; 94640; 96365; 96366; 96367; 96368; 96372; 96375; 96376; 99221; 99285; J0456; J0696; J1650; J2919; J3475

== ENCOUNTER → 2023-11-14 20:44 | Outpatient (BNV) | payer MEDICARE, MEDICAID, SELFPAY | PROVIDERS: Admitting Provider Student in an Organized Health Care Education/Training Program; Emergency Provider Emergency Medicine; Visit Provider Internal Medicine Cardiovascular Disease | DX: R06.00 Dyspnea, unspecified (principal) | CPT/HCPCS: 93010 ==

== ENCOUNTER → 2023-11-14 23:10 | Outpatient (BNV) | payer MEDICARE, MEDICAID, SELFPAY | PROVIDERS: Admitting Provider Student in an Organized Health Care Education/Training Program; Emergency Provider Emergency Medicine; Visit Provider Student in an Organized Health Care Education/Training Program | DX: J44.1 Chronic obstructive pulmonary disease with (acute) exacerbation (principal) | CPT/HCPCS: 99222; 99239 ==

== ENCOUNTER 2024-03-10 07:43 | Outpatient (REF) | payer MEDICARE, MEDICAID, SELFPAY | END 2024-03-10 07:44 | disposition home or self-care (01) | LOC: HO.CT 07:43 | PROVIDERS: PCP Internal Medicine; Visit Provider Physician Assistant Medical | DX: Z12.2 Encounter for screening for malignant neoplasm of respiratory organs (principal); Z87.891 Personal history of nicotine dependence | CPT/HCPCS: 71271 ==

== ENCOUNTER 2024-04-11 08:39 | Outpatient (REF) | payer MEDICARE, MEDICAID, SELFPAY ==
--- NOTE | ~2024-04-11 | XR_ITS ---
EXAMINATION: XR CHEST CLINICAL INFORMATION: SOB COMPARISON: Chest radiograph 10/15/2023 TECHNIQUE: PA and lateral views of the chest were obtained. FINDINGS: The lungs are well expanded. Bilateral lung apices are obscured by chin artifact. No focal consolidation, effusion, edema, or pneumothorax. The cardiomediastinal silhouette is within normal limits for technique and unchanged. Aortic arch calcifications again noted. No acute osseous abnormality. XR/XR chest 2V IMPRESSION: No acute pulmonary disease. Electronically signed by: Dina Mckeon DO 04/11/2024 04:14 PM [facility]
--- OUTSIDE RECORDS SUMMARY | 2024-04-11 08:45 | XMS_ITS | Patient Health Record ---
Author Organization [facility] [place] Address [address] [place] [address] Care Team Providers Care Machine Heel Sprayer Name Role Phone Jeyson HERNANDEZ, Michael Primary Care Provider Cassandra Torres Unavailable [phone] Reason For Referral No Information Plan Of Treatment No Information Insurance Providers Payer Name Payer Address Payer Phone Subscriber Number Group Number Insured Name Patient Relationship to Insured Coverage Start Date Coverage End Date Medicare National Govt Sv[employer] [address] [place] [address] [id number] Marques Hoskins Self - patient is the insured
--- OUTSIDE RECORDS SUMMARY | 2024-04-11 08:45 | XMS_ITS ---
Author Organization [facility] Address [address] [place] [address] Care Team Providers Care Life Teacher Name Role Phone Jeyson HERNANDEZ, Michael Primary Care Provider Cassandra Torres Unavailable [phone] Encounters Encounter Location Date Provider Diagnosis [facility] [address] [place] [address] 02/27/2024 Cassandra Good Plan Of Treatment No Information Progress Notes * Marques HOSKINSDOB:1955 (68 yo M)Acc No.[id number]:02/27/2024 Progress Notes Patient:?Marques HOSKINS Provider:?Cassandra Good DPM :1955???Age:68 Y???Sex:Male Kody e:02/27/2024 Address:[address] [place], [place] [id number] Pcp:Michael Benítez MD Subjective: * Chief Complaints: * ??? * Medical History:? Objective: * Vitals:? Assessment: Plan: * Treatment: * Images: * The named appointment provid er may or may not be the originator of this progress note, and it is not deemed complete until electronically signed by the appointment provider. Sign off status: Pending * Provider:?Cassandra Good DPM Date:? Generated for Alfredo ni/Bronwyn/Tristanransmitting on:?04/11/2024 08:45 AM EST
== END 2024-04-11 08:40 | disposition home or self-care (01) ==
LOC: HO.XRAY 08:39
PROVIDERS: PCP Physician Assistant Surgical; Visit Provider Physician Assistant Surgical
DX: R06.02 Shortness of breath (principal)
CPT/HCPCS: 71046

== ENCOUNTER 2024-05-12 10:46 | Outpatient (AMB) | payer MEDICARE, MEDICAID, SELFPAY ==
[2024-05-12 10:48] VITALS: BP 126/62; PULSE 68; O2SAT 98; BMI 32.7
--- NOTE | 2024-05-12 10:48 | MHC.OFFVIS ---
Vital Signs 05/12/24 10:48 Height 5 ft 7 in Weight 209 lb BMI 32.7 BP 126/62 Blood Pressure Location Lt brachial Position Sitting Pulse 68 Pulse Source Doppler Pulse Oximetry (%) 98 Oxygen Delivery Method Room Air Intake Visit Reasons: Mediastinal Mass Allergies oxycodone Adverse Reaction (Unknown, Verified 11/14/23 20:40) does not want unless necessary HPI HPI Mediastinal Mass: Details: 68-year-old gentleman, prior 40+ pack-year smoker, with underlying COPD of unclear severity followed by lung cancer screening program for the last several years who had a routine lung cancer screening CT chest that demonstrated an enlarged left upper paratracheal nodule. Patient is also complaining of changes in his voice over the last months. He has been using Flovent and albuterol MDI/nebs with reasonable control of his dyspnea symptoms. He denies family history of lung disease. [facility] Medical History (Updated 05/12/24 @ 11:22 by Devon Newberry MD) Excessive drinking alcohol Atherosclerotic cardiovascular disease Essential hypertension Other and unspecified hyperlipidemia COPD (chronic obstructive pulmonary disease) Nicotine dependence, cigarettes, uncomplicated Surgical History History of cardiac catheterization (~09/16/14) Family History Father Alzheimer disease Myocardial infarction CVD (cardiovascular disease) Mother Alzheimer disease HTN (hypertension) Social History Household Members: None Housing: House Do you presently have visiting nurse or other home services: No Alcohol intake: current Alcohol intake frequency: 3 or more drinks per day Alcohol type: beer Comment: overflow Patient Tobacco Use Status: Former Tobacco user Tobacco use type: Cigarette Cigarette Packs Per Day: 1 Cigarettes Per Day: 20.0 Years Smoked: 51 Second Hand Smoke Exposure: No service: No Review of Systems Const Denies daytime sleepiness, Denies excessive sweating, Denies fatigue, Denies fever(s), Denies lethargy, Denies malaise, Denies night sweats, Denies snoring and Denies weight loss Eyes Denies blurry vision and Denies itchy eyes ENT Denies nasal congestion, Denies post nasal drip, Denies sinus pain, Denies sinus pressure and Denies other ( Thrush) Card Denies chest pain, Denies pedal edema, Denies dyspnea, Denies orthopnea and Denies paroxysmal nocturnal dyspnea Resp Denies cough, Denies hemoptysis, Denies excessive phlegm production, Denies dyspnea, Denies snoring and Denies wheezing GI Denies abdominal pain and Denies heartburn Musc Denies myalgias, Denies arthralgias and Denies joint swelling Skin/Breast Denies rash Neuro Denies memory loss and Denies seizure-like activity Psych Denies abnormal sleep pattern, Denies anxiety and Denies memory loss Endo Denies excessive sweating, Denies fatigue and Denies heat intolerance Hector/Lymph Denies easy bruising Aller/Immun Denies itchy eyes, Denies seasonal rhinorrhea and Denies wheezing Physical Exam Vital Signs: Last Vital Signs Pulse 68 05/12/24 10:48 BP 126/62 05/12/24 10:48 Pulse Ox 98 05/12/24 10:48 Oxygen Delivery Method Room Air 05/12/24 10:48 BMI result Body Mass Index 32.7 Const General: no acute distress and alert Nutritional Appearance: obese Orientation/consciousness: Other orientation findings ( oriented) HEENT Head: Yes atraumatic Eyes General: appearance normal, both eyes and all related structures Sclerae: sclerae normal EOM: EOMs intact bilaterally Neck Neck: Yes supple Lymphatic: no lymphadenopathy noted Resp Effort & Inspection: normal respiratory effort and no use of accessory muscles Auscultation: clear to auscultation bilaterally Cardio Rate: regular rate Rhythm: regular rhythm Heart sounds: no gallops, no murmurs and no rubs Skin General skin exam: other ( warm) Extrem General: No clubbing, No cyanosis and No edema Assessment & Plan Assessment & Plan (1) Mediastinal mass: Comment: (paratracheal mediastinal mass increasing in size - 2.2 x 1.6 x 2.2 cm - 02/2024 LDCT) Code(s): J98.59 - Other diseases of mediastinum, not elsewhere classified Category: Medical Plan: Increasing left upper paratracheal lymph. Will plan for EBUS biopsy. (2) COPD (chronic obstructive pulmonary disease): Code(s): J44.9 - Chronic obstructive pulmonary disease, unspecified Category: Medical Plan: Likely underlying COPD of unclear severity. Will obtain full PFT. Continue regimen of albuterol MDI/nebs. Stop Flovent. Coding Level of Care Code New Pt Level 4 (34787) Diagnoses Mediastinal mass J98.59 COPD (chronic obstructive pulmonary disease) J44.9
--- OUTSIDE RECORDS SUMMARY | 2024-05-12 12:28 | XMS_ITS | Patient Health Record ---
Author Organization [facility] Address [address] [place] [address] Care Team Providers Care Mamma Logist Name Role Phone Jeyson HERNANDEZ, Michael Primary Care Provider Cassandra Torres Unavailable [phone] Reason For Referral No Information Plan Of Treatment No Information Insurance Providers Payer Name Payer Address Payer Phone Subscriber Number Group Number Insured Name Patient Relationship to Insured Coverage Start Date Coverage End Date Medicare National Govt Svcs Inc [address] [facility] [place] [address] [id number] Marques Hoskins Self - patient is the insured
== END 2024-05-12 11:26 | disposition home or self-care (01) ==
PROVIDERS: PCP Physician Assistant Surgical; Visit Provider Internal Medicine Pulmonary Disease
DX: J98.59 Other diseases of mediastinum, not elsewhere classified (principal); J44.9 Chronic obstructive pulmonary disease, unspecified
CPT/HCPCS: 99204

== ENCOUNTER → 2024-05-12 10:46 | Outpatient (BNVA) | payer MEDICARE, MEDICAID, SELFPAY | PROVIDERS: PCP Physician Assistant Surgical; Visit Provider Internal Medicine Pulmonary Disease | DX: J98.59 Other diseases of mediastinum, not elsewhere classified (principal); J44.9 Chronic obstructive pulmonary disease, unspecified | CPT/HCPCS: 99202 ==

== ENCOUNTER 2024-06-06 10:58 | Outpatient (REF) | payer MEDICARE, MEDICAID, SELFPAY ==
[2024-06-06 15:59] LABS: Influenza A PCR POSITIVE (Negative); Influenza B PCR NEGATIVE (Negative); Resp Syncy Virus RNA Qual PCR NEGATIVE (Negative); SARS COV2 PCR INHOUSE NEGATIVE (Negative)
== END 2024-06-06 10:59 | disposition home or self-care (01) ==
LOC: HO.LAB 10:58
PROVIDERS: PCP Physician Assistant Surgical; Visit Provider Physician Assistant
DX: Z13.89 Encounter for screening for other disorder (principal)
CPT/HCPCS: 0241U

== ENCOUNTER 2024-06-06 10:58 | Outpatient (AMB) | payer MEDICARE, MEDICAID, SELFPAY ==
[2024-06-06 11:02] VITALS: BP 128/70; PULSE 84; O2SAT 98
--- NOTE | 2024-06-06 11:02 | AM.OFFWIN_ITS ---
Intake Vital Signs 06/06/24 11:02 Weight 210 lb BP 128/70 Blood Pressure Location Rt brachial Position Sitting Pulse 84 Pulse Source Pulse Oximeter Pulse Oximetry (%) 98 Oxygen Delivery Method Room Air Intake Visit Reasons: EP SOB,COPD Intake Note: Patient here for SOB that has been pretty bad since last night. pt has a hx of COPD. Patient Tobacco Use Status: Former Tobacco user Allergies oxycodone Adverse Reaction (Unknown, Verified 06/06/24 11:03) does not want unless necessary Do you need a note to return to daycare/school/sports/work: No HPI HPI Comments History of Present Illness Details History - The patient is a 68-year-old male pres enting with worsened shortness of breath and cough related to COPD. - Symptoms of increased shortness of yamile ath began last night, described as severe distress during exertion. - He states he has been discussing incre ased COPD symptoms over the last few months with his PCP but has not had a change in his baseline medications. - Chronic productive cough of two months duration with clear sputum has been noted, with no reported fevers. - The patient has been using home albute rol nebulizer treatments frequently overnight without noted improvement. - History reveals past treatments with p rednisone during exacerbations which the patient finds very beneficial. - There is a known throat growth yet to be biopsied and a history of frequent emergency service contact during acute respiratory distress episodes. Physical Exam General: Cooperative, healthy appearing, comfortable but in very mild respiratory distress Orientation/consciousness: Patient oriented x3 Limitations: No limitations Head: Normal to inspection Ears: Hearing grossly normal bilaterally, external ears normal and TM's normal bilaterally Nose: Normal external nose present, Normal nares present and No nasal discharge present Face and sinus: Normal facial exam and Yes sinuses nontender Mouth: Normal oral and palatal mucosa present and moist mucous membranes Throat: Yes tonsils normal, Yes uvula midline. Posterior oropharynx erythema Eyes: Appearance normal, both eyes and all related structures Neck: Normal visual inspection Respiratory: Dim with exp wheezes bilaterally. Normal respiratory effort, able to speak in complete sentences, Actively coughing, no respiratory distress, not tachypneic, no tripod positioning and no use of accessory muscles. Lungs are a little bit dim and wheezy when exhaling Cardiovascular: Regular rate and rhythm. Normal S1 and S2 Skin: No rashes or lesions noted Neuro: Patient oriented x3 Extremities: Normal to inspection and Yes no clubbing, cyanosis or edema PFSH Medical History (Updated 05/12/24 @ 11:22 by Devon Newberry MD) Excessive drinking alcohol Atherosclerotic cardiovascular disease Essential hypertension Other and unspecified hyperlipidemia COPD (chronic obstructive pulmonary disease) Nicotine dependence, cigarettes, uncomplicated Surgical History History of cardiac catheterization (~09/16/14) Family History Father Alzheimer disease Myocardial infarction CVD (cardiovascular disease) Mother Alzheimer disease HTN (hypertension) Social History Household Members: None Housing: House Do you presently have visiting nurse or other home services: No Alcohol intake: current Alcohol intake frequency: 3 or more drinks per day Alcohol type: beer Comment: overflow Patient Tobacco Use Status: Former Tobacco user Tobacco use type: Cigarette Cigarette Packs Per Day: 1 Cigarettes Per Day: 20.0 Years Smoked: 51 Second Hand Smoke Exposure: No service: No Physical Exam Vital Signs: Last Vital Signs Pulse 84 06/06/24 11:02 BP 128/70 06/06/24 11:02 Pulse Ox 98 06/06/24 11:02 Oxygen Delivery Method Room Air 06/06/24 11:02 Office Meds prednisone 20 mg tablet Performing Provider: Vida Meredith PA-C [place] [facility] Administered by: Vida Meredith PA-C on 06/06/24 11:34 Dose Route Admin Location Dispensed Lot Number Expiration Date [facility] [employer] 20 mg PO 3 tab [id number] 07/28/25 Assessment & Plan Assessment & Plan (1) COPD exacerbation: Code(s): J44.1 - Chronic obstructive pulmonary disease with (acute) exacerbation Plan: VSS, pt in mild respiratory distress but was given PO prednisone in office and we had him wait for 45 mins and respiratory distress was resolved before departure. Also, did an ambulatory trial, his O2 sat went from 98% to 96%. Sent ZPak for antiinflammatory effects and will send Augmentin in CXR shows PNA, possible PNA on my read, pending Rads read. Diagnostic testing for influenza, COVID-19, and RSV was performed as a precautionary measure considering the suspected upper respiratory infection. Will get CXR to rule out acute issues. The patient received a significant administration of prednisone, 60 mg, in office for the acute exacerbation of chronic obstructive pulmonary disease COPD as he was physically short of breath, O2 sat 98%, and was monitored to ensure clinical improvement before departure. Patient states he was feeling so much better, breathing easier and respiratory distress completely resolved prior to departure. A prescription for four additional days of prednisone, 50 mg daily, was provided with instructions to avoid further doses on the day of the visit. Continued use of the albuterol nebulizer AM, afternoon and PM was advised, refill was sent. The albuterol inhaler was recommended for additional relief as required. The patient was encouraged to use a low threshold to seek emergency services if experiencing acute respiratory distress despite stable oxygen readings. Patient was informed and verbally consented to the use of an ambient scribe for clinic note documentation during this visit Orders: Orders AMB Prednisone Adult Dose Today J44.1 - Chronic obstructive pulmonary disease with (acute) exacerbation SARS-CoV2/FLU/RSV Today R09.89 - Other specified symptoms and signs involving the circulatory and respiratory systems XR chest 2V Today R05.9 - Cough, unspecified Medications: New azithromycin For 250 mg dose pack: take 500 mg today (day 1), then 250 mg for 4 days (days 2-5) PO 6 tabs 0RF prednisone 50 mg PO QAM 4 tabs 0RF Refilled albuterol sulfate 2.5 mg (3 mL) inhalation Q4-6H PRN 90 mL 0RF shortness of b reath or wheezing Coding Level of Care Code New Pt Level 5 (20474) Diagnoses COPD exacerbation J44.1
--- OUTSIDE RECORDS SUMMARY | 2024-06-06 12:03 | XMS_ITS ---
Author Organization [facility] Address [address] [place] [address] Care Team Providers Care Battery Mechanic Name Role Phone Jeyson HERNANDEZ, Michael Primary Care Provider Cassandra Torres Unavailable [phone] Encounters Encounter Location Date Provider Diagnosis [facility] [address] [place] [address] 02/27/2024 Cassandra Good Plan Of Treatment No Information Progress Notes * Marques HOSKINSDOB:1955 (68 yo M)Acc No.[id number]:02/27/2024 Progress Notes Patient:?Marques HOSKINS Provider:?Cassandra Good DPM :1955???Age:68 Y???Sex:Male Kody e:02/27/2024 Address:[address] [place], [place] [id number] Pcp:Michael Benítez MD Subjective: * Chief Complaints: * ??? * Medical History:? Objective: * Vitals:? Assessment: Plan: * Treatment: * Images: * The named appointment provid er may or may not be the originator of this progress note, and it is not deemed complete until electronically signed by the appointment provider. Sign off status: Pending * Provider:?Cassandra Good DPM Date:? Generated for Alfredo ni/Bronwyn/Juicesmitting on:?06/06/2024 12:03 PM EST
--- OUTSIDE RECORDS SUMMARY | 2024-06-06 12:03 | XMS_ITS | Patient Health Record ---
Author Organization [facility] Address [address] [place] [address] Care Team Providers Care Pest Control Technician Name Role Phone Jeyson HERNANDEZ, Michael Primary Care Provider Cassandra Torres Unavailable [phone] Reason For Referral No Information Plan Of Treatment No Information Insurance Providers Payer Name Payer Address Payer Phone Subscriber Number Group Number Insured Name Patient Relationship to Insured Coverage Start Date Coverage End Date Medicare National [employer] [address] [facility] [place] [address] [id number] Marques Hoskins Self - patient is the insured
== END 2024-06-06 12:08 | disposition home or self-care (01) ==
PROVIDERS: PCP Physician Assistant Surgical; Visit Provider Physician Assistant
DX: J44.1 Chronic obstructive pulmonary disease with (acute) exacerbation (principal)

== ENCOUNTER 2024-06-06 11:46 | Outpatient (REF) | payer MEDICARE, MEDICAID, SELFPAY ==
--- NOTE | ~2024-06-06 | XR_ITS ---
EXAMINATION: XR CHEST CLINICAL INFORMATION: R05.9 - Cough, unspecified COMPARISON: April 11, 2024. TECHNIQUE: 2 views of the chest were obtained. FINDINGS: No consolidation, pleural effusion or pneumothorax. Cardiomediastinal silhouette demonstrates a masslike opacity in the superior mediastinum resulting right tracheal deviation. Calcified plaque thoracic aorta. The level thoracic spondylosis. Osteopenia versus osteoporosis. XR/XR chest 2V IMPRESSION: No acute airspace disease. Questionable superior mediastinal mass/lymphadenopathy. Atherosclerosis disease. Electronically signed by: Elijah Albrecht MD 06/06/2024 12:09 PM MARILUZ
== END 2024-06-06 11:47 | disposition home or self-care (01) ==
LOC: HO.HMGCX 11:46
PROVIDERS: PCP Internal Medicine; Visit Provider Physician Assistant
DX: J44.1 Chronic obstructive pulmonary disease with (acute) exacerbation (principal); R09.89 Other specified symptoms and signs involving the circulatory and respiratory systems; R05.9 Cough, unspecified
CPT/HCPCS: 0241U; 71046; 99202

== ENCOUNTER → 2024-06-06 11:49 | Outpatient (BNV) | payer MEDICARE, MEDICAID, SELFPAY | PROVIDERS: PCP Internal Medicine; Visit Provider Radiology Diagnostic Radiology | DX: M47.894 Other spondylosis, thoracic region (principal); I70.0 Atherosclerosis of aorta | CPT/HCPCS: 71046 ==

== ENCOUNTER 2024-07-03 06:31 | Day surgery (SDC) | payer MEDICARE, MEDICAID, SELFPAY ==
--- OUTSIDE RECORDS SUMMARY | 2024-05-12 13:37 | XMS_ITS ---
Author Organization [facility] Address [address] [place] [address] Care Team Providers Care Ip Network Architect Name Role Phone Jeyson HERNANDEZ, Michael Primary Care Provider Cassandra Torres Unavailable [phone] Encounters Encounter Location Date Provider Diagnosis [facility] [address] [place] [address] 02/27/2024 Cassandra Good Plan Of Treatment No Information Progress Notes * Marques HOSKINSDOB:1955 (68 yo M)Acc No.[id number]:02/27/2024 Progress Notes Patient:?Marques HOSKINS Provider:?Cassandra Good DPM :1955???Age:68 Y???Sex:Male Kody e:02/27/2024 Address:[address] [place], [place] [id number] Pcp:Michael Benítez MD Subjective: * Chief Complaints: * ??? * Medical History:? Objective: * Vitals:? Assessment: Plan: * Treatment: * Images: * The named appointment provid er may or may not be the originator of this progress note, and it is not deemed complete until electronically signed by the appointment provider. Sign off status: Pending * Provider:?Cassandra Good DPM Date:? Generated for Alfredo ni/Bronwyn/eTransmitting on:?05/12/2024 01:36 PM EST
--- NOTE | 2024-05-13 12:29 | P.CONAN_ITS ---
HPI - Anesthesia Eval Consult details Narrative: 68yo M for Endoscopic Bronchial Ultrasound Excessive ETOH with hyponatremia. Labs DOS 2020 cardiac work up for chest pain neg with prn cardioloogy f/u only [facility] Active Problems Active Problems: All Active Problems (Updated 05/12/24 @ 11:22 by Devon Newberry MD) COPD (chronic obstructive pulmonary disease) (Acute) Mediastinal mass (Acute) Excessive drinking alcohol (Acute) Atherosclerotic cardiovascular disease (Acute) Precordial chest pain (Acute) Essential hypertension (Acute) Other and unspecified hyperlipidemia (Acute) Chronic lung disease (Acute) COPD exacerbation (Acute) Nicotine dependence, cigarettes, uncomplicated (Acute) Past Medical History Medical History (Updated 05/12/24 @ 11:22 by Devon Newberry MD) Excessive drinking alcohol Atherosclerotic cardiovascular disease Essential hypertension Other and unspecified hyperlipidemia COPD (chronic obstructive pulmonary disease) Nicotine dependence, cigarettes, uncomplicated Family History Family History Father Alzheimer disease Myocardial infarction CVD (cardiovascular disease) Mother Alzheimer disease HTN (hypertension) Surgical History Surgical History History of cardiac catheterization (~09/16/14) Social History Social History Household Members: None Housing: House Do you presently have visiting nurse or other home services: No Alcohol intake: current Alcohol intake frequency: 3 or more drinks per day Alcohol type: beer Comment: overflow Patient Tobacco Use Status: Former Tobacco user Tobacco use type: Cigarette Cigarette Packs Per Day: 1 Cigarettes Per Day: 20.0 Years Smoked: 51 Second Hand Smoke Exposure: No service: No Meds Allergies Allergy/AdvReac Type Severity Reaction Status Date / Time oxycodone AdvReac Unknown does not Verified 11/14/23 20:40 want unless necessary Home Medications ?Medication ?Instructions ?Recorded ?Confirmed ?Last Taken ?Type aspirin 81 mg tablet,delayed 81 mg PO DAILY 08/26/20 11/15/23 11/14/23 History release atorvastatin 20 mg tablet 20 mg PO DAILY 08/26/20 11/15/23 11/14/23 History lisinopril 20 mg tablet 20 mg PO DAILY 0411/15/23 11/14/23 History metoprolol succinate 100 mg 100 mg PO DAILY 08/26/20 11/15/23 11/14/23 History tablet,extended release 24 hr nitroglycerin 0.4 mg sublingual 0.4 mg sublingual Q5M PRN Chest 08/26/20 11/15/23 11/14/23 History tablet Pain albuterol sulfate 90 mcg/actuation 2 puff inhalation QID PRN Wheezing 08/08/23 11/15/23 11/14/23 History aerosol inhaler cyanocobalamin (vitamin B-12) 1,000 mcg PO DAILY 08/08/23 11/15/23 11/14/23 History 1,000 mcg tablet (Vitamin B-12) furosemide 20 mg tablet 20 mg PO DAILY 08/08/23 11/15/23 11/14/23 History thiamine HCl (vitamin B1) 100 mg 100 mg PO DAILY 08/08/23 11/15/23 11/14/23 History tablet (Vitamin B-1) Exam Narrative Narrative: EKG 10/2023 Vent. Rate : 077 BPM Atrial Rate : 000 BPM P-R Int : 000 ms QRS Dur : 068 ms QT Int : 392 ms P-R-T Axes : 000 035 057 degrees QTc Int : 443 ms Poor data quality Normal sinus rhythm Normal ECG When compared with ECG of 03-NOV-2023 04:41, No significant changes seen Assessment and Plan Assessment Anesthesia Assessment: Chart Reviewed
[2024-07-01 11:52] VITALS: BMI 32.7
--- NOTE | 2024-07-02 10:13 | P.CONAN_ITS ---
Documented by User: More Edward NP 07/02/24 14:29 HPI - Anesthesia Eval Consult details Narrative: 68yo M for Endoscopic Bronchial Ultrasound Heavy ETOH with hx of hyponatremia Current ppd smoker Previously followed with [facility] for ASCD. Last seen 2020- ECHO ok, stress not done d/t fear of needles. OV note states cath 2014 with minimal disease. No other cardiology f/u per patient. No CP, but activity extremely limited to severe SOB Case reviewed with Dr Oropeza [facility] Active Problems Active Problems: All Active Problems COPD (chronic obstructive pulmonary disease) (Acute) Mediastinal mass (Acute) Excessive drinking alcohol (Acute) Atherosclerotic cardiovascular disease (Acute) Precordial chest pain (Acute) Essential hypertension (Acute) Other and unspecified hyperlipidemia (Acute) Chronic lung disease (Acute) COPD exacerbation (Acute) Nicotine dependence, cigarettes, uncomplicated (Acute) Past Medical History Medical History Excessive drinking alcohol Atherosclerotic cardiovascular disease Essential hypertension Other and unspecified hyperlipidemia COPD (chronic obstructive pulmonary disease) Nicotine dependence, cigarettes, uncomplicated Family History Family History Father Alzheimer disease Myocardial infarction CVD (cardiovascular disease) Mother Alzheimer disease HTN (hypertension) Surgical History Surgical History History of cardiac catheterization (~09/16/14) Social History Social History Household Members: None Housing: House Are you a primary healthcare administration internship to a significant other at home: No Do you presently have visiting nurse or other home services: No Alcohol intake: current Alcohol intake frequency: 3 or more drinks per day Alcohol type: beer Comment: overflow Patient Tobacco Use Status: Former Tobacco user Tobacco use type: Cigarette Cigarette Packs Per Day: 1 Cigarettes Per Day: 20.0 Years Smoked: 51 Second Hand Smoke Exposure: No service: No Meds Allergies Allergy/AdvReac Type Severity Reaction Status Date / Time oxycodone AdvReac Unknown does not Verified 07/03/24 08:56 want unless necessary Home Medications ?Medication ?Instructions ?Recorded ?Confirmed ?Last Taken ?Type aspirin 81 mg tablet,delayed 81 mg PO DAILY 08/26/20 07/03/24 07/02/24 History release atorvastatin 20 mg tablet 20 mg PO DAILY 08/26/20 11/15/23 11/14/23 History lisinopril 20 mg tablet 20 mg PO DAILY 08/26/20 11/15/23 11/14/23 History metoprolol succinate 100 mg 100 mg PO DAILY 08/26/20 11/15/23 11/14/23 History tablet,extended release 24 hr nitroglycerin 0.4 mg sublingual 0.4 mg sublingual Q5M PRN Chest 08/26/20 11/15/23 11/14/23 History tablet Pain albuterol sulfate 90 mcg/actuation 2 puff inhalation QID PRN Wheezing 08/08/23 11/15/23 11/14/23 History aerosol inhaler cyanocobalamin (vitamin B-12) 1,000 mcg PO DAILY 08/08/23 11/15/23 11/14/23 Hi story 1,000 mcg tablet (Vitamin B-12) furosemide 20 mg tablet 20 mg PO DAILY 08/08/23 11/15/23 11/14/23 History thiamine HCl (vitamin B1) 100 mg 100 mg PO DAILY 08/08/23 11/15/23 11/14/23 Hi story tablet (Vitamin B-1) Exam Height,Weight and Vital Signs: Height 5 ft 7 in Weight 94.801 kg Pertinent Lab Results Pertinent Lab Results: Laboratory Tests 11/15/23 05:26 WBC 9.2 Hgb 14.6 Hct 41.1 L Plt Count 241 Sodium 131 L Potassium 4.2 Chloride 100 BUN 4 L Creatinine 0.67 Narrative Narrative: EKG 10/2023 Vent. Rate : 077 BPM Atrial Rate : 000 BPM P-R Int : 000 ms QRS Dur : 068 ms QT Int : 392 ms P-R-T Axes : 000 035 057 degrees QTc Int : 443 ms Poor data quality Normal sinus rhythm Normal ECG When compared with ECG of 03-NOV-2023 04:41, No significant changes seen XR chest 2V 05/2024 FINDINGS: No consolidation, pleural effusion or pneumothorax. Cardiomediastinal silhouette demonstrates a masslike opacity in the superior mediastinum resulting right tracheal deviation. Calcified plaque thoracic aorta. The level thoracic spondylosis. Osteopenia versus osteoporosis. XR/XR chest 2V IMPRESSION: No acute airspace disease. Questionable superior mediastinal mass/lymphadenopathy. Atherosclerosis disease. ECHO 2020 Conclusions: - The left ventricular systolic function is normal. The visually estimated ejection fraction is between 60-65%. - No obvious valvular pathology seen on this study. Assessment and Plan Assessment Anesthesia Assessment: Chart Reviewed Documented by User: Yvette Ordaz MD 07/03/24 09:03 [facility] Active Problems Active Problems: All Active Problems COPD (chronic obstructive pulmonary disease) (Acute) Mediastinal mass (Acute) Excessive drinking alcohol (Acute)- last yesterday afternoon Atherosclerotic cardiovascular disease (Acute) Precordial chest pain (Acute) Essential hypertension (Acute) Other and unspecified hyperlipidemia (Acute) Chronic lung disease (Acute) COPD exacerbation (Acute) Nicotine dependence, cigarettes, uncomplicated (Acute) H/o NM about 7 years ago. Denies recent chest pain Denies UMA Past Medical History Medical History Excessive drinking alcohol Atherosclerotic cardiovascular disease Essential hypertension Other and unspecified hyperlipidemia COPD (chronic obstructive pulmonary disease) Nicotine dependence, cigarettes, uncomplicated Family History Family History Father Alzheimer disease Myocardial infarction CVD (cardiovascular disease) Mother Alzheimer disease HTN (hypertension) Family history of problems with anesthesia: No Surgical History Surgical History History of cardiac catheterization (~09/16/14) History of Problems with Anesthesia: No Social History Social History Household Members: None Housing: House Are you a primary healthcare administration internship to a significant other at home: No Do you presently have visiting nurse or other home services: No Alcohol intake: current Alcohol intake frequency: 3 or more drinks per day Alcohol type: beer Comment: overflow Patient Tobacco Use Status: Former Tobacco user Tobacco use type: Cigarette Cigarette Packs Per Day: 1 Cigarettes Per Day: 20.0 Years Smoked: 51 Second Hand Smoke Exposure: No service: No Meds Allergies Allergy/AdvReac Type Severity Reaction Status Date / Time oxycodone AdvReac Unknown does not Verified 07/03/24 08:56 want unless necessary Home Medications ?Medication ?Instructions ?Recorded ?Confirmed ?Last Taken ?Type aspirin 81 mg tablet,delayed 81 mg PO DAILY 08/26/20 07/03/24 07/02/24 History release atorvastatin 20 mg tablet 20 mg PO DAILY 08/26/20 11/15/23 11/14/23 History lisinopril 20 mg tablet 20 mg PO DAILY 08/26/20 11/15/23 11/14/23 History metoprolol succinate 100 mg 100 mg PO DAILY 08/26/20 11/15/23 11/14/23 History tablet,extended release 24 hr nitroglycerin 0.4 mg sublingual 0.4 mg sublingual Q5M PRN Chest 08/26/20 11/15/23 11/14/23 History tablet Pain albuterol sulfate 90 mcg/actuation 2 puff inhalation QID PRN Wheezing 08/08/23 11/15/23 11/14/23 History aerosol inhaler cyanocobalamin (vitamin B-12) 1,000 mcg PO DAILY 08/08/23 11/15/23 11/14/23 History 1,000 mcg tablet (Vitamin B-12) furosemide 20 mg tablet 20 mg PO DAILY 08/08/23 11/15/23 11/14/23 History thiamine HCl (vitamin B1) 100 mg 100 mg PO DAILY 08/08/23 11/15/23 11/14/23 History tablet (Vitamin B-1) Exam Height,Weight and Vital Signs: Height 5 ft 7 in Weight 94.801 kg Vital Signs Temp Pulse Resp BP Pulse Ox O2 Del Method 07/03/24 08:35 98.0 F 72 18 159/80 H 97 Room Air Airway Mallampati Class: IV TM Dist: >3cm (Receding chin) Neck ROM: Full Heart: RRR Lungs: CTAB Assessment and Plan Assessment Anesthesia Assessment: Anesthesia Plan Discussed and Chart Reviewed Final Anesthetic Review Family History of Problems with Anesthesia: No History of Problems with Anesthesia: No NPO: Yes ASA Class: III Final Preanesthetic Review: No Changes in Pt Med Stat, Meds/Allgs Chart Reviewed, Consent Obtained/Reviewed and Anes Risks/Benef Reviewed Patient Risk: Intermediate Procedure Risk: Low Assessment/Block/Sedation in SS: Assess/Block/Sedation-SS Anesthetic Plan Anesthetic Plan: GA Disposition: Standard PACU
[2024-07-03] VITALS (9 sets, daily range): BP systolic 108–159; BP diastolic 51–80; PULSE 72–116; RESP 18–26; TEMP 36.2–36.7; O2SAT 96–100
--- NOTE | 2024-07-03 08:30 | MHC.SHP ---
Pre-Procedural Eval Section A - 24 Hr Update-Section A only Date of Service: 07/03/24 The patient is an INPATIENT: No Changes since office visit: Yes Patient answered all questions; No Cold of Flu in the past 2 weeks, No New Medical Problems and No Changes in Medication The patient has been examined within 24 hours of the surgical procedure. The History & Physical has been completed within 30 days and I have reviewed it.: No Section B - Complete if H&P > 30 days Chief Complaint: Other diseases of mediastinum, not elsewhere class Details of Present Illness: Pulmonary mass, mediastinal lymphadenopathy Relevant Family History (Specify if Yes): No Relevant Social History: Tobacco Use Present Medications: see Short Stay Collaborative assessment Medical History: Significant History (COPD) History of Previous Operations: No relevant previous surgery Allergies: Allergies Allergy/AdvReac Type Severity Reaction Status Date / Time oxycodone AdvReac Unknown does not Verified 06/06/24 11:03 want unless necessary Review of Systems Sugical H&P ROS: Negative: Constitution, Cardiovascular, Respiratory, Neurological, Psychiatric, Hem-Onc, Allergic/Immunologic, Gastrointestinal, Genitourinary, Musculoskeletal, Integumentary, Endocrine and Eyes/Ears/Nose/Throat Exam Surgical H&P Exam: Normal: HEENT, Normal: Heart, Normal: Lungs, Normal: Extremities, Normal: Abdomen, Normal: Skin and Normal: Neurological Plan Diagnosis/Plan: Unchanged I have reviewed the history and physical and performed a pertinent physical examination on my patient. No changes have occurred unless specified. Time Spent With Patient Time: Total time managing care of this patient today ____ minutes.
[2024-07-03] MEDS: clonazePAM 1 MG TABLET 2 MG PO (08:32)
[2024-07-03] MEDS: Lactated Ringers 1,000 ML 100 ML IVCONT (08:51)
[2024-07-03 09:10] LABS: Anion Gap 13 (12-20); Carbon Dioxide 26 mmol/L (22-29); Chloride 97 mmol/L (96-108); Potassium 4.8 mmol/L (3.3-5.1); Sodium 131 mmol/L (135-145)
--- NOTE | 2024-07-03 10:21 | PM.OP ---
Brief Operative Note Date of Service: 07/03/24 Pre-op diagnosis: Lung cancer Post-op diagnosis: same Procedure: EBUS bronchoscope advanced through the ET tube with patient intubated for procedure and visual inspection performed. No endobronchial lesions noted. Normal bronchial mucosa with no secretions noted. Thereafter, biopsy station 2 L was attempted, however was technically difficult. Therefore, ETT for the exchanged for an LMA and biopsy of station 2 L re-attempted with 3 passes and was successful with intraop pathology showing lymphocytes and carcinoma. Additional biopsy material sent for further pathologic testing. Biopsy site was not observed and no bleeding was noted. Patient tolerated the procedure well and was returned to PACU in stable condition. Surgeon: Devon Newberry MD Anesthesia: GETA and GLMA Was an Dental Instrument Maker used for this Procedure?: No Estimated blood loss (mL): 0 Condition: stable Disposition: PACU
[2024-07-03] MEDS: Albuterol/Iprat 2.5/0.5MG 3 ML AMPUL.NEB INHALE (11:06)
== END 2024-07-03 12:44 | disposition home or self-care (01) ==
PROVIDERS: Nurse Practitioner; PCP Physician Assistant Surgical; Visit Provider Internal Medicine Pulmonary Disease
PROC: (CPT 31652; principal; 2024-07-03 09:00)
DX: J98.59 Other diseases of mediastinum, not elsewhere classified (principal); C96.9 Malignant neoplasm of lymphoid, hematopoietic and related tissue, unspecified; C78.1 Secondary malignant neoplasm of mediastinum; J44.9 Chronic obstructive pulmonary disease, unspecified; R49.0 Dysphonia; I10 Essential (primary) hypertension; E78.5 Hyperlipidemia, unspecified; I25.10 Atherosclerotic heart disease of native coronary artery without angina pectoris; F10.10 Alcohol abuse, uncomplicated; Z79.899 Other long term (current) drug therapy; Z88.5 Allergy status to narcotic agent; F17.210 Nicotine dependence, cigarettes, uncomplicated
CPT/HCPCS: 31652; 36415; 80051; 88172; 88173; 88177; 88305; J0171; J1100; J1596; J2003; J2371; J2405; J2704; J3010

== ENCOUNTER → 2024-07-03 06:31 | Outpatient (BNV) | payer MEDICARE, MEDICAID, SELFPAY | PROVIDERS: PCP Physician Assistant Surgical; Visit Provider Internal Medicine Pulmonary Disease | DX: J98.59 Other diseases of mediastinum, not elsewhere classified (principal) | CPT/HCPCS: 31652 ==

== ENCOUNTER 2024-07-15 10:23 | Outpatient (AMB) | payer MEDICARE, MEDICAID, SELFPAY ==
[2024-07-15 10:29] VITALS: BP 109/60; PULSE 73; O2SAT 99; BMI 33.0
--- NOTE | 2024-07-15 10:29 | MHC.OFFVIS ---
Vital Signs 07/15/24 10:29 Height 5 ft 7 in Weight 210 lb 8.663 oz BMI 33.0 BP 109/60 Blood Pressure Location Rt brachial Position Sitting Pulse 73 Pulse Source Doppler Pulse Oximetry (%) 99 Oxygen Delivery Method Room Air Intake Visit Reasons: Bx results- Allergies oxycodone Adverse Reaction (Unknown, Verified 07/15/24 10:33) does not want unless necessary HPI HPI Bx results-: Details: 68-year-old gentleman, prior 40+ pack-year smoker, with underlying COPD of unclear severity followed by lung cancer screening program for the last several years who had a routine lung cancer screening CT chest that demonstrated an enlarged left upper paratracheal nodule, EBUS biopsy was performed and showed underlying squamous carcinoma. Patient has been referred to thoracic surgery and for PET scan. Patient respiratory symptoms are now well controlled on current regimen of albuterol MDI/nebs. He denies recent exacerbations. [facility] Medical History (Updated 07/15/24 @ 10:42 by Devon Newberry MD) Excessive drinking alcohol Atherosclerotic cardiovascular disease Essential hypertension Other and unspecified hyperlipidemia COPD (chronic obstructive pulmonary disease) Nicotine dependence, cigarettes, uncomplicated Surgical History (Updated 07/04/24 @ 08:53 by Sujata Salazar PA-C) History of bronchoscopy History of cardiac catheterization (~09/16/14) Family History Father Alzheimer disease Myocardial infarction CVD (cardiovascular disease) Mother Alzheimer disease HTN (hypertension) Social History Household Members: None Housing: House Are you a primary home care provider to a significant other at home: No Do you presently have visiting nurse or other home services: No Alcohol intake: current Alcohol intake frequency: 3 or more drinks per day Alcohol type: beer Comment: overflow Patient Tobacco Use Status: Former Tobacco user Tobacco use type: Cigarette Cigarette Packs Per Day: 1 Cigarettes Per Day: 20.0 Years Smoked: 51 Second Hand Smoke Exposure: No service: No Review of Systems Const Denies daytime sleepiness, Denies excessive sweating, Denies fatigue, Denies fever(s), Denies lethargy, Denies malaise, Denies night sweats, Denies snoring and Denies weight loss Eyes Denies blurry vision and Denies itchy eyes ENT Denies nasal congestion, Denies post nasal drip, Denies sinus pain, Denies sinus pressure and Denies other ( Thrush) Card Denies chest pain, Denies pedal edema, Denies dyspnea, Denies orthopnea and Denies paroxysmal nocturnal dyspnea Resp Denies cough, Denies hemoptysis, Denies excessive phlegm production, Denies dyspnea, Denies snoring and Denies wheezing GI Denies abdominal pain and Denies heartburn Musc Denies myalgias, Denies arthralgias and Denies joint swelling Skin/Breast Denies rash Neuro Denies memory loss and Denies seizure-like activity Psych Denies abnormal sleep pattern, Denies anxiety and Denies memory loss Endo Denies excessive sweating, Denies fatigue and Denies heat intolerance Hector/Lymph Denies easy bruising Aller/Immun Denies itchy eyes, Denies seasonal rhinorrhea and Denies wheezing Physical Exam Vital Signs: Last Vital Signs Pulse 73 07/15/24 10:29 BP 109/60 07/15/24 10:29 Pulse Ox 99 07/15/24 10:29 Oxygen Delivery Method Room Air 07/15/24 10:29 BMI result Body Mass Index 33.0 Const General: no acute distress and alert Nutritional Appearance: not obese Orientation/consciousness: Other orientation findings ( oriented) HEENT Head: Yes atraumatic Eyes General: appearance normal, both eyes and all related structures Sclerae: sclerae normal EOM: EOMs intact bilaterally Neck Neck: Yes supple Lymphatic: no lymphadenopathy noted Resp Effort & Inspection: normal respiratory effort and no use of accessory muscles Auscultation: clear to auscultation bilaterally Cardio Rate: regular rate Rhythm: regular rhythm Heart sounds: no gallops, no murmurs and no rubs Skin General skin exam: other ( warm) Extrem General: No clubbing, No cyanosis and No edema Assessment & Plan Assessment & Plan (1) Squamous carcinoma of lung: Code(s): C34.90 - Malignant neoplasm of unspecified part of unspecified bronchus or lung Category: Medical Plan: In mediastinal 2 L node. PET-CT is pending. Patient referred to thoracic surgery. (2) COPD (chronic obstructive pulmonary disease): Code(s): J44.9 - Chronic obstructive pulmonary disease, unspecified Category: Medical Plan: PFT is pending. Symptomatically now controlled on current regimen of albuterol MDI/nebs. Continue current regimen. Coding Level of Care Code Est Pt Level 4 (65201) Diagnoses Squamous carcinoma of lung C34.90 COPD (chronic obstructive pulmonary disease) J44.9
--- OUTSIDE RECORDS SUMMARY | 2024-07-15 12:04 | XMS_ITS | Patient Health Record ---
Author Organization [facility] Address [address] [place] [address] Care Team Providers Care Statement Clerk Name Role Phone Jeyson HERNANDEZ, Michael Primary Care Provider Cassandra Torres Unavailable [phone] Reason For Referral No Information Plan Of Treatment No Information Insurance Providers Payer Name Payer Address Payer Phone Subscriber Number Group Number Insured Name Patient Relationship to Insured Coverage Start Date Coverage End Date Medicare [employer] [address] [facility] [place] [address] [id number] Marques Hoskins Self - patient is the insured
--- OUTSIDE RECORDS SUMMARY | 2024-07-15 12:04 | XMS_ITS ---
Author Organization [facility] Address [address] [place] [address] Care Team Providers Care Senior Engineering Technician Name Role Phone Jeyson HERNANDEZ, Michael Primary Care Provider Cassandra Torres Unavailable [phone] Encounters Encounter Location Date Provider Diagnosis [facility] [address] [place] [address] 02/27/2024 Cassandra Good Plan Of Treatment No Information Progress Notes * Marques HOSKINSDOB:1955 (68 yo M)Acc No.[id number]:02/27/2024 Progress Notes Patient:?Marques HOSIKNS Provider:?Cassandra Good DPM :1955???Age:68 Y???Sex:Male Kody e:02/27/2024 Address:[address] [place], [place] [id number] Pcp:Michael Benítez MD Subjective: * Chief Complaints: [...] Good DPM Date:? Generated for Alfredo ni/Bronwyn/eTransmitting on:?07/15/2024 12:04 PM EDT
== END 2024-07-15 10:46 | disposition home or self-care (01) ==
LOC: HO.HPS 10:24
PROVIDERS: PCP Physician Assistant Surgical; Visit Provider Internal Medicine Pulmonary Disease
DX: C34.90 Malignant neoplasm of unspecified part of unspecified bronchus or lung (principal); J44.9 Chronic obstructive pulmonary disease, unspecified
CPT/HCPCS: 99214

== ENCOUNTER → 2024-07-15 10:23 | Outpatient (BNVA) | payer MEDICARE, MEDICAID, SELFPAY | PROVIDERS: PCP Physician Assistant Surgical; Visit Provider Internal Medicine Pulmonary Disease | DX: C34.90 Malignant neoplasm of unspecified part of unspecified bronchus or lung (principal); J44.9 Chronic obstructive pulmonary disease, unspecified | CPT/HCPCS: 99212 ==

== ENCOUNTER 2024-07-21 09:01 | Outpatient (AMB) | payer MEDICARE, MEDICAID, SELFPAY ==
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
[2024-07-21 09:10] VITALS: BP 129/63; PULSE 71; BMI 32.9
== END 2024-07-21 09:21 | disposition home or self-care (01) ==
LOC: HO.HGS 09:01
PROVIDERS: PCP Physician Assistant Surgical; Visit Provider Surgery
DX: J98.59 Other diseases of mediastinum, not elsewhere classified (principal); J44.9 Chronic obstructive pulmonary disease, unspecified
CPT/HCPCS: 99204

== ENCOUNTER → 2024-07-21 09:01 | Outpatient (BNVA) | payer MEDICARE, MEDICAID, SELFPAY | PROVIDERS: PCP Physician Assistant Surgical; Visit Provider Surgery | DX: J44.9 Chronic obstructive pulmonary disease, unspecified (principal); J98.59 Other diseases of mediastinum, not elsewhere classified; Z87.891 Personal history of nicotine dependence | CPT/HCPCS: 99202 ==